=== PATIENT | female | born 1960 | race Caucasian/White ===

== ENCOUNTER 2016-10-11 15:59 | Emergency (ER) | payer MEDICARE ==
[~2016-10-11] VITALS: Ht 154.9 cm; Wt 56.7 kg
[~2016-10-11 15:59] MED LIST: ALPR0.25 PO; ALPR0.5T PO; ALPR1TAB2 PO; AMLO2.5T PO; AMOX1TAB11 PO; AMOX1TAB61 PO; AZIT1PAC7 PO; BUDE10.2 IH; CEFP200T PO; CLON0.5T3 PO; DOXY100C2 PO; DOXY100T PO; ESOM20CA PO; GUAI600T38 PO; HYDR-2666 PO; HYDR-2680 PO; IBUP200T77 PO; IPRA3AMP IH; IPRA3AMP NEB; LEVO500T38 PO; LISI-334 PO; LISI-338 PO; METH4TAB2 PO; MONT10TA9 PO; ONDA8TAB9 PO; PARO20TA2 PO; PRED-220 PO; PRED20TA PO; PREG25CA PO; PROAIR HFA8.5 GM INH; PROM5SYR2 PO; ROFL500T PO; SUCR1TAB29 PO; TIOT18CA IH; UMEC1DIS IH; VENTOLIN HFA18 GM INH
[2016-10-11] MEDS ORDERED: DIPHENHYDRAMINE 50 MG/ML VIAL IVP ONE (18:30)
[2016-10-11] MEDS ORDERED: METOCLOPRAMIDE HCL 10 MG/2 ML VIAL. IV ONE (18:30)
[2016-10-11] MEDS ORDERED: IV NORMAL SALINE 1000ML BAG 1,000 ML IV ONE (18:30)
[2016-10-11] MEDS ORDERED: KETOROLAC TROMETHAMINE 30 MG/ML SYRINGE. IV ONE (18:30)
[2016-10-11] MEDS ORDERED: IPRATRPIUM/ALBUTEROL 0.5/2.5MG 3 ML NEBU. NEB ONE (18:30)
[2016-10-11] MEDS ORDERED: PREDNISONE 20 MG TABLET PO ONE (18:30)
--- NOTE | 2016-10-11 18:47 | PHYS DOC ---
Past Medical History Past Medical History: Anxiety, COPD, Hypertension Additional Past Medical Histor: CATARACTS Past Surgical History: Hysterectomy, Tonsillectomy Additional Past Surgical Histo: SPINAL FUSION, LYPOMA REMOVED, R KNEE, L ELBOW NERVES Alcohol Use: None Drug Use: None Adult General Chief Complaint Chief Complaint: SHORTNESS OF BREATH HPI HPI Patient is a 56 year old female history of COPD and chronic respiratory failure presents complaining of 2 day history of increasing cough, wheezing, shortness of breath. She is on home oxygen as needed at home. She is currently not wearing it. She denies fever, chest pain, vomiting, diarrhea, abdominal pain, or urinary complaints. She is currently on Keflex again over cellulitis of her left foot. This is much improved, she says. Her cough is productive of a minimal amount of mucus. She does not smoke anymore. She has no other acute complaints. Also complains of a headache for 2 days. Review of Systems Review of Systems Constitutional: Denies fever or chills Eyes: Denies change in visual acuity, redness, or eye pain HENT: Denies nasal congestion or sore throat Respiratory: Coarse minimally productive cough, shortness of breath, and wheezing. Cardiovascular: Denies chest pain or palpitations. GI: Denies abdominal pain, nausea, vomiting, bloody stools or diarrhea : Denies dysuria or hematuria Musculoskeletal: Denies back pain or joint pain Integument: Denies rash or skin lesions Neurologic: Reports headache. Denies focal weakness or sensory changes Current Medications Current Medications Current Medications Medications (Trade) Dose Ordered Sig/Marian Start Time Stop Time Status Last Admin Dose Admin Albuterol/ Ipratropium (Duoneb) 3 ml 1X ONCE 10/11/16 18:30 10/11/16 18:31 DC 10/11/16 18:38 3 ML Diphenhydramine HCl (Benadryl) 25 mg 1X ONCE 10/11/16 18:30 10/11/16 18:31 DC 10/11/16 18:34 25 MG Ketorolac Tromethamine (Toradol) 30 mg 1X ONCE 10/11/16 18:30 10/11/16 18:31 DC 10/11/16 18:34 30 MG Metoclopramide HCl 10 mg 10 mg 1X ONCE 10/11/16 18:30 10/11/16 18:31 DC 10/11/16 18:34 10 MG Prednisone (Prednisone) 60 mg 1X ONCE 10/11/16 18:30 10/11/16 18:31 DC 10/11/16 18:34 60 MG Sodium Chloride (Iv Sodium Chloride 0.9% 1000ml Bag) 1,000 ml @ 1,000 mls/hr 1X ONCE 10/11/16 18:30 10/11/16 19:29 10/11/16 18:35 1,000 MLS/HR Allergies Allergies Allergies Coded Allergies Type Severity Reaction Last Updated Verified pregabalin Allergy Intermediate both legs from knee down to feet swelled up 09/09 Yes Physical Exam Physical Exam Constitutional: Well developed, well nourished, no acute distress, non-toxic appearance. HENT: Normocephalic, atraumatic, bilateral external ears normal, oropharynx moist, no oral exudates, nose normal. Eyes: PERRLA, EOMI, conjunctiva normal, no discharge. Neck: Normal range of motion, no tenderness, supple, no stridor. No JVD. Cardiovascular:Heart rate regular rhythm, no murmur Lungs & Thorax: Moderately diminished air movement throughout all lung white. Biphasic wheezing with prolonged expiratory phase. Breathing is nonlabored, no distress. Abdomen: Bowel sounds normal, soft, no tenderness, no masses, no pulsatile masses. Skin: Warm, dry, no erythema. Back: No tenderness, no CVA tenderness. Extremities: No tenderness, no cyanosis, no clubbing, ROM intact. Neurologic: Alert and oriented X 3, normal motor function, normal sensory function, no focal deficits noted. Psychologic: Affect normal, judgement normal, mood normal. Current Patient Data Vital Signs Vital Signs Date Time Temp Pulse Resp B/P Pulse Ox O2 Delivery O2 Flow Rate FiO2 10/11/16 18:39 100 Room Air 10/11/16 17:50 98.0 89 22 170/95 98.0 EKG EKG EKG: Sinus rhythm. Rate 82 bpm. Normal axis and intervals. No acute ST segment changes. EKG interpreted by me. Radiology/Procedures Radiology/Procedures [] Course & Med Decision Making Course & Med Decision Making Pertinent Labs and Imaging studies reviewed. (See chart for details) Patient appears to be having an acute COPD exacerbation. Her oxygen saturations are within normal range on room air. No respiratory distress. No fever. She feels much better after a DuoNeb treatment. She was given 60 mg of prednisone emergency department. I have advised every 4 hour nebs at home, continuing all of her maintenance inhalers, and I'm going to put her on a burst of prednisone for 4 more days. Return precautions were discussed and all questions were answered prior to discharge. I have recommended she follow up with her primary doctor within the week. Dragon Disclaimer Dragon Disclaimer This electronic medical record was generated, in whole or in part, using a voice recognition dictation system. Departure Departure Impression: Primary Impression: COPD exacerbation Disposition: HOME, SELF-CARE Condition: STABLE Referrals: FRANCES METZGER MD (PCP) Patient Instructions: Chronic Obstructive Pulmonary Disease Exacerbation, Easy- to-Read Additional Instructions: Continue with all of your home meds and inhalers as directed. Usual albuterol nebulizer every 4 hours as needed for shortness of breath and wheezing. Take the full course of the steroid, prednisone, as directed. If your breathing gets worse or is not improving, return to the emergency department. Otherwise, follow-up with your primary doctor in clinic within the week. Scripts Prednisone 20 Mg Tablet3 Tab PO DAILY #12 TAB Ref 0 Next dose 10/12/15 Prov:LINNETTE BOATENG MD 10/11/16 LINNETTE BOATENG MD Oct 11, 2016 18:43
[2016-10-11] MEDS ORDERED: PRED20TA PO (19:18)
[2016-10-11 19:29] VITALS: BP 172/77
--- NOTE | 2016-10-12 06:53 | EKG ---
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
== END 2016-10-11 19:30 | disposition home or self-care (01) ==
LOC: ER 15:59
DX: J44.1 Chronic obstructive pulmonary disease with (acute) exacerbation (principal); R51 Headache; I10 Essential (primary) hypertension; F41.9 Anxiety disorder, unspecified; Z90.710 Acquired absence of both cervix and uterus; Z98.49 Cataract extraction status, unspecified eye; Z99.81 Dependence on supplemental oxygen; Z88.8 Allergy status to other drugs, medicaments and biological substances
CPT/HCPCS: 94250; 94640; 96361; 96374; 96375; 99284; J1200; J1885; J2765; J7030; J7512; J7620; 93005

== ENCOUNTER 2016-11-05 18:09 | Inpatient (IN) | payer MEDICARE ==
[~2016-11-05] VITALS: Ht 157.5 cm; Wt 59.0 kg
[2016-11-05] MEDS ORDERED: IPRATRPIUM/ALBUTEROL 0.5/2.5MG 3 ML NEBU. ONE (18:20)
[2016-11-05] MEDS ORDERED: IV NORMAL SALINE 1000ML BAG 1,000 ML IV SCH (18:36)
--- NOTE | 2016-11-05 18:36 | PHYS DOC ---
Past Medical History Past Medical History: Anxiety, COPD, Hypertension Additional Past Medical Histor: CATARACTS Past Surgical History: Hysterectomy, Tonsillectomy Additional Past Surgical Histo: SPINAL FUSION, LYPOMA REMOVED, R KNEE, L ELBOW NERVES Alcohol Use: Rarely Drug Use: None Adult General Chief Complaint Chief Complaint: SHORTNESS OF BREATH HPI HPI Patient is a 56 year old female who presents with cough and SOB. Patient reports for the past week she has had a dry cough that then became productive today. She also reports fever/chills, wheezing, SOB, body aches. Has been on steroid taper (took 10mg prednisone today) and has been using breathing treatments with insufficient relief. No focal chest pain. Review of Systems Review of Systems Constitutional: Fever/chills Eyes: Denies change in visual acuity or eye pain HENT: Denies nasal congestion or sore throat Respiratory: Cough, wheezing, shortness of breath Cardiovascular: Denies chest pain GI: Denies abdominal pain, nausea, vomiting, bloody stools or diarrhea : Denies dysuria or hematuria Musculoskeletal: Body aches Integument: Denies rash or skin lesions Neurologic: Denies headache, focal weakness or sensory changes Current Medications Current Medications Current Medications Medications (Trade) Dose Ordered Sig/Marian Start Time Stop Time Status Last Admin Dose Admin Acetaminophen (Tylenol) 650 mg PRN Q4HRS PRN 11/05/16 22:00 11/06/16 21:59 Albuterol/ Ipratropium (Duoneb) 6 ml 1X ONCE 11/05/16 18:45 11/05/16 18:47 DC 11/05/16 18:44 6 ML Albuterol/ Ipratropium 3 ml 3 ml STK-MED ONCE 11/05/16 18:20 11/05/16 18:21 DC Morphine Sulfate 2 mg PRN Q2HR PRN 11/05/16 22:00 11/06/16 21:59 Ondansetron HCl (Zofran) 4 mg PRN Q8HRS PRN 11/05/16 22:00 11/06/16 21:59 Potassium Chloride (Klor-Con) 40 meq 1X ONCE 11/05/16 21:45 11/05/16 21:46 DC 11/05/16 22:01 40 MEQ Prednisone (Prednisone) 50 mg 1X ONCE 11/05/16 18:45 11/05/16 18:47 DC 11/05/16 18:50 50 MG Sodium Chloride (Iv Sodium Chloride 0.9% 1000ml Bag) 1,000 ml @ 1,000 mls/hr Q1H 11/05/16 18:36 11/05/16 19:35 DC 11/05/16 18:48 1,000 MLS/HR Allergies Allergies Allergies Coded Allergies Type Severity Reaction Last Updated Verified amlodipine Allergy Intermediate Swelling 11/05/16 Yes pregabalin Allergy Intermediate both legs from knee down to feet swelled up 09/09 Yes Physical Exam Physical Exam Constitutional: Well developed, well nourished, no acute distress, non-toxic appearance HENT: Normocephalic, atraumatic, bilateral external ears normal Eyes: EOMI, conjunctiva normal, no discharge Neck: Normal range of motion, no stridor Cardiovascular: Tachycardic, regular rhythm, no murmur Lungs & Thorax: Marked expiratory wheezing, dry cough Abdomen: Bowel sounds normal, soft, non-distended, no TTP Skin: Warm, dry, no erythema, no rash Extremities: No obvious deformity, no edema Neurologic: Alert and oriented X 3, no gross deficits noted Psychologic: Affect normal, judgement normal, mood normal Current Patient Data Vital Signs Vital Signs Date Time Temp Pulse Resp B/P Pulse Ox O2 Delivery O2 Flow Rate FiO2 11/05/16 18:45 26 11/05/16 18:36 Nasal Cannula 2.0 11/05/16 18:11 98.3 114 138/88 96 98.3 Lab Values Laboratory Tests Test 11/05/16 19:10 11/05/16 20:00 Influenza Type A Antigen Negative (NEGATIVE) Influenza Type B Antigen Negative (NEGATIVE) White Blood Count 6.5x10^3/uL (4.0-11.0) Red Blood Count 3.91x10^6/uL (3.50-5.40) Hemoglobin 11.4g/dL (12.0-15.5) L Hematocrit 35.1% (36.0-47.0) L Mean Corpuscular Volume 90fL (79-100) Mean Corpuscular Hemoglobin 29pg (25-35) Mean Corpuscular Hemoglobin Concent 33g/dL (31-37) Red Cell Distribution Width 14.2% (11.5-14.5) Platelet Count 305x10^3/uL (140-400) Neutrophils (%) (Auto) 71% (31-73) Lymphocytes (%) (Auto) 18% (24-48) L Monocytes (%) (Auto) 10% (0-9) H Eosinophils (%) (Auto) 1% (0-3) Basophils (%) (Auto) 1% (0-3) Neutrophils # (Auto) 4.6x10^3uL (1.8-7.7) Lymphocytes # (Auto) 1.2x10^3/uL (1.0-4.8) Monocytes # (Auto) 0.6x10^3/uL (0.0-1.1) Eosinophils # (Auto) 0.0x10^3/uL (0.0-0.7) Basophils # (Auto) 0.0x10^3/uL (0.0-0.2) Segmented Neutrophils % 53% (35-66) Band Neutrophils % 11% (0-9) H Lymphocytes % 23% (24-48) L Monocytes % 10% (0-10) Metamyelocytes % 2% (0-0) H Myelocytes % 1% (0-0) H Platelet Estimate Adequate (ADEQUATE) Sodium Level 141mmol/L (136-145) Potassium Level 3.2mmol/L (3.5-5.1) L Chloride Level 105mmol/L (98-107) Carbon Dioxide Level 30mmol/L (21-32) Anion Gap 6 (6-14) Blood Urea Nitrogen 12mg/dL (7-20) Creatinine 0.8mg/dL (0.6-1.0) Estimated GFR (Cockcroft-Gault) 73.7 Glucose Level 102mg/dL (70-99) H Calcium Level 8.5mg/dL (8.5-10.1) Troponin I Quantitative < 0.017ng/mL (0.000-0.055) Laboratory Tests 11/05/16 20:00 Laboratory Tests 11/05/16 20:00 EKG EKG EKG (my read): sinus rhythm, rate 117, normal axis, no acute ischemic changes Radiology/Procedures Radiology/Procedures CXR (my read): No significant change from prior Course & Med Decision Making Course & Med Decision Making Pertinent Labs and Imaging studies reviewed. (See chart for details) Patient is 56-year-old female who presents with cough, shortness of breath. Apparent COPD exacerbation, possibly exacerbated by viral URI. Will obtain EKG, chest x-ray, labs to evaluate. Breathing treatments, steroids, acetaminophen, pain medication ordered for relief of symptoms. Labs largely unremarkable. Slight hypokalemia, oral replacement ordered. Chest x-ray and EKG okay per my read. Patient still significantly wheezy and symptomatic even after treatments. Discussed results with patient. Discussed with Dr. Metzger, will admit under her care for further evaluation and treatment. Dragon Disclaimer Dragon Disclaimer This electronic medical record was generated, in whole or in part, using a voice recognition dictation system. Departure Departure Impression: Primary Impression: COPD exacerbation Disposition: ADMITTED INPATIENT Admitting Physician: Frances Metzger Condition: STABLE Referrals: FRANCES METZGER MD (PCP) KRISH GREENWOOD MD Nov 05, 2016 18:36
[2016-11-05] MEDS ORDERED: PREDNISONE 10 MG TABLET PO ONE (18:45)
[2016-11-05] MEDS ORDERED: MORPHINE SULFATE 4 MG/ML DISP.SYRIN. IV ONE (18:45)
[2016-11-05] MEDS ORDERED: IPRATRPIUM/ALBUTEROL 0.5/2.5MG 3 ML NEBU. NEB ONE (18:45)
[2016-11-05] MEDS ORDERED: ACETAMINOPHEN 500 MG TABLET PO ONE (18:45)
--- NOTE | 2016-11-05 18:57 | EKG ---
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
[2016-11-05 19:39] LABS: OBC FLU VALID
[2016-11-05 20:30] LABS: BASO % 1 % (0-3); EOS % 1 % (0-3); HEMATOCRIT 35.1 % (36.0-47.0); HEMOGLOBIN 11.4 g/dL (12.0-15.5); LYMPH # 1.2 x10^3/uL (1.0-4.8); LYMPH % 18 % (24-48); MEAN CORPUSCULAR HEMOGLOBIN 29 pg (25-35); MEAN CORPUSCULAR HGB CONC 33 g/dL (31-37); MEAN CORPUSCULAR VOLUME 90 fL (79-100); MONO % 10 % (0-9); NEUT % 71 % (31-73); PLATELET COUNT 305 x10^3/uL (140-400); RED BLOOD COUNT 3.91 x10^6/uL (3.50-5.40); RED CELL DISTRIBUTION WIDTH 14.2 % (11.5-14.5); WHITE BLOOD COUNT 6.5 x10^3/uL (4.0-11.0)
[2016-11-05 20:47] LABS: CALCIUM 8.5 mg/dL (8.5-10.1); CREATININE 0.8 mg/dL (0.6-1.0); GFR 73.7; POTASSIUM 3.2 mmol/L (3.5-5.1)
[2016-11-05 20:51] LABS: PLT ESTIMATE ADEQUATE (ADEQUATE)
[2016-11-05] MEDS ORDERED: POTASSIUM CHLORIDE 20 MEQ TABLET.ER. PO ONE (21:45)
[2016-11-05] MEDS ORDERED: ACETAMINOPHEN 325 MG TABLET. PO PRN (22:00)
[2016-11-05] MEDS ORDERED: ONDANSETRON PF 4 MG/2 ML VIAL. IV PRN (22:00)
--- NOTE | 2016-11-05 22:55 | ACF ---
Admission Forms Criteria COPD Clinical Indications for Admission to Inpatient Care (Place 'X' for any and all applicable criteria): Admission is indicated for ANY ONE of the following (1)(2)(3): [X]I. Acute exacerbation by high-risk comorbidity (e.g., pneumonia, dysrhythmia, heart failure, pleural effusion, pneumothorax) or severe underlying COPD (e.g., steroid dependent) [ ]II. Inpatient admission required rather than observation care (see Chronic Obstructive Pulmonary Disease: Observation Care) because of ANY ONE of the following: [ ]a) New or pre-existing signs or symptoms of COPD (eg, dyspnea or Tachypnea at rest or with minimal activity) that persist despite outpatient and observation care treatment [ ]b) New-onset hypoxemia (room air SaO2 less than 90%, PO2 less than 60 mm Hg (8.0 kPa)) that persists despite outpatient and observation care treatment [ ]c) Worsening of pre-existing hypoxemia (eg, new or increased requirement for supplemental oxygen to maintain oxygenation at baseline level) that persists despite outpatient and observation care treatment, with oxygen treatment needs performable only in acute inpatient setting [ ]d) Hypercarbia (PCO2 greater than 40 mm Hg (5.3 kPa))-induced respiratory acidosis (pH less than 7.35) that persists despite outpatient and observation care treatment [ ]e) Supplemental oxygen or respiratory treatments for over 24 hours that are performable only in acute inpatient setting [ ]f) Chest tube placement with active evacuation (e.g., suction, drainage) (5) [ ]g) Other condition, treatment or monitoring requiring inpatient admission [ ]III. Planned invasive surgical or diagnostic procedures requiring acute- care hospitalization [ ]IV. Acute respiratory failure (e.g., uncompensated hypercarbia, severe hypoxemia) [ ]V. Severe comorbid condition (e.g., severe steroid myopathy, acute vertebral fracture) that has acutely worsened pulmonary function [ ]. Confusion state, lethargy, obtundation, stupor or coma Extended stay beyond goal length of stay may be needed for (31)(32): [ ]a ) Respiratory Failure. [ ]b) Severe or persisting hypoxemia or hypercarbia [ ]c) Severe or persistent dyspnea [ ]d) Comorbidities (e.g. chronic heart failure, atrial fibrillation with rapid response, pneumonia) [ ]e) Malnutrition The original [facility] content created by [facility] has been revised. The portions of the content which have been revised are identified through the use of italic text or in bold, and [facility] has neither reviewed nor approved the modified material. All other unmodified content is copyright [facility]. Please see references footnoted in the original [facility] edition 2016 Admission Criteria Met?: Yes ARNEL COBB Nov 05, 2016 22:55
[2016-11-05 23:16] VITALS: BP 123/75
[2016-11-06 03:10] VITALS: BP 119/55
[2016-11-06] MEDS: MORPHINE SULFATE 2 MG/ML DISP.SYRIN. IV PRN ×3 (04:16→17:50)
[2016-11-06] MEDS: methylPREDNISolone SOD SUCC PF 40 MG/ML VIAL. IV SCH ×3 (05:02→21:15)
[2016-11-06] MEDS: GUAIFENESIN/CODEINE 100mg/10mg 5 ML LIQUID. PO PRN ×3 (05:02→21:22)
[2016-11-06] MEDS: HYDROCODONE/APAP 10/325 TABLET. PO PRN ×4 (05:02→21:22)
[2016-11-06] MEDS: ALBUTEROL SULFATE 2.5 MG/3 ML NEBU. NEB PRN (05:23)
[2016-11-06 06:24] LABS: BASO % 0 % (0-3); EOS % 0 % (0-3); HEMATOCRIT 35.5 % (36.0-47.0); HEMOGLOBIN 11.6 g/dL (12.0-15.5); LYMPH # 0.4 x10^3/uL (1.0-4.8); LYMPH % 9 % (24-48); MEAN CORPUSCULAR HEMOGLOBIN 29 pg (25-35); MEAN CORPUSCULAR HGB CONC 33 g/dL (31-37); MEAN CORPUSCULAR VOLUME 89 fL (79-100); MONO % 3 % (0-9); NEUT % 88 % (31-73); PLATELET COUNT 388 x10^3/uL (140-400); RED BLOOD COUNT 3.98 x10^6/uL (3.50-5.40); RED CELL DISTRIBUTION WIDTH 14.2 % (11.5-14.5); WHITE BLOOD COUNT 4.4 x10^3/uL (4.0-11.0)
[2016-11-06 06:51] LABS: CALCIUM 8.8 mg/dL (8.5-10.1); CREATININE 0.7 mg/dL (0.6-1.0); GFR 85.9
[2016-11-06 06:55] LABS: POTASSIUM 5.2 mmol/L (3.5-5.1)
[2016-11-06 07:00] VITALS: BP 132/79
[2016-11-06] MEDS: IPRATRPIUM/ALBUTEROL 0.5/2.5MG 3 ML NEBU. NEB SCH ×4 (07:22→19:08)
--- NOTE | 2016-11-06 07:51 | RAD ---
Two view chest History:Cough, shortness of breath . PA and lateral views of the chest are submitted. Comparison: 11/02/2016 Findings: There is no significant infiltrate, pleural effusion, or pneumothorax. The pericardial cardiac silhouette is within normal limits in size. The trachea is in the midline. There is again emphysema. There is atherosclerotic calcification of the aortic arch. Impression: There is no evidence of acute cardiopulmonary disease. There is again emphysema.
[2016-11-06 11:00] VITALS: BP 130/56
--- NOTE | 2016-11-06 12:47 | PDOC ---
OBJECTIVE Vital Signs Vital Signs Date Time Temp Pulse Resp B/P Pulse Ox O2 Delivery O2 Flow Rate FiO2 11/06/16 11:12 Nasal Cannula 2.0 11/06/16 11:07 96 Nasal Cannula 2.0 11/06/16 11:00 97.5 93 20 130/56 98 Nasal Cannula 2.0 97.5 11/06/16 09:09 96 Nasal Cannula 2.0 11/06/16 08:39 96 Nasal Cannula 2.0 11/06/16 08:00 Nasal Cannula 2.0 11/06/16 07:22 96 Nasal Cannula 2.0 11/06/16 07:00 97.7 89 20 132/79 97 Nasal Cannula 2.0 97.7 11/06/16 06:14 97 Nasal Cannula 2.0 11/06/16 05:24 97 Nasal Cannula 2.0 11/06/16 05:02 18 96 Nasal Cannula 2.0 11/06/16 04:52 18 11/06/16 04:16 18 96 Nasal Cannula 2.0 11/06/16 03:10 97.6 76 20 119/55 96 Nasal Cannula 97.6 11/05/16 23:55 Nasal Cannula 2.0 11/05/16 23:42 Nasal Cannula 2.0 11/05/16 23:16 97.7 84 20 123/75 97 Nasal Cannula 97.7 11/05/16 22:48 82 137/78 95 Nasal Cannula 11/05/16 22:18 88 151/100 95 Nasal Cannula 11/05/16 21:48 84 127/73 96 Room Air 11/05/16 21:18 84 135/86 96 Nasal Cannula 11/05/16 20:48 86 138/81 97 Nasal Cannula 11/05/16 20:18 86 126/75 97 Nasal Cannula 11/05/16 19:48 92 121/77 98 Nasal Cannula 11/05/16 18:45 26 11/05/16 18:36 Nasal Cannula 2.0 11/05/16 18:33 Nasal Cannula 2.0 11/05/16 18:11 98.3 114 28 138/88 96 Nasal Cannula 2 98.3 I & O Intake and Output 11/06/16 07:00 Intake Total 960 ml Output Total 1 ml Balance 959 ml Intake Oral 960 ml Output Stool Total 1 ml # Voids 1 ASSESSMENT/PLAN Assessment/Plan [id number] H&P dictated Problems: COMMENT Lab Laboratory Tests Test 11/05/16 19:10 11/05/16 20:00 11/06/16 05:30 11/06/16 05:40 Influenza Type A Antigen Negative (NEGATIVE) Influenza Type B Antigen Negative (NEGATIVE) White Blood Count 6.5x10^3/uL (4.0-11.0) 4.4x10^3/uL (4.0-11.0) Red Blood Count 3.91x10^6/uL (3.50-5.40) 3.98x10^6/uL (3.50-5.40) Hemoglobin 11.4g/dL (12.0-15.5) 11.6g/dL (12.0-15.5) Hematocrit 35.1% (36.0-47.0) 35.5% (36.0-47.0) Mean Corpuscular Volume 90fL (79-100) 89fL (79-100) Mean Corpuscular Hemoglobin 29pg (25-35) 29pg (25-35) Mean Corpuscular Hemoglobin Concent 33g/dL (31-37) 33g/dL (31-37) Red Cell Distribution Width 14.2% (11.5-14.5) 14.2% (11.5-14.5) Platelet Count 305x10^3/uL (140-400) 388x10^3/uL (140-400) Neutrophils (%) (Auto) 71% (31-73) 88% (31-73) Lymphocytes (%) (Auto) 18% (24-48) 9% (24-48) Monocytes (%) (Auto) 10% (0-9) 3% (0-9) Eosinophils (%) (Auto) 1% (0-3) 0% (0-3) Basophils (%) (Auto) 1% (0-3) 0% (0-3) Neutrophils # (Auto) 4.6x10^3uL (1.8-7.7) 3.9x10^3uL (1.8-7.7) Lymphocytes # (Auto) 1.2x10^3/uL (1.0-4.8) 0.4x10^3/uL (1.0-4.8) Monocytes # (Auto) 0.6x10^3/uL (0.0-1.1) 0.1x10^3/uL (0.0-1.1) Eosinophils # (Auto) 0.0x10^3/uL (0.0-0.7) 0.0x10^3/uL (0.0-0.7) Basophils # (Auto) 0.0x10^3/uL (0.0-0.2) 0.0x10^3/uL (0.0-0.2) Segmented Neutrophils % 53% (35-66) Band Neutrophils % 11% (0-9) Lymphocytes % 23% (24-48) Monocytes % 10% (0-10) Metamyelocytes % 2% (0-0) Myelocytes % 1% (0-0) Platelet Estimate Adequate (ADEQUATE) Sodium Level 141mmol/L (136-145) 140mmol/L (136-145) Potassium Level 3.2mmol/L (3.5-5.1) 5.2mmol/L (3.5-5.1) Chloride Level 105mmol/L (98-107) 106mmol/L (98-107) Carbon Dioxide Level 30mmol/L (21-32) 30mmol/L (21-32) Anion Gap 6 (6-14) 4 (6-14) Blood Urea Nitrogen 12mg/dL (7-20) 13mg/dL (7-20) Creatinine 0.8mg/dL (0.6-1.0) 0.7mg/dL (0.6-1.0) Estimated GFR (Cockcroft-Gault) 73.7 85.9 Glucose Level 102mg/dL (70-99) 128mg/dL (70-99) Calcium Level 8.5mg/dL (8.5-10.1) 8.8mg/dL (8.5-10.1) Troponin I Quantitative < 0.017ng/mL (0.000-0.055) FRANCES METZGER MD Nov 06, 2016 12:47
[2016-11-06] MEDS ORDERED: PROMETHAZINE HCL PO SCH (13:00)
[2016-11-06] MEDS ORDERED: ONDANSETRON ODT 4 MG TAB.RAPDIS PO PRN (13:00)
[2016-11-06] MEDS ORDERED: CODEINE PO SCH (13:00)
[2016-11-06] MEDS: CEFTRIAXONE SODIUM 1 GM in IV NORMAL SALINE 50ML 50 ML IV SCH (13:47)
[2016-11-06] MEDS: GUAIFENESIN ER 600 MG TABLET.ER PO SCH ×2 (13:48→21:15)
[2016-11-06] MEDS: PAROXETINE 20 MG TABLET. PO SCH (13:48)
[2016-11-06] MEDS: LISINOPRIL 20 MG TABLET PO SCH (13:48)
[2016-11-06] MEDS: AZITHROMYCIN 250 MG TABLET PO SCH (13:48)
[2016-11-06 15:00] VITALS: BP 147/79
[2016-11-06] MEDS: LACTOBACILLUS ACIDOPH & BULGAR 1 TABLET. PO SCH (15:22)
[2016-11-06] MEDS: ALPRAZOLAM 1 MG TABLET PO PRN ×2 (15:22→21:21)
[2016-11-06] MEDS: LOSARTAN POTASSIUM 50 MG TABLET. PO SCH (15:29)
[2016-11-06] MEDS: PANTOPRAZOLE 40 MG TABLET. PO SCH (17:48)
[2016-11-06 19:00] VITALS: BP 111/64
--- NOTE | 2016-11-06 20:57 | HP ---
ADMIT DATE: HISTORY OF PRESENT ILLNESS: The patient is a 56-year-old. She is admitted to room 514. She is known to have a history of COPD. She presented to the Emergency Room complaining of increasing cough and shortness of breath. She has been treated as an outpatient with antibiotics and steroids. However, she continued to have increasing shortness of breath and despite her breathing treatment at home, she still felt she cannot breathe and decided to come to the Emergency Room. She was given treatment in the Emergency Room and was still tight and wheezing. She was admitted for continuous monitoring and IV steroids with bronchodilators. PAST MEDICAL HISTORY: Significant for COPD and emphysema. She requires oxygen. She does have history of ____ peripheral neuropathy, peripheral vascular disease, hypertension, diverticulosis and diverticulitis, history of colon polyps, history of gastroesophageal reflux disease, history of cervical cancer, endometriosis, status post hysterectomy, history of osteoarthritis, history of back surgery with spine fusion, also knee surgery and elbow surgery, history of depression and anxiety, previous history of tonsillectomy, tinnitus and cataract. FAMILY HISTORY: Positive for hypertension. SOCIAL HISTORY: She stopped smoking, but has a 40-year history of smoking. She drinks alcohol occasionally. She denies use of any other drugs. She has received her pneumonia vaccine and flu shot and she is up to date on her tetanus shot. REVIEW OF SYSTEMS: CONSTITUTIONAL: Denies fever or chills. EYES: Denies visual changes. HEENT: Denies nasal congestion. RESPIRATORY: She does have cough, became productive to yellowish sputum last couple of days. Started as a dry cough about a week ago. She does have wheezing and shortness of breath. CARDIOVASCULAR: Denies chest pain. GASTROINTESTINAL: Denies abdominal pain, nausea, vomiting, diarrhea. GENITOURINARY: Denies dysuria. She does have stress incontinence. MUSCULOSKELETAL: She does have arthritis and body aches. DERMATOLOGY: Denies rash. NEUROLOGY: Denies focal weakness or headache. PHYSICAL EXAMINATION: GENERAL: She is alert and oriented, in mild distress due to the shortness of breath. HEENT: Normocephalic, atraumatic. Eyes: Pupils equal, round and reactive to light and accommodation. Conjunctivae normal. NECK: Supple. HEART: Mildly tachycardic, but regular rhythm. LUNGS: With diffuse wheezing bilaterally. Her wheezing was audible even without a stethoscope. ABDOMEN: Soft, nontender, no organomegaly, masses or bruits. EXTREMITIES: No edema, clubbing or cyanosis. NEUROLOGIC: Intact. IMPRESSION: 1. Chronic obstructive pulmonary disease exacerbation. 2. Acute on chronic bronchitis. 3. Hypokalemia, replaced. 4. Hypertension, hypertensive cardiovascular disease. OTHER DIAGNOSES: As per past medical history. FRANCES METZGER MD DR: DENZEL/[place] JOB#: [id number] / [id number]
[2016-11-06] MEDS: MONTELUKAST SODIUM 10 MG TABLET. PO SCH (21:15)
[2016-11-06 23:00] VITALS: BP 121/83
[2016-11-07] MEDS: HYDROCODONE/APAP 10/325 TABLET. PO PRN ×3 (02:36→21:33)
[2016-11-07 03:07] VITALS: BP 144/65
[2016-11-07] MEDS: GUAIFENESIN/CODEINE 100mg/10mg 5 ML LIQUID. PO PRN ×3 (03:30→21:32)
[2016-11-07] MEDS: ALBUTEROL SULFATE 2.5 MG/3 ML NEBU. NEB PRN (03:35)
[2016-11-07] MEDS: methylPREDNISolone SOD SUCC PF 40 MG/ML VIAL. IV SCH ×3 (06:10→21:27)
[2016-11-07 07:00] VITALS: BP 137/78
[2016-11-07] MEDS: IPRATRPIUM/ALBUTEROL 0.5/2.5MG 3 ML NEBU. NEB SCH ×4 (07:43→18:17)
[2016-11-07] MEDS ORDERED: AMLODIPINE BESYLATE 2.5 MG TABLET PO SCH (09:00)
[2016-11-07] MEDS ORDERED: NON FORMULARY ITEM (Umeclidinium Brm/Vilanterol Tr (Anoro Ellipta 62.5-25 Mcg Inh) 1 EACH) IH SCH (09:00)
[2016-11-07] MEDS: GUAIFENESIN ER 600 MG TABLET.ER PO SCH ×2 (09:15→21:27)
[2016-11-07] MEDS: AZITHROMYCIN 250 MG TABLET PO SCH (09:15)
[2016-11-07] MEDS: PANTOPRAZOLE 40 MG TABLET. PO SCH ×2 (09:15→17:46)
[2016-11-07] MEDS: PAROXETINE 20 MG TABLET. PO SCH (09:15)
[2016-11-07] MEDS: LACTOBACILLUS ACIDOPH & BULGAR 1 TABLET. PO SCH (09:15)
[2016-11-07] MEDS: LOSARTAN POTASSIUM 50 MG TABLET. PO SCH (09:16)
[2016-11-07] MEDS: LISINOPRIL 20 MG TABLET PO SCH (09:18)
--- NOTE | 2016-11-07 10:04 | PDOC ---
SUBJECTIVE Subjective still wheezing, but stable OBJECTIVE Vital Signs Vital Signs Date Time Temp Pulse Resp B/P Pulse Ox O2 Delivery O2 Flow Rate FiO2 11/07/16 09:27 22 96 Nasal Cannula 2.0 11/07/16 09:18 80 137/78 11/07/16 09:16 80 137/78 11/07/16 08:00 Nasal Cannula 2.0 11/07/16 07:43 96 Nasal Cannula 2.0 11/07/16 07:00 96.6 80 21 137/78 97 Nasal Cannula 2.0 96.6 11/07/16 03:35 20 Nasal Cannula 11/07/16 03:34 Nasal Cannula 2.0 11/07/16 03:07 97.7 92 20 144/65 95 Nasal Cannula 97.7 11/07/16 02:36 20 Nasal Cannula 2.0 11/06/16 23:00 95.9 92 20 121/83 97 Nasal Cannula 95.9 11/06/16 21:22 20 Nasal Cannula 2.0 11/06/16 19:10 Nasal Cannula 2.0 11/06/16 19:00 97.9 94 20 111/64 97 Nasal Cannula 97.9 11/06/16 18:20 96 Nasal Cannula 2.0 11/06/16 17:50 96 Nasal Cannula 2.0 11/06/16 16:29 96 2.0 11/06/16 15:59 Nasal Cannula 2.0 11/06/16 15:29 93 130/56 11/06/16 15:29 96 Nasal Cannula 2.0 11/06/16 15:00 97.9 93 20 147/79 98 Nasal Cannula 2.0 97.9 11/06/16 13:48 93 130/56 11/06/16 11:12 Nasal Cannula 2.0 11/06/16 11:07 96 Nasal Cannula 2.0 11/06/16 11:00 97.5 93 20 130/56 98 Nasal Cannula 2.0 97.5 I & O Intake and Output 11/07/16 07:00 Intake Total 440 ml Balance 440 ml Intake Oral 440 ml PHYSICAL EXAM Physical Exam lungs still with wheezes heart RRR abd soft ext no edema ASSESSMENT/PLAN Assessment/Plan continue plans Problems: FRANCES METZGER MD Nov 07, 2016 10:04
[2016-11-07 11:02] VITALS: BP 121/64
[2016-11-07] MEDS: ALPRAZOLAM 1 MG TABLET PO PRN ×2 (13:48→21:33)
[2016-11-07] MEDS: CEFTRIAXONE SODIUM 1 GM in IV NORMAL SALINE 50ML 50 ML IV SCH (13:58)
[2016-11-07 15:00] VITALS: BP 152/72
[2016-11-07 19:00] VITALS: BP 112/62
[2016-11-07] MEDS: MONTELUKAST SODIUM 10 MG TABLET. PO SCH (21:27)
[2016-11-07 23:00] VITALS: BP 126/66
[2016-11-08] MEDS: ALBUTEROL SULFATE 2.5 MG/3 ML NEBU. NEB PRN ×2 (02:59→12:38)
[2016-11-08 03:00] VITALS: BP 136/81
[2016-11-08] MEDS: GUAIFENESIN/CODEINE 100mg/10mg 5 ML LIQUID. PO PRN ×3 (04:15→18:27)
[2016-11-08] MEDS: methylPREDNISolone SOD SUCC PF 40 MG/ML VIAL. IV SCH ×3 (04:15→20:37)
[2016-11-08] MEDS: HYDROCODONE/APAP 10/325 TABLET. PO PRN ×3 (04:15→17:18)
[2016-11-08 07:00] VITALS: BP 155/77
[2016-11-08] MEDS: IPRATRPIUM/ALBUTEROL 0.5/2.5MG 3 ML NEBU. NEB SCH ×4 (08:02→20:09)
[2016-11-08] MEDS: PANTOPRAZOLE 40 MG TABLET. PO SCH ×2 (08:07→17:14)
[2016-11-08] MEDS: AZITHROMYCIN 250 MG TABLET PO SCH (08:08)
[2016-11-08] MEDS: GUAIFENESIN ER 600 MG TABLET.ER PO SCH ×2 (08:08→20:36)
[2016-11-08] MEDS: LACTOBACILLUS ACIDOPH & BULGAR 1 TABLET. PO SCH (08:08)
[2016-11-08] MEDS: PAROXETINE 20 MG TABLET. PO SCH (08:08)
[2016-11-08] MEDS: LOSARTAN POTASSIUM 50 MG TABLET. PO SCH (08:09)
[2016-11-08] MEDS: LISINOPRIL 20 MG TABLET PO SCH (08:10)
[2016-11-08] MEDS: ALPRAZOLAM 1 MG TABLET PO PRN ×2 (08:16→20:36)
--- NOTE | 2016-11-08 09:15 | PDOC ---
SUBJECTIVE Subjective feels tired and worn out, still wheezing , just had breathing treatment OBJECTIVE Vital Signs Vital Signs Date Time Temp Pulse Resp B/P Pulse Ox O2 Delivery O2 Flow Rate FiO2 11/08/16 08:17 Nasal Cannula 2.0 11/08/16 08:10 91 136/81 11/08/16 08:09 91 136/81 11/08/16 08:03 97 Nasal Cannula 2.0 11/08/16 08:00 Nasal Cannula 2.0 11/08/16 07:00 97.9 96 18 155/77 94 Nasal Cannula 2.0 97.9 11/08/16 05:15 18 96 Nasal Cannula 2.0 11/08/16 04:15 20 96 Nasal Cannula 2.0 11/08/16 03:00 97.5 91 22 136/81 95 Nasal Cannula 2.0 97.5 11/08/16 03:00 96 Nasal Cannula 2.0 11/07/16 23:00 97.9 76 22 126/66 93 Nasal Cannula 2.0 97.9 11/07/16 21:33 18 97 Nasal Cannula 2.0 11/07/16 19:20 Nasal Cannula 2.0 11/07/16 19:00 97.9 73 22 112/62 97 Nasal Cannula 2.0 97.9 11/07/16 18:17 94 Nasal Cannula 2.0 11/07/16 15:59 Nasal Cannula 2.0 11/07/16 15:00 97.7 91 21 152/72 96 Nasal Cannula 2.0 97.7 11/07/16 12:14 96 Nasal Cannula 2.0 11/07/16 11:02 98.8 86 20 121/64 97 Nasal Cannula 2.0 98.8 11/07/16 09:27 22 96 Nasal Cannula 2.0 11/07/16 09:18 80 137/78 11/07/16 09:16 80 137/78 I & O Intake and Output 11/08/16 07:00 Intake Total 2430 ml Output Total 3 ml Balance 2427 ml Intake Oral 2430 ml Output Urine Total 3 ml # Voids 6 PHYSICAL EXAM Physical Exam lungs still with wheezes heart RRR abd soft ext no edema ASSESSMENT/PLAN Assessment/Plan 1. Chronic obstructive pulmonary disease exacerbation. 2. Acute on chronic bronchitis. 3. Hypokalemia, replaced. 4. Hypertension, hypertensive cardiovascular disease. continue treatment plans , still not better but stable , nothing more to add except give her more time on current therapy Problems: FRANCES METZGER MD Nov 08, 2016 09:15
[2016-11-08 11:30] VITALS: BP 150/93
[2016-11-08] MEDS: CEFTRIAXONE SODIUM 1 GM in IV NORMAL SALINE 50ML 50 ML IV SCH (12:10)
--- NOTE | 2016-11-08 12:41 | EKG ---
[facility] [address] [place] [address] Test Date: 2016-11-08 Test Time: 12:39:54 Pat Name: CHUCKIE LOCO Department: Room: [facility] Gender: F Molder Vacuum: EVELYN : 1960 Requested By: FRANCES METZGER Order Number: [id number] Reading MD: Kris Doyle Measurements Intervals [place] Rate: 88 P: 63 AK: 128 QRS: 54 QRSD: 74 T: 34 QT: 338 QTc: 412 Interpretive Statements SINUS RHYTHM Electronically Signed On 11-10-2016 14:34:00 [employer] by Kris Doyle
[2016-11-08] MEDS: MORPHINE SULFATE 2 MG/ML DISP.SYRIN. IV PRN ×2 (13:19→20:36)
[2016-11-08 13:38] LABS: HCO3 ABG 31 mmol/L (21-28); PCO2 ABG 52 mmHg (35-46); PH ABG 7.39 (7.35-7.45); PO2 ABG 89 mmHg (75-108); SAT O2 ABG 97 % (92-99)
[2016-11-08 13:39] LABS: FIO2 ABG 32
[2016-11-08 15:00] VITALS: BP 143/72
--- NOTE | 2016-11-08 17:37 | PDOC ---
PULMONARY PROGRESS NOTES Vitals Vital Signs Date Time Temp Pulse Resp B/P Pulse Ox O2 Delivery O2 Flow Rate FiO2 11/08/16 17:18 Nasal Cannula 2.0 11/08/16 15:00 96.4 97 16 143/72 97 96.4 General: Alert, Oriented X4, No acute distress HEENT: Other Lungs: Wheezing, Other Cardiovascular: S1, S2 Abdomen: Soft, Non-tender Extremities: No Edema Labs Laboratory Tests Test 11/08/16 13:28 11/08/16 13:30 Troponin I Quantitative < 0.017ng/mL (0.000-0.055) O2 Saturation 97% (92-99) Arterial Blood pH 7.39 (7.35-7.45) Arterial Blood pCO2 at Patient Temp 52mmHg (35-46) Arterial Blood pO2 at Patient Temp 89mmHg (75-108) Arterial Blood HCO3 31mmol/L (21-28) Arterial Blood Base Excess 5mmol/L (-3-3) FiO2 32 Laboratory Tests Test 11/08/16 13:28 11/08/16 13:30 Troponin I Quantitative < 0.017ng/mL (0.000-0.055) O2 Saturation 97% (92-99) Arterial Blood pH 7.39 (7.35-7.45) Arterial Blood pCO2 at Patient Temp 52mmHg (35-46) Arterial Blood pO2 at Patient Temp 89mmHg (75-108) Arterial Blood HCO3 31mmol/L (21-28) Arterial Blood Base Excess 5mmol/L (-3-3) FiO2 32 Medications Active Scripts Medications Dose Route/Sig Days Date Category Dose Instructions Prednisone 20 Mg Tablet 3 Tab PO DAILY 10/11/16 Rx Next dose 10/12/15 Zofran (Ondansetron Hcl) 8 Mg Tablet 1 Tab PO Q8HRS PRN 07/14/16 Rx Prednisone 20 Mg Tablet 20 Mg PO 3X3DAY THEN 2X3DAY T 06/27/16 Rx Prometh-Codein 6.25-10 mg/5 ml (Promethazine HCl/Codeine) 5 Ml Syrup 5 Ml PO QID 10 06/27/16 Rx Paroxetine Hcl 20 Mg Tablet 20 Mg PO DAILY 30 06/27/16 Rx Montelukast Sodium Tablet (Montelukast Sodium) 10 Mg Tablet 10 Mg PO QHS 30 06/27/16 Rx Mucinex (Guaifenesin) 600 Mg Tablet.er 600 Mg PO BID 30 06/27/16 Rx Cefpodoxime Proxetil 200 Mg Tablet 200 Mg PO BID 5 06/27/16 Rx Amlodipine Besylate 2.5 Mg Tablet 2.5 Mg PO DAILY 30 06/27/16 Rx Lortab 10-325 mg Tablet (Hydrocodone/Acetaminophen) 1 Each Tablet 1 Tab PO PRN Q4HRS PRN 06/20/16 Reported Xanax (Alprazolam) 1 Mg Tablet 1 Tab PO QIDPRN PRN 06/20/16 Reported Anoro Ellipta 62.5-25 Mcg Inh (Umeclidinium Brm/Vilanterol Tr) 1 Each Disk.w.dev 1 Each IH DAILY 06/06/16 Reported Duoneb 0.5-3(2.5) Mg/3 Ml (Albuterol/Ipratropium) 3 Ml Ampul.neb 3 Ml NEB RTQID 30 03/19/16 Rx Ventolin Hfa Inhaler (Albuterol Sulfate) 18 Gm Hfa.aer.ad 2 Puff INH PRN Q4HRS PRN 03/14/16 Reported Nexium Capsule (Esomeprazole Magnesium) 20 Mg Capsule.dr 2 Cap PO DAILY 03/14/16 Reported Lisinopril 20 Mg Tablet 1 Tab PO DAILY 03/14/16 Reported Daliresp (Roflumilast) 500 Mcg Tablet 1 Tab PO DAILY 03/14/16 Reported Impression . full note dictated thanks acute resp distress sec to aecopd and GERD no need for bipap at this time thanks GOPI GONZALEZ MD Nov 08, 2016 17:37
[2016-11-08 19:00] VITALS: BP 163/85
[2016-11-08] MEDS: MONTELUKAST SODIUM 10 MG TABLET. PO SCH (20:36)
[2016-11-09] VITALS (7 sets, daily range): BP systolic 124–169; BP diastolic 77–87
[2016-11-09] MEDS: IPRATRPIUM/ALBUTEROL 0.5/2.5MG 3 ML NEBU. NEB SCH ×4 (05:06→20:50)
[2016-11-09 05:36] LABS: HEMATOCRIT 34.9 % (36.0-47.0); HEMOGLOBIN 11.5 g/dL (12.0-15.5); RED BLOOD COUNT 3.89 x10^6/uL (3.50-5.40); RED CELL DISTRIBUTION WIDTH 14.2 % (11.5-14.5); WHITE BLOOD COUNT 8.2 x10^3/uL (4.0-11.0)
[2016-11-09] MEDS: ALPRAZOLAM 1 MG TABLET PO PRN ×3 (05:43→20:35)
[2016-11-09] MEDS: MORPHINE SULFATE 2 MG/ML DISP.SYRIN. IV PRN (05:44)
[2016-11-09] MEDS: methylPREDNISolone SOD SUCC PF 40 MG/ML VIAL. IV SCH ×3 (05:44→20:35)
[2016-11-09 05:47] LABS: CALCIUM 8.9 mg/dL (8.5-10.1); CREATININE 0.8 mg/dL (0.6-1.0); GFR 73.7; POTASSIUM 4.5 mmol/L (3.5-5.1)
[2016-11-09] MEDS: ALBUTEROL SULFATE 2.5 MG/3 ML NEBU. NEB PRN ×2 (08:01→13:17)
[2016-11-09] MEDS: PANTOPRAZOLE 40 MG TABLET. PO SCH ×2 (08:51→18:30)
[2016-11-09] MEDS: LACTOBACILLUS ACIDOPH & BULGAR 1 TABLET. PO SCH (08:51)
[2016-11-09] MEDS: AZITHROMYCIN 250 MG TABLET PO SCH (08:51)
[2016-11-09] MEDS: LOSARTAN POTASSIUM 50 MG TABLET. PO SCH (08:51)
[2016-11-09] MEDS: GUAIFENESIN ER 600 MG TABLET.ER PO SCH ×2 (08:51→20:35)
[2016-11-09] MEDS: GUAIFENESIN/CODEINE 100mg/10mg 5 ML LIQUID. PO PRN ×2 (08:52→18:31)
[2016-11-09] MEDS: LISINOPRIL 20 MG TABLET PO SCH (08:52)
[2016-11-09] MEDS: PAROXETINE 20 MG TABLET. PO SCH (08:52)
--- NOTE | 2016-11-09 09:40 | PDOC ---
SUBJECTIVE Subjective still wheezing, but somewhat better OBJECTIVE Vital Signs Vital Signs Date Time Temp Pulse Resp B/P Pulse Ox O2 Delivery O2 Flow Rate FiO2 11/09/16 08:52 92 136/84 11/09/16 08:51 92 136/84 11/09/16 08:01 97 Nasal Cannula 3.0 11/09/16 07:15 98.4 92 22 136/84 96 Nasal Cannula 3.0 98.4 11/09/16 06:11 97 Nasal Cannula 3.0 11/09/16 05:44 97 Nasal Cannula 3.0 11/09/16 05:06 97 Nasal Cannula 3.0 11/09/16 03:08 97.5 64 20 169/86 96 Nasal Cannula 3.0 97.5 11/09/16 03:06 97.5 91 20 135/79 96 Nasal Cannula 97.5 11/08/16 20:36 96 Nasal Cannula 3.0 11/08/16 20:10 96 Nasal Cannula 3.0 11/08/16 20:00 Nasal Cannula 3.0 11/08/16 19:00 97.7 92 20 163/85 95 Nasal Cannula 97.7 11/08/16 18:45 Nasal Cannula 2.0 11/08/16 17:18 Nasal Cannula 2.0 11/08/16 15:50 Nasal Cannula 3.0 11/08/16 15:00 96.4 97 16 143/72 97 Nasal Cannula 2.0 96.4 11/08/16 13:19 Nasal Cannula 3.0 11/08/16 12:38 96 Nasal Cannula 3.0 11/08/16 11:50 98 Nasal Cannula 2.0 11/08/16 11:30 97.4 94 22 150/93 98 Nasal Cannula 2.0 97.4 I & O Intake and Output 11/09/16 07:00 Intake Total 570 ml Output Total 3 ml Balance 567 ml Intake Oral 520 ml IV Total 50 ml Urine/Stool Mix 3 ml PHYSICAL EXAM Physical Exam bilateral scattered wheezes ASSESSMENT/PLAN Assessment/Plan continue present plans Problems: COMMENT Lab Laboratory Tests Test 11/08/16 13:28 11/08/16 13:30 11/09/16 04:16 Troponin I Quantitative < 0.017ng/mL (0.000-0.055) O2 Saturation 97% (92-99) Arterial Blood pH 7.39 (7.35-7.45) Arterial Blood pCO2 at Patient Temp 52mmHg (35-46) Arterial Blood pO2 at Patient Temp 89mmHg (75-108) Arterial Blood HCO3 31mmol/L (21-28) Arterial Blood Base Excess 5mmol/L (-3-3) FiO2 32 White Blood Count 8.2x10^3/uL (4.0-11.0) Red Blood Count 3.89x10^6/uL (3.50-5.40) Hemoglobin 11.5g/dL (12.0-15.5) Hematocrit 34.9% (36.0-47.0) Mean Corpuscular Volume 90fL (79-100) Mean Corpuscular Hemoglobin 29pg (25-35) Mean Corpuscular Hemoglobin Concent 33g/dL (31-37) Red Cell Distribution Width 14.2% (11.5-14.5) Platelet Count 368x10^3/uL (140-400) Sodium Level 145mmol/L (136-145) Potassium Level 4.5mmol/L (3.5-5.1) Chloride Level 105mmol/L (98-107) Carbon Dioxide Level 36mmol/L (21-32) Anion Gap 4 (6-14) Blood Urea Nitrogen 26mg/dL (7-20) Creatinine 0.8mg/dL (0.6-1.0) Estimated GFR (Cockcroft-Gault) 73.7 Glucose Level 109mg/dL (70-99) Calcium Level 8.9mg/dL (8.5-10.1) FRANCES METZGER MD Nov 09, 2016 09:40
--- NOTE | 2016-11-09 11:51 | PDOC ---
PULMONARY PROGRESS NOTES Subjective PT LESS SOA AT TIMES Vitals Vital Signs Date Time Temp Pulse Resp B/P Pulse Ox O2 Delivery O2 Flow Rate FiO2 11/09/16 11:13 98.2 76 20 124/85 97 Nasal Cannula 3.0 98.2 General: Alert, No acute distress HEENT: Other Lungs: Wheezing Cardiovascular: S1, S2 Abdomen: Soft, Non-tender Neuro Exam: Alert Extremities: No Edema Skin: Warm Labs Laboratory Tests Test 11/08/16 13:28 11/08/16 13:30 11/09/16 04:16 Troponin I Quantitative < 0.017ng/mL (0.000-0.055) O2 Saturation 97% (92-99) Arterial Blood pH 7.39 (7.35-7.45) Arterial Blood pCO2 at Patient Temp 52mmHg (35-46) Arterial Blood pO2 at Patient Temp 89mmHg (75-108) Arterial Blood HCO3 31mmol/L (21-28) Arterial Blood Base Excess 5mmol/L (-3-3) FiO2 32 White Blood Count 8.2x10^3/uL (4.0-11.0) Red Blood Count 3.89x10^6/uL (3.50-5.40) Hemoglobin 11.5g/dL (12.0-15.5) Hematocrit 34.9% (36.0-47.0) Mean Corpuscular Volume 90fL (79-100) Mean Corpuscular Hemoglobin 29pg (25-35) Mean Corpuscular Hemoglobin Concent 33g/dL (31-37) Red Cell Distribution Width 14.2% (11.5-14.5) Platelet Count 368x10^3/uL (140-400) Sodium Level 145mmol/L (136-145) Potassium Level 4.5mmol/L (3.5-5.1) Chloride Level 105mmol/L (98-107) Carbon Dioxide Level 36mmol/L (21-32) Anion Gap 4 (6-14) Blood Urea Nitrogen 26mg/dL (7-20) Creatinine 0.8mg/dL (0.6-1.0) Estimated GFR (Cockcroft-Gault) 73.7 Glucose Level 109mg/dL (70-99) Calcium Level 8.9mg/dL (8.5-10.1) Laboratory Tests Test 11/08/16 13:28 11/08/16 13:30 11/09/16 04:16 Troponin I Quantitative < 0.017ng/mL (0.000-0.055) O2 Saturation 97% (92-99) Arterial Blood pH 7.39 (7.35-7.45) Arterial Blood pCO2 at Patient Temp 52mmHg (35-46) Arterial Blood pO2 at Patient Temp 89mmHg (75-108) Arterial Blood HCO3 31mmol/L (21-28) Arterial Blood Base Excess 5mmol/L (-3-3) FiO2 32 White Blood Count 8.2x10^3/uL (4.0-11.0) Red Blood Count 3.89x10^6/uL (3.50-5.40) Hemoglobin 11.5g/dL (12.0-15.5) Hematocrit 34.9% (36.0-47.0) Mean Corpuscular Volume 90fL (79-100) Mean Corpuscular Hemoglobin 29pg (25-35) Mean Corpuscular Hemoglobin Concent 33g/dL (31-37) Red Cell Distribution Width 14.2% (11.5-14.5) Platelet Count 368x10^3/uL (140-400) Sodium Level 145mmol/L (136-145) Potassium Level 4.5mmol/L (3.5-5.1) Chloride Level 105mmol/L (98-107) Carbon Dioxide Level 36mmol/L (21-32) Anion Gap 4 (6-14) Blood Urea Nitrogen 26mg/dL (7-20) Creatinine 0.8mg/dL (0.6-1.0) Estimated GFR (Cockcroft-Gault) 73.7 Glucose Level 109mg/dL (70-99) Calcium Level 8.9mg/dL (8.5-10.1) Medications Active Scripts Medications Dose Route/Sig Days Date Category Dose Instructions Prednisone 20 Mg Tablet 3 Tab PO DAILY 10/11/16 Rx Next dose 10/12/15 Zofran (Ondansetron Hcl) 8 Mg Tablet 1 Tab PO Q8HRS PRN 07/14/16 Rx Prednisone 20 Mg Tablet 20 Mg PO 3X3DAY THEN 2X3DAY T 06/27/16 Rx Prometh-Codein 6.25-10 mg/5 ml (Promethazine HCl/Codeine) 5 Ml Syrup 5 Ml PO QID 10 06/27/16 Rx Paroxetine Hcl 20 Mg Tablet 20 Mg PO DAILY 30 06/27/16 Rx Montelukast Sodium Tablet (Montelukast Sodium) 10 Mg Tablet 10 Mg PO QHS 30 06/27/16 Rx Mucinex (Guaifenesin) 600 Mg Tablet.er 600 Mg PO BID 30 06/27/16 Rx Cefpodoxime Proxetil 200 Mg Tablet 200 Mg PO BID 5 06/27/16 Rx Amlodipine Besylate 2.5 Mg Tablet 2.5 Mg PO DAILY 30 06/27/16 Rx Lortab 10-325 mg Tablet (Hydrocodone/Acetaminophen) 1 Each Tablet 1 Tab PO PRN Q4HRS PRN 06/20/16 Reported Xanax (Alprazolam) 1 Mg Tablet 1 Tab PO QIDPRN PRN 06/20/16 Reported Anoro Ellipta 62.5-25 Mcg Inh (Umeclidinium Brm/Vilanterol Tr) 1 Each Disk.w.dev 1 Each IH DAILY 06/06/16 Reported Duoneb 0.5-3(2.5) Mg/3 Ml (Albuterol/Ipratropium) 3 Ml Ampul.neb 3 Ml NEB RTQID 30 03/19/16 Rx Ventolin Hfa Inhaler (Albuterol Sulfate) 18 Gm Hfa.aer.ad 2 Puff INH PRN Q4HRS PRN 03/14/16 Reported Nexium Capsule (Esomeprazole Magnesium) 20 Mg Capsule.dr 2 Cap PO DAILY 03/14/16 Reported Lisinopril 20 Mg Tablet 1 Tab PO DAILY 03/14/16 Reported Daliresp (Roflumilast) 500 Mcg Tablet 1 Tab PO DAILY 03/14/16 Reported Impression . 1. Acute respiratory failure secondary to acute exacerbation of chronic obstructive pulmonary disease precipitated with secondary to nonspecific acute bacterial bronchitis and reflux. 2. Acute reflux causing possible mild aspiration, leading to bronchospasm and wheezing. 3. Hypertension. Plan . AVOID CAFFEINE CONTINUE THE SAME I INFORMED THE PT THAT SHE WILL COUGH FOR 4-6 WEEKS, S/P INFECTIOUS COUGH SHE WILL WHEEZE FOR A WHILE D/C HOME ON STEROIDS AND TESSALON PERLES IN AM OK BY GOPI JARQUIN MD Nov 09, 2016 11:51
--- NOTE | 2016-11-09 12:33 | CONS ---
DATE OF CONSULTATION: 11/08/2016 ATTENDING PHYSICIAN: Dr. Marco Arriola. REASON FOR CONSULTATION: The patient seen in pulmonary consultation at the request of Dr. Arriola for acute onset of shortness of air. HISTORY OF PRESENT ILLNESS: The patient is a 56-year-old admitted several days ago with acute exacerbation of COPD. She was improving earlier today, a ____ was called. The patient became increasingly more short of breath, epigastric discomfort, some lower chest discomfort wrapping around her chest. Rapid response was called. I was called with her presentation stat arterial blood gas was obtained revealing a pH of 7.39, PaCO2 of 52, pO2 of 89. The patient was given nebulized treatments and steroids. At the time of my evaluation, her episode has completely resolved. According to her caffeine intake, she is drinking lots of caffeine and complains of previous heartburn type of symptoms. She has a cough, mostly nonproductive. Her main complaint is the wheezing. She denies nausea, vomiting, diarrhea. PAST MEDICAL HISTORY: Remarkable for COPD of the emphysematous type. She requires oxygen on a p.r.n. basis. She has a history of peripheral vascular disease, peripheral neuropathy, diverticulosis, diverticulitis, previous history of colon polyps, gastroesophageal reflux, cervical cancer and endometriosis status post hysterectomy, previous history of osteoarthritis, back surgery, spinal fusion, knee surgery, elbow surgery, cataract, and depression. PAST SURGICAL HISTORY: As above. FAMILY HISTORY: Hypertension. SOCIAL HISTORY: She quit tobacco, smoked for 40 years 1 pack of cigarettes a day, denied any illicit drug use. REVIEW OF SYSTEMS: As indicated above, otherwise, a 10-point system was reviewed and negative. CURRENT MEDICATIONS: List was reviewed. PHYSICAL EXAMINATION: GENERAL: The patient during my evaluation with no significant respiratory distress on 2 liters of oxygen supplementation. HEENT: Eyes, the sclerae were nonicteric. NECK: Jugular venous distention was not elevated. No lymphadenopathy. CHEST: Full expansion. LUNGS: Very poor airway flow with no wheezes. CARDIOVASCULAR: Regular rate and rhythm with S1, S2, no S3. ABDOMEN: Soft, nontender, nondistended. EXTREMITIES: No clubbing, cyanosis or edema. NEUROLOGIC: The patient was awake, alert, following commands. A detailed neuro exam was not performed. LABORATORY DATA: Reviewed. Chest x-ray revealed no acute cardiopulmonary process. Arterial blood gas as indicated above. White count was normal. Hemoglobin and hematocrit were noted. Electrolytes were noted. IMPRESSION: 1. Acute respiratory failure secondary to acute exacerbation of chronic obstructive pulmonary disease precipitated with secondary to nonspecific acute bacterial bronchitis and reflux. 2. Acute reflux causing possible mild aspiration, leading to bronchospasm and wheezing. 3. Hypertension. PLAN: 1. Arterial blood gas obtained, I have reviewed this as indicated above, the patient does not require BiPAP at this time. 2. Continue current medical management. 3. The patient instructed to avoid all caffeinated beverages and drink water. 4. Continue Protonix. 5. Head of bed at 30 degrees. I do appreciate the privilege in sharing in the patient's care. GOPI GONZALEZ MD DR: DALLIN/[place] JOB#: [id number] / [id number]
[2016-11-09] MEDS: HYDROCODONE/APAP 10/325 TABLET. PO PRN ×3 (12:59→22:46)
[2016-11-09] MEDS: CEFTRIAXONE SODIUM 1 GM in IV NORMAL SALINE 50ML 50 ML IV SCH (12:59)
[2016-11-09] MEDS: MONTELUKAST SODIUM 10 MG TABLET. PO SCH (20:35)
[2016-11-10] MEDS: ALBUTEROL SULFATE 2.5 MG/3 ML NEBU. NEB PRN ×3 (00:54→09:11)
[2016-11-10] MEDS: GUAIFENESIN/CODEINE 100mg/10mg 5 ML LIQUID. PO PRN ×3 (01:06→16:51)
[2016-11-10 03:00] VITALS: BP 153/86
[2016-11-10] MEDS: ALPRAZOLAM 1 MG TABLET PO PRN ×3 (05:49→21:39)
[2016-11-10] MEDS: HYDROCODONE/APAP 10/325 TABLET. PO PRN ×3 (05:50→14:18)
[2016-11-10] MEDS: methylPREDNISolone SOD SUCC PF 40 MG/ML VIAL. IV SCH ×2 (05:50→14:18)
[2016-11-10] MEDS: IPRATRPIUM/ALBUTEROL 0.5/2.5MG 3 ML NEBU. NEB SCH ×4 (06:06→19:26)
[2016-11-10 07:00] VITALS: BP 164/79
[2016-11-10] MEDS: PAROXETINE 20 MG TABLET. PO SCH (09:25)
[2016-11-10] MEDS: GUAIFENESIN ER 600 MG TABLET.ER PO SCH ×2 (09:25→21:39)
[2016-11-10] MEDS: LOSARTAN POTASSIUM 50 MG TABLET. PO SCH (09:25)
[2016-11-10] MEDS: LACTOBACILLUS ACIDOPH & BULGAR 1 TABLET. PO SCH (09:26)
[2016-11-10] MEDS: AZITHROMYCIN 250 MG TABLET PO SCH (09:26)
[2016-11-10] MEDS: PANTOPRAZOLE 40 MG TABLET. PO SCH ×2 (09:26→16:46)
[2016-11-10] MEDS: LISINOPRIL 20 MG TABLET PO SCH (09:26)
--- NOTE | 2016-11-10 09:42 | PDOC ---
PULMONARY PROGRESS NOTES Subjective PT LESS SOA AT TIMES Vitals Vital Signs Date Time Temp Pulse Resp B/P Pulse Ox O2 Delivery O2 Flow Rate FiO2 11/10/16 09:26 102 164/79 11/10/16 09:12 Nasal Cannula 2.0 11/10/16 07:00 97.5 21 95 97.5 General: Alert, No acute distress HEENT: Other Lungs: Wheezing Cardiovascular: S1, S2 Abdomen: Soft, Non-tender Neuro Exam: Alert Extremities: No Edema Skin: Warm Labs Laboratory Tests Test 11/08/16 13:28 11/08/16 13:30 11/09/16 04:16 Troponin I Quantitative < 0.017ng/mL (0.000-0.055) O2 Saturation 97% (92-99) Arterial Blood pH 7.39 (7.35-7.45) Arterial Blood pCO2 at Patient Temp 52mmHg (35-46) Arterial Blood pO2 at Patient Temp 89mmHg (75-108) Arterial Blood HCO3 31mmol/L (21-28) Arterial Blood Base Excess 5mmol/L (-3-3) FiO2 32 White Blood Count 8.2x10^3/uL (4.0-11.0) Red Blood Count 3.89x10^6/uL (3.50-5.40) Hemoglobin 11.5g/dL (12.0-15.5) Hematocrit 34.9% (36.0-47.0) Mean Corpuscular Volume 90fL (79-100) Mean Corpuscular Hemoglobin 29pg (25-35) Mean Corpuscular Hemoglobin Concent 33g/dL (31-37) Red Cell Distribution Width 14.2% (11.5-14.5) Platelet Count 368x10^3/uL (140-400) Sodium Level 145mmol/L (136-145) Potassium Level 4.5mmol/L (3.5-5.1) Chloride Level 105mmol/L (98-107) Carbon Dioxide Level 36mmol/L (21-32) Anion Gap 4 (6-14) Blood Urea Nitrogen 26mg/dL (7-20) Creatinine 0.8mg/dL (0.6-1.0) Estimated GFR (Cockcroft-Gault) 73.7 Glucose Level 109mg/dL (70-99) Calcium Level 8.9mg/dL (8.5-10.1) Medications Active Scripts Medications Dose Route/Sig Days Date Category Dose Instructions Prednisone 20 Mg Tablet 3 Tab PO DAILY 10/11/16 Rx Next dose 10/12/15 Zofran (Ondansetron Hcl) 8 Mg Tablet 1 Tab PO Q8HRS PRN 07/14/16 Rx Prednisone 20 Mg Tablet 20 Mg PO 3X3DAY THEN 2X3DAY T 06/27/16 Rx Prometh-Codein 6.25-10 mg/5 ml (Promethazine HCl/Codeine) 5 Ml Syrup 5 Ml PO QID 10 06/27/16 Rx Paroxetine Hcl 20 Mg Tablet 20 Mg PO DAILY 30 06/27/16 Rx Montelukast Sodium Tablet (Montelukast Sodium) 10 Mg Tablet 10 Mg PO QHS 30 06/27/16 Rx Mucinex (Guaifenesin) 600 Mg Tablet.er 600 Mg PO BID 30 06/27/16 Rx Cefpodoxime Proxetil 200 Mg Tablet 200 Mg PO BID 5 06/27/16 Rx Amlodipine Besylate 2.5 Mg Tablet 2.5 Mg PO DAILY 30 06/27/16 Rx Lortab 10-325 mg Tablet (Hydrocodone/Acetaminophen) 1 Each Tablet 1 Tab PO PRN Q4HRS PRN 06/20/16 Reported Xanax (Alprazolam) 1 Mg Tablet 1 Tab PO QIDPRN PRN 06/20/16 Reported Anoro Ellipta 62.5-25 Mcg Inh (Umeclidinium Brm/Vilanterol Tr) 1 Each Disk.w.dev 1 Each IH DAILY 06/06/16 Reported Duoneb 0.5-3(2.5) Mg/3 Ml (Albuterol/Ipratropium) 3 Ml Ampul.neb 3 Ml NEB RTQID 30 03/19/16 Rx Ventolin Hfa Inhaler (Albuterol Sulfate) 18 Gm Hfa.aer.ad 2 Puff INH PRN Q4HRS PRN 03/14/16 Reported Nexium Capsule (Esomeprazole Magnesium) 20 Mg Capsule.dr 2 Cap PO DAILY 03/14/16 Reported Lisinopril 20 Mg Tablet 1 Tab PO DAILY 03/14/16 Reported Daliresp (Roflumilast) 500 Mcg Tablet 1 Tab PO DAILY 03/14/16 Reported Impression . 1. Acute respiratory failure secondary to acute exacerbation of chronic obstructive pulmonary disease precipitated with secondary to nonspecific acute bacterial bronchitis and reflux. 2. Acute reflux causing possible mild aspiration, leading to bronchospasm and wheezing. 3. Hypertension. Plan . AVOID CAFFEINE CONTINUE THE SAME I INFORMED THE PT THAT SHE WILL COUGH FOR 4-6 WEEKS, S/P INFECTIOUS COUGH SHE WILL WHEEZE FOR A WHILE D/C HOME ON STEROIDS AND TESSALON PERLES IN AM OK BY GOPI JARQUIN MD Nov 10, 2016 09:42
--- NOTE | 2016-11-10 09:43 | PDOC ---
SUBJECTIVE Subjective still very tight this AM called for extra breathing treatment OBJECTIVE Vital Signs Vital Signs Date Time Temp Pulse Resp B/P Pulse Ox O2 Delivery O2 Flow Rate FiO2 11/10/16 09:26 102 164/79 11/10/16 09:25 102 164/79 11/10/16 09:12 Nasal Cannula 2.0 11/10/16 07:00 97.5 102 21 164/79 95 Nasal Cannula 2.0 97.5 11/10/16 06:50 97 Nasal Cannula 4.0 11/10/16 06:07 97 Nasal Cannula 4.0 11/10/16 05:50 91 Nasal Cannula 3.0 11/10/16 03:00 97.9 106 22 153/86 91 Nasal Cannula 3.0 97.9 11/10/16 00:55 99 Nasal Cannula 4.0 11/09/16 22:54 98.4 96 20 150/87 98 Nasal Cannula 3.0 98.4 11/09/16 22:46 99 Nasal Cannula 3.0 11/09/16 20:52 99 Nasal Cannula 3.0 11/09/16 20:00 Nasal Cannula 3.0 11/09/16 19:00 97.9 93 20 148/77 97 Nasal Cannula 3.0 97.9 11/09/16 18:31 Nasal Cannula 2.0 11/09/16 16:06 99 Nasal Cannula 3.0 11/09/16 15:11 98.2 89 18 136/78 97 Nasal Cannula 3.0 98.2 11/09/16 13:18 99 Nasal Cannula 3.0 11/09/16 12:59 Nasal Cannula 2.0 11/09/16 12:07 99 Nasal Cannula 3.0 11/09/16 11:13 98.2 76 20 124/85 97 Nasal Cannula 3.0 98.2 I & O Intake and Output 11/10/16 07:00 Intake Total 1410 ml Balance 1410 ml Intake Oral 1360 ml IV Total 50 ml PHYSICAL EXAM Physical Exam lungs with few scattered wheezes heart RRR abd soft ext no edema ASSESSMENT/PLAN Assessment/Plan improving very slowly , she is very nervous about going home father diagnosed with flu, assured can do prophylactic Tamiflu, will keep another day to ensure improvement before D/C hope to discharge in AM Problems: FRANCES METZGER MD Nov 10, 2016 09:43
[2016-11-10 11:10] VITALS: BP 153/77
[2016-11-10] MEDS: CEFTRIAXONE SODIUM 1 GM in IV NORMAL SALINE 50ML 50 ML IV SCH ×2 (13:00→14:18)
[2016-11-10 14:58] VITALS: BP 147/91
[2016-11-10 19:59] VITALS: BP 124/70
[2016-11-10] MEDS: CEFPODOXIME PROXETIL 200 MG TABLET PO SCH (21:39)
[2016-11-10] MEDS: MONTELUKAST SODIUM 10 MG TABLET. PO SCH (21:39)
[2016-11-10 23:39] VITALS: BP 142/70
[2016-11-11] MEDS: HYDROCODONE/APAP 10/325 TABLET. PO PRN ×2 (02:18→08:16)
[2016-11-11] MEDS: GUAIFENESIN/CODEINE 100mg/10mg 5 ML LIQUID. PO PRN ×2 (02:18→08:17)
[2016-11-11] MEDS: ALBUTEROL SULFATE 2.5 MG/3 ML NEBU. NEB PRN (02:34)
[2016-11-11 03:59] VITALS: BP 170/87
[2016-11-11] MEDS: PANTOPRAZOLE 40 MG TABLET. PO SCH (06:40)
[2016-11-11] MEDS: IPRATRPIUM/ALBUTEROL 0.5/2.5MG 3 ML NEBU. NEB SCH (06:54)
[2016-11-11 07:15] VITALS: BP 163/97
[2016-11-11] MEDS: AZITHROMYCIN 250 MG TABLET PO SCH (08:15)
[2016-11-11] MEDS: LACTOBACILLUS ACIDOPH & BULGAR 1 TABLET. PO SCH (08:15)
[2016-11-11] MEDS: LISINOPRIL 20 MG TABLET PO SCH (08:16)
[2016-11-11] MEDS: LOSARTAN POTASSIUM 50 MG TABLET. PO SCH (08:16)
[2016-11-11] MEDS: GUAIFENESIN ER 600 MG TABLET.ER PO SCH (08:16)
[2016-11-11] MEDS: ALPRAZOLAM 1 MG TABLET PO PRN (08:17)
[2016-11-11] MEDS: CEFPODOXIME PROXETIL 200 MG TABLET PO SCH (08:17)
[2016-11-11] MEDS: PAROXETINE 20 MG TABLET. PO SCH (08:17)
[2016-11-11] MEDS ORDERED: PREDNISONE 20 MG TABLET PO SCH ×2 (09:00)
[2016-11-11] MEDS ORDERED: OSEL75CA PO (09:47)
[2016-11-11] MEDS ORDERED: CEFP200T PO (09:47)
[2016-11-11] MEDS ORDERED: HYDR-2680 PO (09:47)
[2016-11-11] MEDS ORDERED: PRED20TA PO (09:47)
--- NOTE | 2016-11-11 09:49 | PDOC3 ---
Discharge Summary* Date of Admission: Nov 05, 2016 Date of Discharge: Nov 11, 2016 Admitting Diagnosis Problems Medical Problems: (1) COPD exacerbation Status: Acute (2) Shortness of breath Status: Acute Final Diagnosis 1. Chronic obstructive pulmonary disease exacerbation. 2. Acute on chronic bronchitis. 3. Hypokalemia, replaced. 4. Hypertension, hypertensive cardiovascular disease. Problems Medical Problems: (1) COPD exacerbation Status: Acute (2) Shortness of breath Status: Acute CONSULTS pulmonary Procedures CXR Brief Hospital Course Ms. Vazquez is a 56 old [sex] who presented with [ ] Disposition/Orders: D/C to Home CONDITION AT DISCHARGE: Improved Diet: Cardiac Scheduled Amlodipine Besylate (Amlodipine Besylate) 2.5 MG PO DAILY Cefpodoxime Proxetil (Cefpodoxime Proxetil) 200 MG PO BID Esomeprazole Magnesium (Nexium Capsule) 2 CAP PO DAILY (Reported) Guaifenesin (Mucinex) 600 MG PO BID Ipratropium/Albuterol Sulfate (Duoneb 0.5-3(2.5) Mg/3 Ml) 3 ML NEB RTQID Lisinopril (Lisinopril) 1 TAB PO DAILY (Reported) Montelukast Sodium (Montelukast Sodium Tablet) 10 MG PO QHS Oseltamivir Phosphate (Tamiflu) 75 MG PO DAILY Paroxetine Hcl (Paroxetine Hcl) 20 MG PO DAILY Prednisone (Prednisone) 3 TAB PO DAILY Prednisone (Prednisone) 20 MG PO 3X3day then 2x3day t Promethazine HCl/Codeine (Prometh-Codein 6.25-10 mg/5 ml) 5 ML PO QID Roflumilast (Daliresp) 1 TAB PO DAILY (Reported) Umeclidinium Brm/Vilanterol Tr (Anoro Ellipta 62.5-25 Mcg Inh) 1 EACH IH DAILY ( Reported) Scheduled PRN Albuterol Sulfate (Ventolin Hfa Inhaler) 2 PUFF INH PRN Q4HRS PRN PRN SHORTNESS OF BREATH (Reported) Alprazolam (Xanax) 1 TAB PO QIDPRN PRN PRN ANXIETY (Reported) Hydrocodone/Acetaminophen (Lortab 10-325 mg Tablet) 1 TAB PO PRN Q4HRS PRN PRN PAIN Ondansetron Hcl (Zofran) 1 TAB PO Q8HRS PRN PRN NAUSEA FOLLOW UP APPOINTMENT: [place] 2 weeks Time Spent Total time spent with patient [] minutes for coordination of care, counseling, and education. FRANCES METZGER MD Nov 11, 2016 09:49
--- NOTE | 2016-11-11 09:49 | PDOC ---
SUBJECTIVE Subjective feels better OBJECTIVE Vital Signs Vital Signs Date Time Temp Pulse Resp B/P Pulse Ox O2 Delivery O2 Flow Rate FiO2 11/11/16 08:16 91 163/97 11/11/16 08:16 91 163/97 11/11/16 08:16 Nasal Cannula 2.0 11/11/16 08:00 Nasal Cannula 2.0 11/11/16 07:15 98.2 91 20 163/97 98 Nasal Cannula 2.0 98.2 11/11/16 06:54 Nasal Cannula 2.0 11/11/16 03:59 97.7 86 22 170/87 96 Nasal Cannula 2.0 97.7 11/11/16 03:20 18 Nasal Cannula 11/11/16 02:33 Nasal Cannula 2.0 11/11/16 02:18 20 Room Air 11/10/16 23:39 97.9 85 20 142/70 96 Nasal Cannula 2.0 97.9 11/10/16 20:00 Nasal Cannula 2.0 11/10/16 19:59 97.9 96 20 124/70 96 Nasal Cannula 2.0 97.9 11/10/16 19:28 95 Nasal Cannula 2.0 11/10/16 15:38 95 Nasal Cannula 2.0 11/10/16 14:58 98.2 92 20 147/91 97 Nasal Cannula 2.0 98.2 11/10/16 14:18 Nasal Cannula 2.0 11/10/16 11:32 95 Nasal Cannula 2.0 11/10/16 11:10 98.1 101 20 153/77 95 Nasal Cannula 2.0 98.1 11/10/16 10:04 Nasal Cannula 2.0 PHYSICAL EXAM Physical Exam better air movements ASSESSMENT/PLAN Assessment/Plan home today Problems: FRANCES METZGER MD Nov 11, 2016 09:49
[2016-11-11 11:00] VITALS: BP 145/88
== END 2016-11-11 11:41 | disposition home or self-care (01) | DRG 189 ==
LOC: ER 18:09 → 5 NORTH 22:12
PROVIDERS: ADMIT Internal Medicine; ATTEND Internal Medicine
DX: J96.00 Acute respiratory failure, unspecified whether with hypoxia or hypercapnia (principal); J44.1 Chronic obstructive pulmonary disease with (acute) exacerbation; J44.0 Chronic obstructive pulmonary disease with (acute) lower respiratory infection; J20.9 Acute bronchitis, unspecified; E87.6 Hypokalemia; I11.9 Hypertensive heart disease without heart failure; F32.9 Major depressive disorder, single episode, unspecified; F41.9 Anxiety disorder, unspecified; G62.9 Polyneuropathy, unspecified; I73.9 Peripheral vascular disease, unspecified; K21.9 Gastro-esophageal reflux disease without esophagitis; Z82.49 Family history of ischemic heart disease and other diseases of the circulatory system; Z85.41 Personal history of malignant neoplasm of cervix uteri; Z86.010 Personal history of colon polyps; Z88.8 Allergy status to other drugs, medicaments and biological substances; Z87.891 Personal history of nicotine dependence; Z90.710 Acquired absence of both cervix and uterus; Z98.1 Arthrodesis status
CPT/HCPCS: 36415; 71020; 80048; 82805; 84484; 85007; 85027; 87040; 87804; 93005; 94620; 94640; 94760; 96374; J0696; J2270; J2920; J7030; J7512; J7620; Q0144; 99285-25

== ENCOUNTER 2017-01-06 15:40 | Inpatient (IN) | payer MEDICAID, MEDICARE ==
[~2017-01-06] VITALS: Ht 154.9 cm; Wt 58.5 kg
[~2017-01-06 15:40] MED LIST changes: +OSEL75CA PO; -PARO20TA2 PO; +PARO20TA3 PO
[2017-01-06] MEDS ORDERED: ZOLPIDEM 5 MG TABLET. PO PRN (16:15)
[2017-01-06] MEDS ORDERED: ONDANSETRON PF 4 MG/2 ML VIAL. IV PRN (16:15)
[2017-01-06] MEDS ORDERED: 0.9 % SODIUM CHLORIDE 10 ML DISP.SYRIN. IV PRN (16:15)
[2017-01-06] MEDS ORDERED: MAG HYDROX/ALUMINUM HYD/SIMETH 30 ML ORAL.SUSP PO PRN (16:15)
[2017-01-06] MEDS ORDERED: PROCHLORPERAZINE 10 MG/2 ML VIAL. IV PRN (16:15)
[2017-01-06 16:30] VITALS: BP 158/80
--- NOTE | 2017-01-06 16:33 | PDOC ---
ASSESSMENT/PLAN Assessment/Plan [id number] H&P dictated Problems: FRANCES METZGER MD Jan 06, 2017 16:33
[2017-01-06] MEDS: ENOXAPARIN 40 MG/0.4 ML SYRINGE. SQ SCH (17:00)
[2017-01-06] MEDS: DOXYCYCLINE HYCLATE 100 MG TABLET PO SCH (17:00)
[2017-01-06] MEDS: PANTOPRAZOLE 40 MG TABLET.DR. PO SCH (17:00)
--- NOTE | 2017-01-06 17:17 | HP ---
ADMIT DATE: 01/06/2017 The patient is in room 648. HISTORY OF PRESENT ILLNESS: She is a 56-year-old lady, who was seen in the office yesterday due to exacerbation of COPD, increasing shortness of breath, and wheezing as well as cough. The week before, she had been seen in the office for diarrhea and abdominal discomfort. She is known to have frequent exacerbation of COPD and chronic bronchitis and was on antibiotic about 3 weeks prior to that. She was treated empirically with Flagyl, and her diarrhea apparently has improved at the time she was seen yesterday; however, in the meantime, she started coughing and started having increasing wheezing and shortness of breath. She does have a nebulizer at home and does have DuoNeb and she uses Symbicort usually for maintenance. She was given in the office a shot of Depo-Medrol 80 mg with dexamethasone 4 mg and was started on prednisone 40 mg daily, was given a cough medication. I tried to avoid giving her antibiotic given the fact that she has recently had a possible Clostridium difficile. Stool sample was not done. Apparently, the patient did not have a chance to take that to the lab. She comes back today, stating that her shortness of breath is not any better. She was feeling very tight and not able to take deep breath. Her blood pressure today was low. She was clammy and did not feel good. She was directed to be admitted to the hospital for further treatment of COPD exacerbation. PAST MEDICAL HISTORY: Significant for severe COPD. She is on chronic oxygen at home. She does have a history of hypertension, coronary artery disease - mild, peripheral vascular disease, headache, peripheral neuropathy, diverticulosis, history of colon polyps, gastroesophageal reflux disease, history of cervical cancer, status post hysterectomy, also a history of endometriosis. She does have osteoarthritis, a previous history of knee surgery, elbow surgery, and a spinal fusion. She denies depression or anxiety. She quit smoking about 6 years ago, but has a 40-plus- smoking history. SOCIAL HISTORY: As above, a smoker, quit smoking 5 or 6 years ago, but has a longstanding history of smoking, uses alcohol occasionally. Does not use other drugs. FAMILY HISTORY: Positive for hypertension. PHYSICAL EXAMINATION: GENERAL: She is alert and oriented, seems to be ____ breathe. VITAL SIGNS: Respiratory rate today is higher at 24 and her heart rate was about 98. HEENT: Tympanic membranes were dry. Pharynx is clear. She does not have sinus tenderness or active drainage from her nose. NECK: Supple. LUNGS: With decreased breath sounds bilaterally, very poor air movement. HEART: Mildly tachycardic. ABDOMEN: Soft, nontender. No organomegaly, no masses, no bruits, and no ascites. EXTREMITIES: No edema, clubbing, or cyanosis. IMPRESSION: 1. Chronic obstructive pulmonary disease exacerbation. The patient is admitted, started on bronchodilators, steroids, and antibiotics. We will check Clostridium difficile due to a history of recent diarrhea. 2. Diarrhea. Clostridium difficile was ordered and empirically started Flagyl along with antibiotic for her above chronic bronchitis. 3. Chronic bronchitis with exacerbation. 4. Hypotension, probably due to dehydration,. Started on IV fluid, and we will monitor. 6. Osteoarthritis. 7. Peripheral vascular disease. FRANCES METZGER MD DR: DENZEL/[place] JOB#: [id number] / [id number]
[2017-01-06 18:12] VITALS: BP 158/80
[2017-01-06 19:00] VITALS: BP 128/78
[2017-01-06] MEDS ORDERED: IPRATRPIUM/ALBUTEROL 0.5/2.5MG 3 ML NEBU. NEB SCH (20:00)
[2017-01-06] MEDS: METRONIDAZOLE 500 MG TABLET. PO SCH (22:02)
[2017-01-06] MEDS: MONTELUKAST SODIUM 10 MG TABLET. PO SCH (22:03)
[2017-01-06] MEDS: GUAIFENESIN ER 600 MG TABLET.ER PO SCH (22:03)
[2017-01-06] MEDS: SENNOSIDES/DOCUSATE 8.6/50MG TABLET. PO SCH (22:03)
[2017-01-06] MEDS: IPRATRPIUM/ALBUTEROL 0.5/2.5MG 3 ML NEBU. NEB SCH (22:09)
[2017-01-06] MEDS: methylPREDNISolone SOD SUCC PF 40 MG/ML VIAL. IV SCH (22:10)
[2017-01-06 22:44] VITALS: BP 124/76
[2017-01-06 23:26] VITALS: BP 133/87
[2017-01-07 02:46] VITALS: BP 121/73
--- NOTE | 2017-01-07 05:13 | ACF ---
Admit Criteria Forms Admit Criteria Forms Admit Criteria Forms COPD Clinical Indications for Admission to Inpatient Care (Place 'X' for any and all applicable criteria): Admission is indicated for ANY ONE of the following (1)(2)(3): [X]I. Acute exacerbation by high-risk comorbidity (e.g., pneumonia, dysrhythmia, heart failure, pleural effusion, pneumothorax) or severe underlying COPD (e.g., steroid dependent) [ ]II. Inpatient admission required rather than observation care (see Chronic Obstructive Pulmonary Disease: Observation Care) because of ANY ONE of the following: [ ]a) New or pre-existing signs or symptoms of COPD (eg, dyspnea or Tachypnea at rest or with minimal activity) that persist despite outpatient and observation care treatment [ ]b) New-onset hypoxemia (room air SaO2 less than 90%, PO2 less than 60 mm Hg (8.0 kPa)) that persists despite outpatient and observation care treatment [ ]c) Worsening of pre-existing hypoxemia (eg, new or increased requirement for supplemental oxygen to maintain oxygenation at baseline level) that persists despite outpatient and observation care treatment, with oxygen treatment needs performable only in acute inpatient setting [ ]d) Hypercarbia (PCO2 greater than 40 mm Hg (5.3 kPa))-induced respiratory acidosis (pH less than 7.35) that persists despite outpatient and observation care treatment [ ]e) Supplemental oxygen or respiratory treatments for over 24 hours that are performable only in acute inpatient setting [ ]f) Chest tube placement with active evacuation (e.g., suction, drainage) (5) [ ]g) Other condition, treatment or monitoring requiring inpatient admission [ ]III. Planned invasive surgical or diagnostic procedures requiring acute- care hospitalization [ ]IV. Acute respiratory failure (e.g., uncompensated hypercarbia, severe hypoxemia) [ ]V. Severe comorbid condition (e.g., severe steroid myopathy, acute vertebral fracture) that has acutely worsened pulmonary function [ ]. Confusion state, lethargy, obtundation, stupor or coma Extended stay beyond goal length of stay may be needed for (31)(32): [ ]a ) Respiratory Failure. [ ]b) Severe or persisting hypoxemia or hypercarbia [ ]c) Severe or persistent dyspnea [ ]d) Comorbidities (e.g. chronic heart failure, atrial fibrillation with rapid response, pneumonia) [ ]e) Malnutrition The original [employer] content created by [facility] has been revised. The portions of the content which have been revised are identified through the use of italic text or in bold, and [facility] has neither reviewed nor approved the modified material. All other unmodified content is copyright [facility]. Please see references footnoted in the original [facility] edition 2016 ANDREI OG Jan 07, 2017 05:13
[2017-01-07 05:31] LABS: BASO % 0 % (0-3); EOS % 0 % (0-3); HEMATOCRIT 33.5 % (36.0-47.0); HEMOGLOBIN 11.3 g/dL (12.0-15.5); LYMPH # 0.2 x10^3/uL (1.0-4.8); LYMPH % 7 % (24-48); MEAN CORPUSCULAR HEMOGLOBIN 30 pg (25-35); MEAN CORPUSCULAR HGB CONC 34 g/dL (31-37); MEAN CORPUSCULAR VOLUME 89 fL (79-100); MONO % 2 % (0-9); NEUT % 90 % (31-73); PLATELET COUNT 366 x10^3/uL (140-400); RED BLOOD COUNT 3.77 x10^6/uL (3.50-5.40); RED CELL DISTRIBUTION WIDTH 14.4 % (11.5-14.5); WHITE BLOOD COUNT 3.2 x10^3/uL (4.0-11.0)
[2017-01-07 05:47] LABS: CALCIUM 8.3 mg/dL (8.5-10.1); CREATININE 0.6 mg/dL (0.6-1.0); GFR 102.7; POTASSIUM 3.4 mmol/L (3.5-5.1)
[2017-01-07] MEDS: METRONIDAZOLE 500 MG TABLET. PO SCH ×3 (06:30→21:24)
[2017-01-07] MEDS: methylPREDNISolone SOD SUCC PF 40 MG/ML VIAL. IV SCH ×2 (06:30→17:36)
[2017-01-07 07:05] VITALS: BP 164/94
[2017-01-07] MEDS: DOXYCYCLINE HYCLATE 100 MG TABLET PO SCH ×2 (07:51→21:28)
[2017-01-07] MEDS: PAROXETINE 20 MG TABLET. PO SCH (07:52)
[2017-01-07] MEDS: SENNOSIDES/DOCUSATE 8.6/50MG TABLET. PO SCH ×2 (07:52→08:02)
[2017-01-07] MEDS: GUAIFENESIN ER 600 MG TABLET.ER PO SCH ×2 (07:52→21:24)
[2017-01-07] MEDS: PANTOPRAZOLE 40 MG TABLET.DR. PO SCH (07:52)
[2017-01-07] MEDS: HYDROCODONE/APAP 10/325 TABLET. PO PRN (07:54)
[2017-01-07] MEDS: ALPRAZOLAM 0.25 MG TABLET. PO PRN ×2 (08:00→14:55)
[2017-01-07] MEDS: IPRATRPIUM/ALBUTEROL 0.5/2.5MG 3 ML NEBU. NEB SCH ×4 (08:10→20:07)
--- NOTE | 2017-01-07 09:04 | RAD ---
CHEST PA LATERAL Clinical Indication: SOB Comparison: January 05, 2017. Technique: Frontal and lateral views of the chest are obtained. Findings: The lungs are hyperinflated consistent with emphysematous changes. No focal consolidation, pleural effusion or pneumothorax is seen. Cardiomediastinal silhouette remains within normal limits of size. Visualized osseous structures and overlying soft tissues demonstrate no acute interval change. IMPRESSION: No focal consolidation or acute interval change.
--- NOTE | 2017-01-07 10:12 | PDOC ---
Provider Note Provider Note feels ok, no dyspnea, cough/sputum- afeb, c diff pending on flagyl- can dc iv fluid, lower steroids as she is not wheezing CHEYANNE ESTRADA MD Jan 07, 2017 10:12
[2017-01-07 10:44] VITALS: BP 130/77
[2017-01-07] MEDS: LISINOPRIL 20 MG TABLET PO SCH (11:15)
[2017-01-07 12:28] LABS: PLT ESTIMATE ADEQUATE (ADEQUATE)
[2017-01-07 14:50] VITALS: BP 134/77
[2017-01-07] MEDS: HYDROCODONE/APAP 5/325MG TABLET. PO PRN ×2 (14:55→19:26)
[2017-01-07] MEDS: ENOXAPARIN 40 MG/0.4 ML SYRINGE. SQ SCH (17:37)
[2017-01-07 19:55] VITALS: BP 122/70
[2017-01-07] MEDS: MONTELUKAST SODIUM 10 MG TABLET. PO SCH (21:24)
[2017-01-07 23:55] VITALS: BP 120/72
[2017-01-08] MEDS: HYDROCODONE/APAP 10/325 TABLET. PO PRN ×4 (00:12→21:13)
[2017-01-08] MEDS: ALPRAZOLAM 0.25 MG TABLET. PO PRN ×3 (00:12→17:22)
[2017-01-08] MEDS: METRONIDAZOLE 500 MG TABLET. PO SCH (06:16)
[2017-01-08 07:36] VITALS: BP 139/89
--- NOTE | 2017-01-08 07:39 | PDOC ---
Provider Note Provider Note feels better, no more diarrhea-, no sputum- c diff neg, mild wheezes, no dyspnea - will dc flagyl, rest same, likely home soon CHEYANNE ESTRADA MD Jan 08, 2017 07:39
[2017-01-08] MEDS: IPRATRPIUM/ALBUTEROL 0.5/2.5MG 3 ML NEBU. NEB SCH ×4 (08:52→21:19)
[2017-01-08] MEDS: PAROXETINE 20 MG TABLET. PO SCH (09:35)
[2017-01-08] MEDS: DOXYCYCLINE HYCLATE 100 MG TABLET PO SCH ×2 (09:36→21:13)
[2017-01-08] MEDS: PANTOPRAZOLE 40 MG TABLET.DR. PO SCH (09:37)
[2017-01-08] MEDS: GUAIFENESIN ER 600 MG TABLET.ER PO SCH ×2 (09:37→21:13)
[2017-01-08] MEDS: LISINOPRIL 20 MG TABLET PO SCH (09:38)
[2017-01-08] MEDS: methylPREDNISolone SOD SUCC PF 40 MG/ML VIAL. IV SCH ×2 (09:40→16:46)
[2017-01-08 11:04] VITALS: BP 140/84
[2017-01-08 15:59] VITALS: BP 148/87
[2017-01-08] MEDS: PROMETH/CODEINE 6.25/10MG 5 ML SYRUP. PO PRN (16:44)
[2017-01-08] MEDS: ENOXAPARIN 40 MG/0.4 ML SYRINGE. SQ SCH (16:45)
[2017-01-08 19:36] VITALS: BP 158/93
[2017-01-08] MEDS: MONTELUKAST SODIUM 10 MG TABLET. PO SCH (21:13)
[2017-01-08 23:06] VITALS: BP 149/90
[2017-01-09] MEDS: IPRATRPIUM/ALBUTEROL 0.5/2.5MG 3 ML NEBU. NEB SCH ×3 (07:31→15:29)
[2017-01-09 07:36] VITALS: BP 158/93
[2017-01-09] MEDS: DOXYCYCLINE HYCLATE 100 MG TABLET PO SCH (09:14)
[2017-01-09] MEDS: PAROXETINE 20 MG TABLET. PO SCH (09:14)
[2017-01-09] MEDS: GUAIFENESIN ER 600 MG TABLET.ER PO SCH (09:14)
[2017-01-09] MEDS: PANTOPRAZOLE 40 MG TABLET.DR. PO SCH (09:14)
[2017-01-09] MEDS: methylPREDNISolone SOD SUCC PF 40 MG/ML VIAL. IV SCH (09:14)
[2017-01-09] MEDS: LISINOPRIL 20 MG TABLET PO SCH (09:15)
[2017-01-09] MEDS: ALPRAZOLAM 0.25 MG TABLET. PO PRN ×2 (09:15)
[2017-01-09] MEDS: HYDROCODONE/APAP 10/325 TABLET. PO PRN ×2 (09:15→14:39)
[2017-01-09] MEDS: PROMETH/CODEINE 6.25/10MG 5 ML SYRUP. PO PRN ×2 (09:16)
[2017-01-09 10:36] VITALS: BP 152/98
--- NOTE | 2017-01-09 10:39 | PDOC ---
SUBJECTIVE Subjective Feeling much better today and breathing much better OBJECTIVE Vital Signs Vital Signs Date Time Temp Pulse Resp B/P Pulse Ox O2 Delivery O2 Flow Rate FiO2 01/09/17 09:15 76 158/93 01/09/17 09:15 20 Room Air 01/09/17 07:36 97.3 76 20 158/93 98 Room Air 97.3 01/09/17 07:32 99 Nasal Cannula 2.0 01/09/17 03:00 Nasal Cannula 2.0 01/08/17 23:06 98.4 84 20 149/90 97 Room Air 98.4 01/08/17 22:10 19 Nasal Cannula 2.0 01/08/17 21:20 99 Nasal Cannula 3.0 01/08/17 21:13 16 Nasal Cannula 2.0 01/08/17 20:00 Nasal Cannula 2.0 01/08/17 19:36 97.8 91 20 158/93 98 Room Air 97.8 01/08/17 18:39 100 01/08/17 17:22 100 Nasal Cannula 3.0 01/08/17 17:04 100 Nasal Cannula 3.0 01/08/17 15:59 98.1 82 20 148/87 98 Room Air 98.1 01/08/17 11:27 100 Nasal Cannula 3.0 01/08/17 11:04 97.9 81 20 140/84 97 Room Air 97.9 I & O Intake and Output 01/09/17 07:00 Intake Total 1690 ml Output Total 1400 ml Balance 290 ml Intake Oral 1690 ml Output Urine Total 1400 ml PHYSICAL EXAM Physical Exam Lungs fairly clear Heart regular rate and rhythm Abdomen soft and nontender Extremities no edema ASSESSMENT/PLAN Assessment/Plan Her COPD is much better we will switch to by mouth steroids and taper as outpatient, home today Problems: FRANCES METZGER MD Jan 09, 2017 10:39
[2017-01-09 15:27] VITALS: BP 149/96
--- NOTE | 2017-01-09 19:14 | PDOC3 ---
Discharge Summary* Date of Admission: Jan 06, 2017 Date of Discharge: Jan 09, 2017 Admitting Diagnosis Problems Medical Problems: (1) COPD exacerbation Status: Acute Final Diagnosis IMPRESSION: 1. Chronic obstructive pulmonary disease exacerbation. 2. Diarrhea. resolved and C.diff neg 3. Chronic bronchitis with exacerbation. 4. Hypotension, probably due to dehydration,. resolved 6. Osteoarthritis. 7. Peripheral vascular disease. Problems Medical Problems: (1) COPD exacerbation Status: Acute Procedures CXR Brief Hospital Course Ms. Vazquez is a 56 old [sex] who presented with [ ] Disposition/Orders: D/C to Home CONDITION AT DISCHARGE: Improved Diet: Cardiac, Consistent Carbohydrate Scheduled Amlodipine Besylate (Amlodipine Besylate) 2.5 MG PO DAILY Esomeprazole Magnesium (Nexium Capsule) 2 CAP PO DAILY (Reported) Guaifenesin (Mucinex) 600 MG PO BID Ipratropium/Albuterol Sulfate (Duoneb 0.5-3(2.5) Mg/3 Ml) 3 ML NEB RTQID Lisinopril (Lisinopril) 1 TAB PO DAILY (Reported) Montelukast Sodium (Montelukast Sodium Tablet) 10 MG PO QHS Paroxetine Hcl (Paroxetine Hcl) 20 MG PO DAILY Prednisone (Prednisone) 20 MG PO 3X3day then 2x3day t Promethazine HCl/Codeine (Prometh-Codein 6.25-10 mg/5 ml) 5 ML PO QID Roflumilast (Daliresp) 1 TAB PO DAILY (Reported) Umeclidinium Brm/Vilanterol Tr (Anoro Ellipta 62.5-25 Mcg Inh) 1 EACH IH DAILY ( Reported) Scheduled PRN Albuterol Sulfate (Ventolin Hfa Inhaler) 2 PUFF INH PRN Q4HRS PRN PRN SHORTNESS OF BREATH (Reported) Alprazolam (Xanax) 1 TAB PO QIDPRN PRN PRN ANXIETY (Reported) Hydrocodone/Acetaminophen (Lortab 10-325 mg Tablet) 1 TAB PO PRN Q4HRS PRN PRN PAIN Ondansetron Hcl (Zofran) 1 TAB PO Q8HRS PRN PRN NAUSEA Discontinued Medications Cefpodoxime Proxetil (Cefpodoxime Proxetil) 200 MG PO BID Oseltamivir Phosphate (Tamiflu) 75 MG PO DAILY Prednisone (Prednisone) 3 TAB PO DAILY FOLLOW UP APPOINTMENT: Dr Metzger 1 week Time Spent Total time spent with patient [] minutes for coordination of care, counseling, and education. FRANCES METZGER MD Jan 09, 2017 19:14
== END 2017-01-09 15:30 | disposition home or self-care (01) | DRG 189 ==
LOC: 6 SOUTH 15:40
PROVIDERS: ADMIT Internal Medicine; ATTEND Internal Medicine
DX: J96.20 Acute and chronic respiratory failure, unspecified whether with hypoxia or hypercapnia (principal); J44.1 Chronic obstructive pulmonary disease with (acute) exacerbation; J44.0 Chronic obstructive pulmonary disease with (acute) lower respiratory infection; E86.0 Dehydration; I10 Essential (primary) hypertension; I25.10 Atherosclerotic heart disease of native coronary artery without angina pectoris; K21.9 Gastro-esophageal reflux disease without esophagitis; I73.9 Peripheral vascular disease, unspecified; G62.9 Polyneuropathy, unspecified; I95.9 Hypotension, unspecified; R19.7 Diarrhea, unspecified; M19.90 Unspecified osteoarthritis, unspecified site; J20.9 Acute bronchitis, unspecified; Z82.49 Family history of ischemic heart disease and other diseases of the circulatory system; Z85.41 Personal history of malignant neoplasm of cervix uteri; Z86.010 Personal history of colon polyps; Z87.891 Personal history of nicotine dependence; Z90.710 Acquired absence of both cervix and uterus; Z98.1 Arthrodesis status; Z99.81 Dependence on supplemental oxygen; Z72.89 Other problems related to lifestyle
CPT/HCPCS: 36415; 71020; 80048; 85007; 85027; 87324; 94250; 94640; 94760; J1650; J2920; J7620

== ENCOUNTER 2017-04-15 12:21 | Inpatient (IN) | payer MEDICARE ==
[~2017-04-15] VITALS: Ht 180.3 cm; Wt 59.0 kg
[~2017-04-15 12:21] MED LIST changes: -AZIT1PAC7 PO; +AZIT1PAC9 PO; -GUAI600T38 PO; +GUAI600T47 PO; -HYDR-2666 PO; +HYDR-2758 PO; -LEVO500T38 PO; +LEVO500T59 PO; -ROFL500T PO; +ROFL500T7 PO; -SUCR1TAB29 PO; +SUCR1TAB35 PO
[2017-04-15] MEDS ORDERED: IPRATRPIUM/ALBUTEROL 0.5/2.5MG 3 ML NEBU. NEB ONE (12:45)
[2017-04-15] MEDS ORDERED: methylPREDNISolone SOD SUCC PF 125 MG/2 ML VIAL. IV ONE (13:00)
[2017-04-15 13:03] LABS: BASO # 0.1 x10^3/uL (0.0-0.2); BASO % 1 % (0-3); EOS % 1 % (0-3); HEMATOCRIT 41.2 % (36.0-47.0); HEMOGLOBIN 13.7 g/dL (12.0-15.5); LYMPH # 2.1 x10^3/uL (1.0-4.8); LYMPH % 29 % (24-48); MEAN CORPUSCULAR HEMOGLOBIN 30 pg (25-35); MEAN CORPUSCULAR HGB CONC 33 g/dL (31-37); MEAN CORPUSCULAR VOLUME 90 fL (79-100); MONO % 6 % (0-9); NEUT % 63 % (31-73); PLATELET COUNT 507 x10^3/uL (140-400); RED BLOOD COUNT 4.57 x10^6/uL (3.50-5.40); RED CELL DISTRIBUTION WIDTH 12.8 % (11.5-14.5); WHITE BLOOD COUNT 7.1 x10^3/uL (4.0-11.0)
--- NOTE | 2017-04-15 13:10 | EKG ---
[facility] [address] [place] [address] Test Date: 2017-04-15 Test Time: 12:32:17 Pat Name: CHUCKIE LOCO Department: Room: Gender: F [employer] Supervisor: : 1960 Requested By: JAYLA HERNADEZ Order Number: [id number] Reading MD: Kris Doyle Measurements Intervals [place] Rate: 102 P: 90 DE: 146 QRS: 69 QRSD: 74 T: 66 QT: 326 QTc: 429 Interpretive Statements SINUS TACHYCARDIA Electronically Signed On 04-20-2017 14:37:48 CDT by Kris Doyle
--- NOTE | 2017-04-15 13:11 | RAD ---
Indication shortness of air. A single view of the chest was obtained and is compared to an exam 02/14/2017. Chronic changes are noted. Large blebs and/or bulla occupy the upper lobes similar to the previous exam. There is no congestive heart failure. Heart size is normal. There is no focal infiltrate. Significant pleural fluid is not seen. There is no pneumothorax. IMPRESSION: Chronic changes. Large blebs or bulla occupy the upper lobes. An acute finding in the chest is not seen
--- NOTE | 2017-04-15 13:14 | ED.ADGEN ---
Past Medical History Past Medical History: Anxiety, COPD, Hypertension Additional Past Medical Histor: CATARACTS Past Surgical History: Hysterectomy, Tonsillectomy Additional Past Surgical Histo: SPINAL FUSION, LYPOMA REMOVED, R KNEE, L ELBOW NERVES Alcohol Use: None Drug Use: None Adult General Chief Complaint Chief Complaint: SHORTNESS OF BREATH HPI HPI Patient is a 56 year old woman, history of COPD, hypertension, uses 2 L nasal cannula at baseline who presents to the emergency department with a complaint of worsening shortness of breath and right-sided chest pain and heaviness that began last night. Patient states that she is experiencing Worsening shortness of breath since last night, denies any triggers, denies any nausea or vomiting, denies any weakness, numbness, tingling, recent travel or surgery, swelling extremities. Patient states symptoms feel similar to previous episodes of COPD exacerbation. She states she did use her albuterol inhalers at home without relief. Denies any current antibiotic use or recent steroid use. Patient is in moderate to severe respiratory distress, able to speak more than one to 2 words at a time, complaining of fatigue. Oxygen saturation on 3 L is in the upper 90s. Respiratory rate is in the mid 20s to low 30s, heart rate in the 1 teens, sinus tachycardia on the monitor. Review of Systems Review of Systems Constitutional: Denies fever or chills. [] Eyes: Denies change in visual acuity. [] HENT: Denies nasal congestion or sore throat. [] Respiratory: Denies cough, complaining of shortness of breath worsening today. Cardiovascular: Right-sided chest pain and chest heaviness. GI: Denies abdominal pain, nausea, vomiting, bloody stools or diarrhea. [] : Denies dysuria. [] Musculoskeletal: Denies back pain or joint pain. [] Integument: Denies rash. [] Neurologic: Denies headache, focal weakness or sensory changes. [] Endocrine: Denies polyuria or polydipsia. [] Lymphatic: Denies swollen glands. [] Psychiatric: Denies depression or anxiety. [] Current Medications Current Medications Current Medications Medications (Trade) Dose Ordered Sig/Marian Start Time Stop Time Status Last Admin Dose Admin Acetaminophen (Tylenol) 650 mg PRN Q4HRS PRN 04/15/17 14:30 04/16/17 14:29 Albuterol/ Ipratropium (Duoneb) 3 ml RTQID 04/15/17 16:00 04/16/17 15:59 Fentanyl Citrate (Fentanyl 2ml Vial) 50 mcg PRN Q2HR PRN 04/15/17 14:30 04/16/17 14:29 Lorazepam (Ativan) 0.5 mg 1X ONCE 04/15/17 14:30 04/15/17 14:32 DC 04/15/17 14:03 0.5 MG Methylprednisolone Sodium Succinate (SOLU-Medrol 40MG VIAL) 40 mg Q8HRS 04/15/17 22:00 Methylprednisolone Sodium Succinate (SOLU-Medrol 125MG VIAL) 125 mg 1X ONCE 04/15/17 13:00 04/15/17 13:01 DC 04/15/17 13:18 125 MG Nitroglycerin (Nitrostat) 0.4 mg PRN Q5MIN PRN 04/15/17 14:30 04/16/17 14:29 Ondansetron HCl (Zofran) 4 mg PRN Q8HRS PRN 04/15/17 14:30 04/16/17 14:29 Allergies Allergies Allergies Coded Allergies Type Severity Reaction Last Updated Verified amlodipine Allergy Intermediate Swelling 11/05/16 Yes pregabalin Allergy Intermediate both legs from knee down to feet swelled up 09/09 Yes Physical Exam Physical Exam Constitutional: Well developed, well nourished, moderate respiratory distress, ill in appearance. [] HENT: Normocephalic, atraumatic, bilateral external ears normal, oropharynx moist, no oral exudates, nose normal. [] Eyes: PERRLA, EOMI, conjunctiva normal, no discharge. [] Neck: Normal range of motion, no tenderness, supple, no stridor. [] Cardiovascular:Heart tachycardic, S1, S2, no rubs or gallops. Soft heart sounds. Lungs & Thorax: Severely limited breath sounds bilaterally, no rhonchi or rales , very poor aeration and air movement. Patient unable to speak more than one to 2 words at a time due to dyspnea. [] Abdomen: Bowel sounds normal, soft, no tenderness, no rebound, no rigidity, no guarding, no masses, no pulsatile masses. [] Skin: Warm, dry, no erythema, no rash. [] Back: No tenderness, no CVA tenderness. [] Extremities: No tenderness, no cyanosis, no clubbing, ROM intact, no edema. Negative Homans sign. [] Neurologic: Alert and oriented X 3, normal motor function, normal sensory function, no focal deficits noted. [] Psychologic: Affect normal, judgement normal, mood normal. [] Current Patient Data Vital Signs Vital Signs Date Time Temp Pulse Resp B/P (MAP) Pulse Ox O2 Delivery O2 Flow Rate FiO2 04/15/17 13:26 98 BiPAP/CPAP 04/15/17 12:49 3.0 04/15/17 12:25 98.3 110 22 129/76 (93) 98.3 Lab Values Laboratory Tests Test 04/15/17 12:37 04/15/17 12:50 04/15/17 13:15 White Blood Count 7.1 x10^3/uL (4.0-11.0) Red Blood Count 4.57 x10^6/uL (3.50-5.40) Hemoglobin 13.7 g/dL (12.0-15.5) Hematocrit 41.2 % (36.0-47.0) Mean Corpuscular Volume 90 fL (79-100) Mean Corpuscular Hemoglobin 30 pg (25-35) Mean Corpuscular Hemoglobin Concent 33 g/dL (31-37) Red Cell Distribution Width 12.8 % (11.5-14.5) Platelet Count 507 x10^3/uL (140-400) H Neutrophils (%) (Auto) 63 % (31-73) Lymphocytes (%) (Auto) 29 % (24-48) Monocytes (%) (Auto) 6 % (0-9) Eosinophils (%) (Auto) 1 % (0-3) Basophils (%) (Auto) 1 % (0-3) Neutrophils # (Auto) 4.5 x10^3uL (1.8-7.7) Lymphocytes # (Auto) 2.1 x10^3/uL (1.0-4.8) Monocytes # (Auto) 0.4 x10^3/uL (0.0-1.1) Eosinophils # (Auto) 0.1 x10^3/uL (0.0-0.7) Basophils # (Auto) 0.1 x10^3/uL (0.0-0.2) Sodium Level 141 mmol/L (136-145) Potassium Level 3.9 mmol/L (3.5-5.1) Chloride Level 101 mmol/L (98-107) Carbon Dioxide Level 31 mmol/L (21-32) Anion Gap 9 (6-14) Blood Urea Nitrogen 25 mg/dL (7-20) H Creatinine 0.7 mg/dL (0.6-1.0) Estimated GFR (Cockcroft-Gault) 85.9 BUN/Creatinine Ratio 36 (6-20) H Glucose Level 127 mg/dL (70-99) H Calcium Level 9.7 mg/dL (8.5-10.1) Total Bilirubin 0.2 mg/dL (0.2-1.0) Aspartate Amino Transferase (AST) 14 U/L (15-37) L Alanine Aminotransferase (ALT) 24 U/L (14-59) Alkaline Phosphatase 92 U/L (46-116) Troponin I Quantitative < 0.017 ng/mL (0.000-0.055) EN-Jfz-[id number]-Type Natriuretic Peptide 59 pg/mL (0-124) Total Protein 7.3 g/dL (6.4-8.2) Albumin 3.6 g/dL (3.4-5.0) Albumin/Globulin Ratio 1.0 (1.0-1.7) Lactic Acid Level 1.1 mmol/L (0.4-2.0) O2 Saturation 97 % (92-99) Arterial Blood pH 7.45 (7.35-7.45) Arterial Blood pCO2 at Patient Temp 42 mmHg (35-46) Arterial Blood pO2 at Patient Temp 102 mmHg (75-108) Arterial Blood HCO3 29 mmol/L (21-28) H Arterial Blood Base Excess 5 mmol/L (-3-3) H Oxyhemoglobin 96.3 % Methemoglobin 0.5 % (0.0-1.9) Carbon Monoxide, Quantitative 0.3 % (0.0-1.9) FiO2 3 lpm nc Laboratory Tests 04/15/17 12:37 Laboratory Tests 04/15/17 12:37 EKG EKG EC: Sinus tachycardia, heart rate 102 beats/minute, upright axis, QTC of 429, KS 146, QR 74, contour normality is noted in the anterior septal leads, with mild baseline artifact noted, no ST elevations or depressions identified. Abnormal ECG, does not meet STEMI criteria. As interpreted by me. [] Radiology/Procedures Radiology/Procedures [] Impressions: [facility] [address] [place] [address] IMAGING REPORT Signed PATIENT: CHUCKIE LOCO ACCOUNT: [id number] : 1960 LOCATION: ER AGE: 56 SEX: F EXAM STATUS: PRE ER ORD. PHYSICIAN: JAYLA HERNADEZ DO REASON: SOB PROCEDURE: PORTABLE CHEST 1V Indication shortness of air. A single view of the chest was obtained and is compared to an exam 02/14/2017. Chronic changes are noted. Large blebs and/or bulla occupy the upper lobes similar to the previous exam. There is no congestive heart failure. Heart size is normal. There is no focal infiltrate. Significant pleural fluid is not seen. There is no pneumothorax. IMPRESSION: Chronic changes. Large blebs or bulla occupy the upper lobes. An acute finding in the chest is not seen DICTATED and SIGNED BY: FELA COLEMAN MD DATE: 04/15/17 1307 CC: JAYLA HERNADEZ DO; FRANCES METZGER MD ~ Course & Med Decision Making Course & Med Decision Making Pertinent Labs and Imaging studies reviewed. (See chart for details) Patient with significant respiratory distress upon arrival to the emergency department, was issue on BiPAP in the emergency department, initially experienced some anxiety with BiPAP, although her work of breathing and respiratory function significantly improved, oxygen saturation remained in the upper 90s. Patient received fentanyl for pain, and also a low-dose of angiolytic with Ativan, with significant improvement of her compliance. She is now resting comfortably, tolerating BiPAP. Initial ABG reveals a pH of 7.45, CO2 of 42, O2 of 101, and a bicarbonate 29. X-ray reveals blood but no evidence of acute abnormalities, initial troponin is negative and the ED. Patient received steroids and nebulization treatment in the ED. No indications for other interventions, or antibiotics at this time. I did discuss findings as above with Dr. Metzger, the patient's primary care provider, patient was accepted to her service as a full admission to the medical telemetry floor, as a COPD exacerbation, with consultation placed for her principal data architect, Dr. Victor. Bridge orders entered per discussion. Akash Disclaimer Dragon Disclaimer This electronic medical record was generated, in whole or in part, using a voice recognition dictation system. Departure Impression: Primary Impression: Acute on chronic respiratory failure Additional Impression: COPD (chronic obstructive pulmonary disease) Disposition: 09 ADMITTED INPATIENT Admitting Physician: Frances Metzger Condition: IMPROVED Problem Qualifiers JAYLA HERNADEZ DO Apr 15, 2017 13:14
[2017-04-15 13:19] LABS: CALCIUM 9.7 mg/dL (8.5-10.1); CREATININE 0.7 mg/dL (0.6-1.0); GFR 85.9; POTASSIUM 3.9 mmol/L (3.5-5.1)
[2017-04-15 13:23] LABS: BASE EXCESS COOX 5 mmol/L (-3-3); CARBON MONOXIDE 0.3 % (0.0-1.9); HCO3 COOX 29 mmol/L (21-28); METHEMOGLOBIN 0.5 % (0.0-1.9); OXYHEMOGLOBIN 96.3 %; PCO2 COOX 42 mmHg (35-46); PH COOX 7.45 (7.35-7.45); PO2 COOX 102 mmHg (75-108); SAT O2 COOX 97 % (92-99); TOTAL HEMOGLOBIN 14.4 g/dL
[2017-04-15 13:26] LABS: ALBUMIN 3.6 g/dL (3.4-5.0); TOTAL BILIRUBIN 0.2 mg/dL (0.2-1.0); TOTAL PROTEIN 7.3 g/dL (6.4-8.2)
[2017-04-15] MEDS ORDERED: fentaNYL PF VIAL 100 MCG/2 ML VIAL IV PRN (13:45)
[2017-04-15] MEDS ORDERED: NITROGLYCERIN SUBLINGUAL 0.4 MG BOTTLE OF 25. SL PRN (14:30)
[2017-04-15] MEDS ORDERED: ONDANSETRON PF 4 MG/2 ML VIAL. IV PRN (14:30)
[2017-04-15] MEDS ORDERED: ACETAMINOPHEN 325 MG TABLET. PO PRN (14:30)
[2017-04-15] MEDS: IPRATRPIUM/ALBUTEROL 0.5/2.5MG 3 ML NEBU. NEB SCH ×2 (15:23→19:31)
[2017-04-15 15:57] VITALS: BP 120/85
[2017-04-15] MEDS: fentaNYL PF VIAL 100 MCG/2 ML VIAL IV PRN (16:48)
[2017-04-15] MEDS ORDERED: LACT1CAP6 PO (16:57)
[2017-04-15] MEDS ORDERED: CETI10CA PO (16:57)
[2017-04-15] MEDS ORDERED: LOSA1TAB18 PO (16:58)
[2017-04-15 19:00] VITALS: BP 115/73
[2017-04-15] MEDS ORDERED: ONDANSETRON ODT 4 MG TAB.RAPDIS. PO PRN (19:15)
[2017-04-15] MEDS: PROMETH/CODEINE 6.25/10MG 5 ML SYRUP. PO PRN (19:51)
[2017-04-15] MEDS: ALPRAZolam 1 MG TABLET PO PRN (19:51)
[2017-04-15] MEDS: MONTELUKAST SODIUM 10 MG TABLET. PO SCH (19:51)
[2017-04-15] MEDS: HYDROcodone/APAP 10/325 1 TAB TABLET PO PRN (19:51)
[2017-04-15] MEDS: methylPREDNISolone SOD SUCC PF 40 MG/ML VIAL. IV SCH (22:00)
[2017-04-15 22:50] VITALS: BP 116/77
[2017-04-16] MEDS: PROMETH/CODEINE 6.25/10MG 5 ML SYRUP. PO PRN ×4 (01:48→20:23)
[2017-04-16] MEDS: ALPRAZolam 1 MG TABLET PO PRN ×4 (01:49→20:23)
[2017-04-16] MEDS: HYDROcodone/APAP 10/325 1 TAB TABLET PO PRN ×4 (01:49→22:24)
--- NOTE | 2017-04-16 03:35 | ACF ---
Admit Criteria Forms Admit Criteria Forms Admit Criteria Forms RESPIRATORY FAILURE GRG Clinical Indications for Admission to Inpatient Care (Place 'X' for any and all applicable criteria): Hospital admission is needed for appropriate care of the patient because of acute respiratory failure or insufficiency as indicated by ANY ONE of the following(1)(2)(3)(4)(5)(6)(7)(8): [X ]I. Mechanical ventilation needed (acute invasive or noninvasive) [ ]II. Severe ventilation deficit as indicated by ANY ONE of the following (9) [ ]a) Respiratory acidosis (pH less than 7.32 and partial pressure of carbon dioxide greater than 40 mm Hg (5.3 kPa)) [ ]b) Partial pressure of carbon dioxide greater than 44 mm Hg (5.9 kPa ) (new) [ ]c) Airflow measurements less than 25% of predicted (eg, peak expiratory flow rate less than 100 L/minute) [ ]d) Forced vital capacity less than 15 mL/kg of ideal body weight, or 50% decrease in vital capacity from baseline [ ]III. Noncardiac pulmonary edema not resolving with rapid emergency treatment (8) [ ]IV. Severe respiratory distress as indicated by ANY ONE of the following: [ ]a) Severe tachypnea (respiratory rate greater than 30, greater than 45 for 6-month-old, greater than 60 for ) [ ]b) Severe hypoxemia (partial pressure of oxygen less than 50 mm Hg ( 6.7 kPa) on greater than 50% oxygen or partial pressure of oxygen to FIO2 ratio less than 200) [ ]c) Mental status deterioration from respiratory disease [ ]V. Airway obstruction or inadequate protection [A](10)(11) The original [employer] content created by [employer] has been revised. The portions of the content which have been revised are identified through the use of italic text or in bold, and [employer] has neither reviewed nor approved the modified material. All other unmodified content is copyright [employer]. Please see references footnoted in the original [employer] edition 2016 CHRISTIAN ARMENTA Apr 16, 2017 03:35
[2017-04-16] MEDS: methylPREDNISolone SOD SUCC PF 40 MG/ML VIAL. IV SCH ×3 (05:57→21:30)
[2017-04-16 07:00] VITALS: BP 118/75
[2017-04-16 07:11] LABS: BASO % 0 % (0-3); EOS % 0 % (0-3); HEMATOCRIT 36.2 % (36.0-47.0); HEMOGLOBIN 12.4 g/dL (12.0-15.5); LYMPH # 0.8 x10^3/uL (1.0-4.8); LYMPH % 12 % (24-48); MEAN CORPUSCULAR HEMOGLOBIN 31 pg (25-35); MEAN CORPUSCULAR HGB CONC 34 g/dL (31-37); MEAN CORPUSCULAR VOLUME 90 fL (79-100); MONO % 4 % (0-9); NEUT % 85 % (31-73); PLATELET COUNT 444 x10^3/uL (140-400); RED BLOOD COUNT 4.01 x10^6/uL (3.50-5.40); RED CELL DISTRIBUTION WIDTH 12.6 % (11.5-14.5)
[2017-04-16 07:15] LABS: CALCIUM 9.1 mg/dL (8.5-10.1); GFR 56.9; POTASSIUM 4.2 mmol/L (3.5-5.1)
[2017-04-16] MEDS: IPRATRPIUM/ALBUTEROL 0.5/2.5MG 3 ML NEBU. NEB SCH ×3 (07:43→15:23)
[2017-04-16] MEDS: PANTOPRAZOLE 40 MG TABLET.DR. PO SCH (07:46)
[2017-04-16] MEDS: PARoxetine 20 MG TABLET PO SCH (08:03)
[2017-04-16] MEDS: hydroCHLOROthiazide 12.5 MG CAPSULE PO SCH (08:04)
[2017-04-16] MEDS ORDERED: CETIRIZINE HCL 10 MG TABLET. PO SCH (09:00)
[2017-04-16] MEDS ORDERED: LACTOBACILLUS ACIDOPH & BULGAR 1 TABLET. PO SCH (09:00)
[2017-04-16] MEDS ORDERED: LOSARTAN POTASSIUM 50 MG TABLET. PO SCH (09:00)
[2017-04-16 10:37] VITALS: BP 115/72
[2017-04-16] MEDS: fentaNYL PF VIAL 100 MCG/2 ML VIAL IV PRN (13:14)
--- NOTE | 2017-04-16 13:24 | PDOC ---
Provider Note Provider Note [id number] acute on chronic resp fail a e of copd acute bronchitis see orders. SUN MANCERA MD Apr 16, 2017 13:24
[2017-04-16] MEDS: ENOXAPARIN 30 MG/0.3 ML SYRINGE. SQ SCH (14:14)
[2017-04-16] MEDS ORDERED: HYDROcodone/APAP 10/325 1 TAB TABLET PO PRN (14:30)
[2017-04-16] MEDS ORDERED: ALPRAZolam 1 MG TABLET PO PRN (14:30)
--- NOTE | 2017-04-16 14:33 | CONS ---
DATE OF CONSULTATION: 04/16/2017 I was asked to see this 56-year-old lady for kekwq-jf-mtpbmjz respiratory failure, acute exacerbation of chronic obstructive pulmonary disease. HISTORY OF PRESENT ILLNESS: She does have history of 69-nldp-ifyz smoking, stopped smoking 6 years ago. She is on oxygen. She states that she uses as on a p.r.n. basis. She started to have increased shortness of breath, cough with yellow sputum production for the past 2 days. She has had chest tightness. She has some wheezing. She has chills, no fever. She denies gastroesophageal reflux symptoms. She presented to the Emergency Room, was started on BiPAP. Currently, she is on and off BiPAP. PAST MEDICAL HISTORY: COPD, anxiety, hypertension. PAST SURGICAL HISTORY: Spinal effusion, tonsillectomy, hysterectomy. ALLERGIES: AMLODIPINE, PREGABALIN. MEDICATIONS: Currently, she is on Paxil, Cozaar, Protonix, Solu-Medrol 40 mg IV q. 8 hours, Singulair, Mucinex, DuoNeb. SOCIAL HISTORY: History of 70-uyfg-ojdh smoking, stopped smoking 6 years ago. FAMILY HISTORY: Positive for hypertension. REVIEW OF SYSTEMS: As mentioned as above, other systems are otherwise negative. PHYSICAL EXAMINATION: GENERAL: She is anxious. VITAL SIGNS: Her O2 saturation on 3 liters of oxygen is 96%, respiratory rate 22, heart rate 99, blood pressure 115/72, temperature 98. HEENT: Normocephalic, atraumatic. Pupils equal, round, reactive to light. Throat is clear. Nose: There is inflamed mucosa. NECK: There is no JVD, lymphadenopathy or thyromegaly. CARDIOVASCULAR: Regular rate and rhythm. PMI is nondisplaced. CHEST: Inspection is normal. LUNGS: There is end-expiratory wheezing. Percussion is within normal limit. ABDOMEN: Soft. Bowel sounds are good. There is no mass. EXTREMITIES: There is no edema. LYMPHATICS: There is no lymphadenopathy. NEUROLOGIC: Alert and oriented. SKIN: Warm. LABORATORY DATA: I reviewed the following lab data: Chest x-ray does not show infiltrate. WBC 7, hemoglobin 12.4, platelets 444. Sodium 137, potassium 4.2, chloride 99, CO2 of 28, glucose 165. BUN 33, creatinine 1. Troponin less than 0.1, blood ABG 7.5, pCO2 of 42, pO2 of 102 on 3 liters of oxygen; this was done after bronchodilators and steroid in the Emergency Room. IMPRESSION: 1. Gxgsj-gl-oslikel respiratory failure. 2. Acute exacerbation of chronic obstructive pulmonary disease. 3. Acute bronchitis. 4. Ex-smoker. 5. Anxiety. 6. Hypertension. PLAN AND RECOMMENDATIONS: 1. Titrate FiO2 to keep O2 saturation 92%. 2. BiPAP p.r.n., change BiPAP setting to 10/4, rate of 8, to use as needed. 3. Continue Solu-Medrol. 4. Lovenox for DVT prophylaxis. 5. Protonix for stress ulcer prophylaxis. 6. Add Levaquin. 7. Monitor respiratory status very closely. 8. notify id and nephrology The findings and recommendations were discussed with the patient and her son and RN. I have answered all of the patient's questions. She understood and agreed to proceed with the plan. Thank you very much for allowing me to participate in care of this very nice lady. SUN MANCERA M.D. : Erika JOB#: [id number] / [id number] RASHAWN
--- NOTE | 2017-04-16 14:41 | PDOC ---
Provider Note Provider Note [id number] CHEYANNE ESTRADA MD Apr 16, 2017 14:41
[2017-04-16] MEDS ORDERED: ONDANSETRON ODT 4 MG TAB.RAPDIS. PO PRN (14:45)
[2017-04-16 15:00] VITALS: BP 113/68
[2017-04-16 15:59] LABS: BILIRUBIN,URINE NEGATIVE (NEG); GLUCOSE,URINE NEGATIVE (NEG); NITRITE,URINE NEGATIVE (NEG); PROTEIN,URINE NEGATIVE (NEG-TRACE); UROBILINOGEN,URINE 0.2 mg/dL (0.2 mg/dL)
[2017-04-16] MEDS ORDERED: IPRATRPIUM/ALBUTEROL 0.5/2.5MG 3 ML NEBU. NEB SCH (16:00)
[2017-04-16 16:08] LABS: BACTERIA,URINE 0 /HPF (0-FEW); RBC,URINE 0 /HPF (0-2); SQUAMOUS EPITHELIAL CELL,UR FEW /LPF; WBC,URINE OCC /HPF (0-4)
--- NOTE | 2017-04-16 18:06 | HP ---
ADMIT DATE: CHIEF COMPLAINT: Respiratory distress. HISTORY OF PRESENT ILLNESS: Longstanding smoker with known COPD, came in with increasing shortness of breath, nonproductive cough and general malaise. Chest x-ray was clear. Laboratory studies were unremarkable and she is admitted on IV Levaquin, steroids and respiratory treatments and has no complaints at this time. She was on BiPAP for a time, but her blood gases pretty good and she is off that now. PAST MEDICAL HISTORY: Well documented, last admission about 3 months ago. MEDICATIONS: Multiple meds listed per the chart. ALLERGIES: No allergies. SOCIAL HISTORY: Still about half pack a day smoker, single, nondrinker, not employed to my knowledge. FAMILY HISTORY: Unremarkable. REVIEW OF SYSTEMS: No other complaints. OBJECTIVE: ENT: All within normal limits. NECK: No masses, nodes or bruits. LUNGS: Decreased breath sounds, a few scattered wheezes. No tachypnea. CARDIOVASCULAR: Regular rate, heart rate is 100. No murmur. ABDOMEN: Soft, benign and nontender. EXTREMITIES: 2+ clubbing, decent pedal pulses. No edema. NEUROLOGIC: Physiologic and nonfocal. ASSESSMENT: Acute exacerbation of chronic obstructive pulmonary disease. PLAN: As ordered. CHEYANNE ESTRADA MD DR: IRINEO/[place] JOB#: [id number] / [id number]
[2017-04-16 19:00] VITALS: BP 117/73
[2017-04-16] MEDS: MONTELUKAST SODIUM 10 MG TABLET. PO SCH (20:19)
[2017-04-16] MEDS ORDERED: MONTELUKAST SODIUM 10 MG TABLET. PO SCH (21:00)
[2017-04-16] MEDS: BUDESONIDE 0.5 MG/2 ML NEBU. NEB SCH (21:21)
[2017-04-16] MEDS: ALBUTEROL SULFATE 2.5 MG/3 ML NEBU. NEB PRN (21:22)
[2017-04-16 23:00] VITALS: BP 99/58
[2017-04-17] VITALS (7 sets, daily range): BP systolic 91–131; BP diastolic 51–81
[2017-04-17] MEDS: ALBUTEROL SULFATE 2.5 MG/3 ML NEBU. NEB PRN (01:13)
[2017-04-17] MEDS: ALPRAZolam 1 MG TABLET PO PRN ×3 (02:42→20:38)
[2017-04-17] MEDS: PROMETH/CODEINE 6.25/10MG 5 ML SYRUP. PO PRN ×3 (02:42→20:37)
[2017-04-17] MEDS: HYDROcodone/APAP 10/325 1 TAB TABLET PO PRN ×4 (02:42→20:39)
[2017-04-17] MEDS: methylPREDNISolone SOD SUCC PF 40 MG/ML VIAL. IV SCH ×3 (06:03→20:38)
[2017-04-17] MEDS ORDERED: PANTOPRAZOLE 40 MG TABLET.DR. PO SCH (07:30)
[2017-04-17] MEDS: BUDESONIDE 0.5 MG/2 ML NEBU. NEB SCH ×2 (07:55→20:16)
[2017-04-17] MEDS: IPRATRPIUM/ALBUTEROL 0.5/2.5MG 3 ML NEBU. NEB SCH ×4 (07:55→20:17)
[2017-04-17] MEDS ORDERED: PARoxetine 20 MG TABLET PO SCH (09:00)
[2017-04-17] MEDS: LISINOPRIL 20 MG TABLET PO SCH (09:00)
[2017-04-17] MEDS: amLODIPine BESYLATE 2.5 MG TABLET PO SCH (09:00)
[2017-04-17] MEDS ORDERED: hydroCHLOROthiazide 12.5 MG CAPSULE PO SCH (09:00)
[2017-04-17] MEDS: PARoxetine 20 MG TABLET PO SCH (09:30)
[2017-04-17] MEDS: LOSARTAN POTASSIUM 50 MG TABLET. PO SCH (09:31)
[2017-04-17] MEDS: ROFLUMILAST 500 MCG TABLET. PO SCH (09:31)
[2017-04-17] MEDS: hydroCHLOROthiazide 12.5 MG CAPSULE PO SCH (09:31)
[2017-04-17] MEDS: PANTOPRAZOLE 40 MG TABLET.DR. PO SCH (09:31)
--- NOTE | 2017-04-17 11:46 | PDOC ---
SUBJECTIVE Subjective still feel SOB and tired , Had CT chest today OBJECTIVE Vital Signs Vital Signs Date Time Temp Pulse Resp B/P (MAP) Pulse Ox O2 Delivery O2 Flow Rate FiO2 04/17/17 10:42 97.9 82 17 117/70 (86) 96 Nasal Cannula 2.0 97.9 04/17/17 09:41 21 93 Room Air 04/17/17 09:31 90 120/66 04/17/17 09:00 90 120/66 04/17/17 09:00 90 120/66 04/17/17 07:56 96 Nasal Cannula 2.0 04/17/17 07:46 98.1 90 17 120/66 (84) 97 Nasal Cannula 2.0 98.1 04/17/17 03:45 20 Nasal Cannula 2.0 04/17/17 03:00 98.2 97 17 91/51 (64) 97 98.2 04/17/17 02:42 20 Nasal Cannula 2.0 04/17/17 01:13 98 Nasal Cannula 2.0 04/16/17 23:00 98.3 90 18 99/58 (72) 96 98.3 04/16/17 22:24 24 Nasal Cannula 2.0 04/16/17 21:25 98 Nasal Cannula 2.0 04/16/17 21:24 98 Nasal Cannula 2.0 04/16/17 20:20 Nasal Cannula 2.0 04/16/17 19:00 97.7 98 20 117/73 (88) 97 97.7 04/16/17 15:25 99 Nasal Cannula 2.0 04/16/17 15:00 98.2 91 17 113/68 (83) 98 Nasal Cannula 2.0 98.2 04/16/17 13:45 Nasal Cannula 3.0 04/16/17 13:14 Nasal Cannula 3.0 04/16/17 12:00 Nasal Cannula 2.0 I & O Intake and Output 04/17/17 07:00 Intake Total 600 ml Output Total 1500 ml Balance -900 ml Intake Oral 600 ml Output Urine Total 1500 ml # Voids 2 PHYSICAL EXAM Physical Exam few scattered wheezes heart RRR abd soft ext no edema ASSESSMENT/PLAN Assessment/Plan 1- COPD exacerbation continue bronchodilators and steroids 2-H lung nodule CT donereport pending 3-chest pain none cardiac likely MSK continue plans Problems: COMMENT Lab Laboratory Tests Test 04/16/17 14:00 Urine Collection Type Unknown Urine Color Yellow Urine Clarity Clear Urine pH 6.0 Urine Specific [place] 1.010 Urine Protein Negative mg/dL (NEG-TRACE) Urine Glucose (UA) Negative mg/dL (NEG) Urine Ketones (Stick) Negative mg/dL (NEG) Urine Blood Negative (NEG) Urine Nitrite Negative (NEG) Urine Bilirubin Negative (NEG) Urine Urobilinogen Dipstick 0.2 mg/dL (0.2 mg/dL) Urine Leukocyte Esterase Negative (NEG) Urine RBC 0 /HPF (0-2) Urine WBC Occ /HPF (0-4) Urine Squamous Epithelial Cells Few /LPF Urine Bacteria 0 /HPF (0-FEW) FRANCES METZGER MD Apr 17, 2017 11:46
[2017-04-17] MEDS: ENOXAPARIN 30 MG/0.3 ML SYRINGE. SQ SCH (16:17)
--- NOTE | 2017-04-17 17:17 | RAD ---
CT CHEST WITHOUT CONTRAST History: screening for lung CA Comparison: CT chest dated 04/08/2016 Technique: Helical CT of the chest was performed without contrast. Axial and coronal reconstructions were obtained. Findings: The thyroid is symmetric. There is no significant axillary, mediastinal, or hilar adenopathy. There is scattered atherosclerotic calcification of the thoracic aorta. There is coronary artery disease. The thoracic aorta diameter is normal. The central airways are patent. The cardiac size is normal. There is no pericardial effusion. Moderate emphysema. Linear opacities in the right middle lobe, right lower lobe, and lingula likely related to atelectasis versus scarring. Unchanged 0.6 cm right middle lobe groundglass nodule (image 149, series 2). Unchanged 0.8 cm right lower lobe nodule (image 213, series 2). There is no focal consolidation, pleural effusion, or pneumothorax. [place] distended stomach. The visualized upper abdomen is otherwise unremarkable. There are degenerative changes of the thoracic spine. IMPRESSION: 1. Unchanged 0.8 cm right lower lobe nodule. Unchanged 0.6 cm right middle lobe groundglass nodule. No new nodules. 2. [place] distended stomach. Recommend clinical correlation for gastroparesis. PQRS Compliance Statement: One or more of the following individualized dose reduction techniques were utilized for this examination: 1. Automated exposure control 2. Adjustment of the mA and/or kV according to patient size 3. Use of iterative reconstruction technique
--- NOTE | 2017-04-17 19:03 | PDOC ---
PULMONARY PROGRESS NOTES Subjective PT LESS SOA AND LESS CHEST DISCOMFORT Vitals Vital Signs Date Time Temp Pulse Resp B/P (MAP) Pulse Ox O2 Delivery O2 Flow Rate FiO2 04/17/17 16:18 20 93 Nasal Cannula 2.0 04/17/17 15:08 97.9 85 122/68 (86) 97.9 ROS: No Nausea, No Chest Pain, No Abdominal Pain, No Increase Cough General: Alert, No acute distress HEENT: Other Lungs: Wheezing Cardiovascular: S1, S2 Abdomen: Soft, Non-tender Neuro Exam: Alert Extremities: No Edema Skin: Warm Labs Laboratory Tests Test 04/15/17 19:30 04/16/17 02:00 04/16/17 06:55 04/16/17 14:00 Troponin I Quantitative < 0.017 ng/mL (0.000-0.055) < 0.017 ng/mL (0.000-0.055) White Blood Count 7.0 x10^3/uL (4.0-11.0) Red Blood Count 4.01 x10^6/uL (3.50-5.40) Hemoglobin 12.4 g/dL (12.0-15.5) Hematocrit 36.2 % (36.0-47.0) Mean Corpuscular Volume 90 fL (79-100) Mean Corpuscular Hemoglobin 31 pg (25-35) Mean Corpuscular Hemoglobin Concent 34 g/dL (31-37) Red Cell Distribution Width 12.6 % (11.5-14.5) Platelet Count 444 x10^3/uL (140-400) Neutrophils (%) (Auto) 85 % (31-73) Lymphocytes (%) (Auto) 12 % (24-48) Monocytes (%) (Auto) 4 % (0-9) Eosinophils (%) (Auto) 0 % (0-3) Basophils (%) (Auto) 0 % (0-3) Neutrophils # (Auto) 5.9 x10^3uL (1.8-7.7) Lymphocytes # (Auto) 0.8 x10^3/uL (1.0-4.8) Monocytes # (Auto) 0.3 x10^3/uL (0.0-1.1) Eosinophils # (Auto) 0.0 x10^3/uL (0.0-0.7) Basophils # (Auto) 0.0 x10^3/uL (0.0-0.2) Sodium Level 137 mmol/L (136-145) Potassium Level 4.2 mmol/L (3.5-5.1) Chloride Level 99 mmol/L (98-107) Carbon Dioxide Level 28 mmol/L (21-32) Anion Gap 10 (6-14) Blood Urea Nitrogen 33 mg/dL (7-20) Creatinine 1.0 mg/dL (0.6-1.0) Estimated GFR (Cockcroft-Gault) 56.9 Glucose Level 165 mg/dL (70-99) Calcium Level 9.1 mg/dL (8.5-10.1) Urine Collection Type Unknown Urine Color Yellow Urine Clarity Clear Urine pH 6.0 Urine Specific [place] 1.010 Urine Protein Negative mg/dL (NEG-TRACE) Urine Glucose (UA) Negative mg/dL (NEG) Urine Ketones (Stick) Negative mg/dL (NEG) Urine Blood Negative (NEG) Urine Nitrite Negative (NEG) Urine Bilirubin Negative (NEG) Urine Urobilinogen Dipstick 0.2 mg/dL (0.2 mg/dL) Urine Leukocyte Esterase Negative (NEG) Urine RBC 0 /HPF (0-2) Urine WBC Occ /HPF (0-4) Urine Squamous Epithelial Cells Few /LPF Urine Bacteria 0 /HPF (0-FEW) Medications Active Scripts Medications Dose Route/Sig Max Daily Dose Days Date Category Losartan-Hctz 100-12.5 Mg Tab (Losartan/Hydrochlorothiazide) 1 Each Tablet 1 Each PO DAILY 04/15/17 Reported Zyrtec (Cetirizine Hcl) 10 Mg Capsule 10 Mg PO 04/15/17 Reported Probiotic (Lactobacillus Acidophilus) 1 Each Capsule 1 Each PO 04/15/17 Reported Prednisone 20 Mg Tablet 20 Mg PO 3X3DAY THEN 2X3DAY T 9 11/11/16 Rx Lortab 10-325 mg Tablet (Hydrocodone/Acetaminophen) 1 Each Tablet 1 Tab PO PRN Q4HRS PRN 30 11/11/16 Rx Zofran (Ondansetron Hcl) 8 Mg Tablet 1 Tab PO Q8HRS PRN 07/14/16 Rx Prometh-Codein 6.25-10 mg/5 ml (Promethazine HCl/Codeine) 5 Ml Syrup 5 Ml PO QID 10 06/27/16 Rx Paroxetine Hcl 20 Mg Tablet 20 Mg PO DAILY 30 06/27/16 Rx Montelukast Sodium Tablet (Montelukast Sodium) 10 Mg Tablet 10 Mg PO QHS 30 06/27/16 Rx Mucinex (Guaifenesin) 600 Mg Tablet.er 600 Mg PO BID 30 06/27/16 Rx Amlodipine Besylate 2.5 Mg Tablet 2.5 Mg PO DAILY 30 06/27/16 Rx Xanax (Alprazolam) 1 Mg Tablet 1 Tab PO QIDPRN PRN 06/20/16 Reported Anoro Ellipta 62.5-25 Mcg Inh (Umeclidinium Brm/Vilanterol Tr) 1 Each Disk.w.dev 1 Each IH DAILY 06/06/16 Reported Duoneb 0.5-3(2.5) Mg/3 Ml (Albuterol/Ipratropium) 3 Ml Ampul.neb 3 Ml NEB RTQID 30 03/19/16 Rx Ventolin Hfa Inhaler (Albuterol Sulfate) 18 Gm Hfa.aer.ad 2 Puff INH PRN Q4HRS PRN 03/14/16 Reported Nexium Capsule (Esomeprazole Magnesium) 20 Mg Capsule.dr 2 Cap PO DAILY 03/14/16 Reported Lisinopril 20 Mg Tablet 1 Tab PO DAILY 03/14/16 Reported Daliresp (Roflumilast) 500 Mcg Tablet 1 Tab PO DAILY 03/14/16 Reported Impression . 1. Nhajs-wk-lyzplex respiratory failure. 2. Acute exacerbation of chronic obstructive pulmonary disease. 3. Acute bronchitis. 4. Ex-smoker. 5. Anxiety. 6. Hypertension. Plan . CONTINUE THE SAME PT WANT TO GO HOME SOON OK BY ME ON D/C SOON TAPER PRED GOPI HOLLINS MD Apr 17, 2017 19:03
[2017-04-17] MEDS: MONTELUKAST SODIUM 10 MG TABLET. PO SCH (20:38)
[2017-04-17] MEDS ORDERED: MORPHINE SULFATE 2 MG/ML DISP.SYRIN. IM ONE (23:00)
[2017-04-17] MEDS ORDERED: MORPHINE SULFATE 2 MG/ML DISP.SYRIN. IV ONE (23:00)
[2017-04-18] MEDS: HYDROcodone/APAP 10/325 1 TAB TABLET PO PRN ×2 (02:42→09:25)
[2017-04-18] MEDS: PROMETH/CODEINE 6.25/10MG 5 ML SYRUP. PO PRN ×2 (02:43→09:25)
[2017-04-18] MEDS: ALPRAZolam 1 MG TABLET PO PRN ×2 (02:43→09:25)
[2017-04-18] MEDS: ALBUTEROL SULFATE 2.5 MG/3 ML NEBU. NEB PRN (05:20)
[2017-04-18] MEDS: methylPREDNISolone SOD SUCC PF 40 MG/ML VIAL. IV SCH (05:36)
[2017-04-18 07:00] VITALS: BP 131/66
[2017-04-18] MEDS: BUDESONIDE 0.5 MG/2 ML NEBU. NEB SCH (07:53)
[2017-04-18] MEDS: IPRATRPIUM/ALBUTEROL 0.5/2.5MG 3 ML NEBU. NEB SCH ×2 (07:54→11:43)
[2017-04-18] MEDS: amLODIPine BESYLATE 2.5 MG TABLET PO SCH (09:00)
[2017-04-18] MEDS: LISINOPRIL 20 MG TABLET PO SCH (09:00)
[2017-04-18] MEDS: ROFLUMILAST 500 MCG TABLET. PO SCH (09:19)
[2017-04-18] MEDS: PARoxetine 20 MG TABLET PO SCH (09:19)
[2017-04-18] MEDS: LOSARTAN POTASSIUM 50 MG TABLET. PO SCH (09:19)
[2017-04-18] MEDS: PANTOPRAZOLE 40 MG TABLET.DR. PO SCH (09:19)
[2017-04-18] MEDS: hydroCHLOROthiazide 12.5 MG CAPSULE PO SCH (09:19)
--- NOTE | 2017-04-18 09:24 | PDOC ---
SUBJECTIVE Subjective She's feeling much better, discussed the findings on her CT and no change in the pulmonary nodules OBJECTIVE Vital Signs Vital Signs Date Time Temp Pulse Resp B/P (MAP) Pulse Ox O2 Delivery O2 Flow Rate FiO2 04/18/17 08:02 98 Nasal Cannula 2.0 04/18/17 07:56 98 Nasal Cannula 2.0 04/18/17 07:00 98.3 84 17 131/66 (87) 100 Nasal Cannula 2.0 98.3 04/18/17 05:20 Nasal Cannula 2.0 04/18/17 03:43 18 Nasal Cannula 3.0 04/18/17 02:42 20 Room Air 04/17/17 23:26 18 Nasal Cannula 3.0 04/17/17 23:00 97.6 98 20 105/81 (89) 99 Nasal Cannula 2.0 97.6 04/17/17 22:53 26 Nasal Cannula 3.0 04/17/17 20:39 26 04/17/17 20:20 97 Nasal Cannula 2.0 04/17/17 20:17 97 Nasal Cannula 2.0 04/17/17 19:56 Nasal Cannula 3.0 04/17/17 19:00 97.7 97 20 131/62 (85) 97 Nasal Cannula 2.0 97.7 04/17/17 16:18 20 93 Nasal Cannula 2.0 04/17/17 15:39 Nasal Cannula 2.0 04/17/17 15:08 97.9 85 17 122/68 (86) 95 Nasal Cannula 2.0 97.9 04/17/17 11:52 Nasal Cannula 2.0 04/17/17 11:00 92 04/17/17 10:42 97.9 82 17 117/70 (86) 96 Nasal Cannula 2.0 97.9 04/17/17 09:41 21 93 Room Air 04/17/17 09:31 90 120/66 I & O Intake and Output 04/18/17 06:59 Intake Total 640 ml Balance 640 ml Intake Oral 640 ml # Voids 6 PHYSICAL EXAM Physical Exam She is moving air much better and feels much better today no wheezes ASSESSMENT/PLAN Assessment/Plan Plan to discharge home today and on taper steroids and follow-up as outpatient Problems: FRANCES METZGER MD Apr 18, 2017 09:24
--- NOTE | 2017-04-18 09:45 | PDOC3 ---
Discharge Summary* Date of Admission: Apr 15, 2017 Date of Discharge: Apr 18, 2017 Admitting Diagnosis Problems Medical Problems: (1) Acute on chronic respiratory failure Status: Acute (2) COPD (chronic obstructive pulmonary disease) Status: Acute Problems: Final Diagnosis Problems Medical Problems: (1) Acute on chronic respiratory failure Status: Acute (2) COPD (chronic obstructive pulmonary disease) Status: Acute CONSULTS pulmonary Procedures Chest x-ray, CT scan of the chest Brief Hospital Course Ms. Vazuqez is a 56 old F who presented with increasing shortness of breath and wheezing and respiratory failure she was treated with steroids bronchodilators oxygen antibiotic and felt gradually better she was having some chest pain and a CT of the chest was obtained. She does have history of pulmonary nodules was no changes in her pulmonary nodule size she was feeling much better and was felt that she can be discharged home on taper steroids Disposition/Orders: D/C to Home CONDITION AT DISCHARGE: Improved Diet: Cardiac Scheduled Esomeprazole Magnesium (Nexium Capsule), 2 CAP PO DAILY, (Reported) Guaifenesin (Mucinex), 600 MG PO BID Ipratropium/Albuterol Sulfate (Duoneb 0.5-3(2.5) Mg/3 Ml), 3 ML NEB RTQID Losartan/Hydrochlorothiazide (Losartan-Hctz 100-12.5 Mg Tab), 1 EACH PO DAILY, ( Reported) Montelukast Sodium (Montelukast Sodium Tablet), 10 MG PO QHS Paroxetine Hcl (Paroxetine Hcl), 20 MG PO DAILY Prednisone (Prednisone), 20 MG PO 3X3day then 2x3day t Promethazine HCl/Codeine (Prometh-Codein 6.25-10 mg/5 ml), 5 ML PO QID Roflumilast (Daliresp), 1 TAB PO DAILY, (Reported) Umeclidinium Brm/Vilanterol Tr (Anoro Ellipta 62.5-25 Mcg Inh), 1 EACH IH DAILY, (Reported) Scheduled PRN Albuterol Sulfate (Ventolin Hfa Inhaler), 2 PUFF INH PRN Q4HRS PRN for SHORTNESS OF BREATH, (Reported) Alprazolam (Xanax), 1 TAB PO QIDPRN PRN for ANXIETY Hydrocodone Bit/Acetaminophen (Hydrocodone-Apap 10-325 ), 1 TAB PO PRN Q8HRS PRN for PAIN Ondansetron Hcl (Zofran), 1 TAB PO Q8HRS PRN for NAUSEA Miscellaneous Medications Cetirizine Hcl (Zyrtec), 10 MG PO, (Reported) Lactobacillus Acidophilus (Probiotic), 1 EACH PO, (Reported) Discontinued Medications Amlodipine Besylate (Amlodipine Besylate), 2.5 MG PO DAILY Hydrocodone/Acetaminophen (Lortab 10-325 mg Tablet), 1 TAB PO PRN Q4HRS PRN for PAIN Lisinopril (Lisinopril), 1 TAB PO DAILY, (Reported) FOLLOW UP APPOINTMENT: Dr. Metzger 1-2 weeks Time Spent Total time spent with patient [] minutes for coordination of care, counseling, and education. FRANCES METZGER MD Apr 18, 2017 09:45
[2017-04-18] MEDS ORDERED: ALPR1TAB2 PO (09:51)
[2017-04-18] MEDS ORDERED: PRED20TA PO (09:51)
[2017-04-18] MEDS ORDERED: HYDR-2766 PO (09:51)
[2017-04-18] MEDS ORDERED: PROM5SYR2 PO (09:51)
[2017-04-18 11:07] VITALS: BP 130/75
== END 2017-04-18 12:10 | disposition home or self-care (01) | DRG 189 ==
LOC: ER 12:21 → 5 SOUTH 13:41
PROVIDERS: ADMIT Internal Medicine; ATTEND Internal Medicine
PROC: 5A09357 Assistance with Respiratory Ventilation, Less than 24 Consecutive Hours, Continuous Positive Airway Pressure (ICD-10-PCS; principal; 2017-04-15)
DX: J96.20 Acute and chronic respiratory failure, unspecified whether with hypoxia or hypercapnia (principal); J44.1 Chronic obstructive pulmonary disease with (acute) exacerbation; J44.0 Chronic obstructive pulmonary disease with (acute) lower respiratory infection; J20.9 Acute bronchitis, unspecified; F17.210 Nicotine dependence, cigarettes, uncomplicated; R07.89 Other chest pain; F41.9 Anxiety disorder, unspecified; I10 Essential (primary) hypertension; Z82.49 Family history of ischemic heart disease and other diseases of the circulatory system; Z90.710 Acquired absence of both cervix and uterus; Z88.8 Allergy status to other drugs, medicaments and biological substances; Z98.1 Arthrodesis status
CPT/HCPCS: 36415; 36600; 71010; 71250; 80048; 80053; 81001; 82805; 83605; 83880; 84484; 85027; 87641; 93005; 94640; 94660; 94760; 96374; 96375; J1650; J1956; J2060; J2270; J2920; J2930; J3010; J7613; J7620; J7626; 99285-25

== ENCOUNTER 2017-04-20 19:01 | Emergency (ER) | payer MEDICARE ==
[~2017-04-20] VITALS: Ht 154.9 cm; Wt 59.0 kg
[~2017-04-20 19:01] MED LIST changes: +CETI10CA PO; +HYDR-2766 PO; +LACT1CAP6 PO; +LOSA1TAB18 PO
[2017-04-20] MEDS ORDERED: MORPHINE SULFATE 2 MG/ML DISP.SYRIN. IV/SQ PRN (19:15)
--- NOTE | 2017-04-20 19:24 | PHYS DOC ---
Past Medical History Past Medical History: Anxiety, COPD, Hypertension Additional Past Medical Histor: CATARACTS Past Surgical History: Hysterectomy, Tonsillectomy Additional Past Surgical Histo: SPINAL FUSION, LYPOMA REMOVED, R KNEE, L ELBOW NERVES, cataract sx Alcohol Use: Rarely Drug Use: None Adult General Chief Complaint Chief Complaint: SHORTNESS OF BREATH HPI HPI Patient is a 56 year old female presents with complaints of shortness of breath similar to produce episodes of COPD. Patient is a former smoker but hasn' t smoked in over 5 years. Patient was recently discharged because of similar diagnosis. Patient denies any fevers or productive sputum. States is just hard to catch her breath, patient at baseline uses 2 L of oxygen's home. The patient states that there was some burning food at home which triggered her dyspnea attack today Review of Systems Review of Systems Constitutional: Denies fever or chills [] HENT: Denies nasal congestion or sore throat [] Respiratory: yes the shortness of breath Cardiovascular: No chest pain, no edema GI: Denies abdominal pain, nausea, vomiting, bloody stools or diarrhea [] : Denies dysuria or hematuria [] Musculoskeletal: Denies back pain or joint pain. No sensitivity Integument: Denies rash or skin lesions [] Neurologic: Denies headache, focal weakness Current Medications Current Medications Current Medications Medications (Trade) Dose Ordered Sig/Marian Start Time Stop Time Status Last Admin Dose Admin Albuterol/ Ipratropium (Duoneb) 3 ml 1X ONCE 04/20/17 20:15 04/20/17 20:16 DC Morphine Sulfate 2 mg PRN Q15MIN PRN 04/20/17 19:15 04/21/17 19:14 04/20/17 19:23 2 MG Prednisone (Prednisone) 60 mg 1X ONCE 04/20/17 19:30 04/20/17 19:31 DC 04/20/17 19:22 60 MG Sodium Chloride 500 ml @ 500 mls/hr 1X ONCE 04/20/17 21:00 04/20/17 21:59 04/20/17 20:52 500 MLS/HR Allergies Allergies Allergies Coded Allergies Type Severity Reaction Last Updated Verified amlodipine Allergy Intermediate Swelling 11/05/16 Yes pregabalin Allergy Intermediate both legs from knee down to feet swelled up 09/09 Yes Physical Exam Physical Exam Constitutional: Well developed, well nourished, mild distress, non-toxic appearance. [] HENT: Normocephalic, atraumatic,, oropharynx dry no oral exudates Eyes: EOMI, conjunctiva normal, no discharge. [] Neck: Normal range of motion, no tenderness, supple, no stridor. [] Cardiovascular tachycardic, equal pulses, normal perfusion Lungs & Thorax: Mild respiratory distress, tachypnea, expiratory wheezing throughout both lung white Abdomen: Bowel sounds normal, soft, no tenderness, no masses, no pulsatile masses. [] Skin: Warm, dry, no erythema, no rash. [] Back: No tenderness, no CVA tenderness. [] Extremities: No tenderness, no cyanosis, no clubbing, ROM intact, no edema. No signs of DVT Neurologic: Alert and oriented X 3, normal motor function, no focal deficits noted. [] Psychologic: Affect normal, judgement normal, mild anxiety [] Current Patient Data Vital Signs Vital Signs Date Time Temp Pulse Resp B/P (MAP) Pulse Ox O2 Delivery O2 Flow Rate FiO2 04/20/17 20:59 96 Nasal Cannula 2.0 04/20/17 19:23 32 04/20/17 19:08 100 144/77 (99) EKG EKG 105, sinus tachycardia, no STEMI, EP interpretation at 1911. [] Radiology/Procedures Radiology/Procedures [] Course & Med Decision Making Course & Med Decision Making 2145 Pertinent Labs and Imaging studies reviewed. (See chart for details) I have discussed the results with the patient and reevaluated the patient at this time. Patient states she feels markedly improved and wishes to be discharged home. Strict return and cautions were discussed with patient progress to follow up as directed. Questions were sought and answered, patient has no reservations going home. [] Dragon Disclaimer Dragon Disclaimer This electronic medical record was generated, in whole or in part, using a voice recognition dictation system. Departure Departure Impression: Primary Impression: COPD exacerbation Additional Impression: Passive smoke exposure Disposition: HOME, SELF-CARE Condition: IMPROVED Referrals: FRANCES METZGER MD (PCP) follow up with your pcp in 2-4 days if your symptoms worsen or fail to improve. If your pcp is not available please return to the ED immediately Patient Instructions: Chronic Obstructive Pulmonary Disease Exacerbation, Easy- to-Read Scripts Doxycycline Hyclate (DOXYCYCLINE HYCLATE) 100 Mg Tablet.dr 1 TAB PO BID, #14 TAB Prov: Nasir LAURA MD 04/20/17 Acetaminophen With Codeine (ACETAMINOPHEN-COD #3 TABLET) 1 Each Tablet 1 TAB PO PRN Q6HRS Y for PAIN for 2 Days, #8 TAB Prov: Nasir LAURA MD 04/20/17 Problem Qualifiers Nasir LAURA MD Apr 20, 2017 19:24
[2017-04-20] MEDS ORDERED: predniSONE 10 MG TABLET PO ONE (19:30)
[2017-04-20] MEDS ORDERED: IPRATRPIUM/ALBUTEROL 0.5/2.5MG 3 ML NEBU. NEB ONE ×2 (19:30→20:15)
[2017-04-20] MEDS ORDERED: IV NORMAL SALINE 500ML BAG 500 ML IV ONE (21:00)
[2017-04-20 21:54] VITALS: BP 131/79
[2017-04-20] MEDS ORDERED: ACET1TAB33 PO (21:56)
[2017-04-20] MEDS ORDERED: DOXY100T9 PO (21:56)
--- NOTE | 2017-04-21 06:18 | EKG ---
[facility] [address] [place] [address] Test Date: 2017-04-20 Test Time: 19:10:38 Pat Name: CHUCKIE LOCO Department: Room: Gender: F Sleep Tech: : 1960 Requested By: Nasir LAURA Order Number: [id number] Reading MD: Howard Gonzalez Measurements Intervals [place] Rate: 105 P: 66 SD: 136 QRS: 62 QRSD: 78 T: 47 QT: 320 QTc: 427 Interpretive Statements SINUS TACHYCARDIA Electronically Signed On 04-23-2017 14:59:52 CDT by Howard Gonzalez
--- NOTE | 2017-04-21 07:12 | RAD ---
AP chest radiograph 04/20/2017 Indication: COPD, concern for pneumonia. Comparison: 04/15/2017 chest radiograph. Findings: Cardiac and mediastinal silhouettes are within normal limits. There is hyperinflation of both lungs. No pleural effusion, pneumothorax or focal consolidation. Impression: Hyperinflation of both lungs consistent with known COPD with no focal consolidation to suggest superimposed pneumonia.
[2017-04-21] MEDS ORDERED: PROAIR HFA8.5 GM INH (18:53)
[2017-04-25] MEDS ORDERED: DOXY100T9 PO (08:57)
[2017-04-25] MEDS ORDERED: NYST100054 SWSW (08:57)
[2017-04-25] MEDS ORDERED: PRED20TA PO (08:57)
[2017-04-25] MEDS ORDERED: PROM5SYR2 PO (08:57)
== END 2017-04-20 22:11 | disposition home or self-care (01) ==
LOC: ER 19:11
DX: J44.1 Chronic obstructive pulmonary disease with (acute) exacerbation (principal); I10 Essential (primary) hypertension; Z77.22 Contact with and (suspected) exposure to environmental tobacco smoke (acute) (chronic); Z88.8 Allergy status to other drugs, medicaments and biological substances; Z87.891 Personal history of nicotine dependence
CPT/HCPCS: 71010; 93005; 94640; 96361; 96374; 99284; J2270; J7040; J7512; J7620

== ENCOUNTER 2017-04-30 13:58 | Inpatient (IN) | payer MEDICARE ==
[~2017-04-30] VITALS: Ht 154.9 cm; Wt 68.1 kg
[~2017-04-30 13:58] MED LIST changes: +ACET1TAB33 PO; +DOXY100T9 PO; +NYST100054 SWSW
[2017-04-30 14:21] LABS: BILIRUBIN,URINE NEGATIVE (NEG); GLUCOSE,URINE NEGATIVE (NEG); NITRITE,URINE NEGATIVE (NEG); PROTEIN,URINE NEGATIVE (NEG-TRACE); UROBILINOGEN,URINE 0.2 mg/dL (0.2 mg/dL)
[2017-04-30] MEDS ORDERED: methylPREDNISolone SOD SUCC PF 125 MG/2 ML VIAL. IV ONE (14:30)
[2017-04-30] MEDS ORDERED: IPRATRPIUM/ALBUTEROL 0.5/2.5MG 3 ML NEBU. NEB ONE (14:30)
[2017-04-30 14:35] LABS: BACTERIA,URINE 0 /HPF (0-FEW); RBC,URINE 0 /HPF (0-2); SQUAMOUS EPITHELIAL CELL,UR FEW /LPF; WBC,URINE 0 /HPF (0-4)
--- NOTE | 2017-04-30 14:36 | ED.ADGEN ---
Past Medical History Past Medical History: Anxiety, COPD, Hypertension Additional Past Medical Histor: CATARACTS Past Surgical History: Hysterectomy, Tonsillectomy Additional Past Surgical Histo: SPINAL FUSION, LYPOMA REMOVED, R KNEE, L ELBOW NERVES, cataract sx Alcohol Use: Rarely Drug Use: None Adult General Chief Complaint Chief Complaint: SHORTNESS OF BREATH HPI HPI Patient is a 56 year old woman, history of COPD, hypertension, anxiety, who presents to the emergency department with a complaint of chest tightness, shortness of breath, sore throat, ear pain for the past several days. Patient states that she has been taking nystatin and doxycycline at home as directed by her primary care provider. States she has been using a respiratory treatments at home without relief. States that she has tightness underneath her chest, worsened with deep inspiration, which feels consistent with her previous episodes of COPD. She states that she currently is on a steroid taper, down to 20 mg prednisone 2 pills once daily. States she has been compliant with all of her medications, denies any nausea or vomiting, states that the pain is located in the right ear, she's been using drops that she got [id number] for pain , denies any hearing loss, any fevers or chills, any recent travel or procedures , any swelling extremities. Noted to be mildly wheezing and tachypnic in the ED. Review of Systems Review of Systems Constitutional: Denies fever or chills. [] Eyes: Denies change in visual acuity. [] HENT: Denies nasal congestion or sore throat. [] Respiratory: Denies cough or shortness of breath. [] Cardiovascular: Denies chest pain or edema. [] GI: Denies abdominal pain, nausea, vomiting, bloody stools or diarrhea. [] : Denies dysuria. [] Musculoskeletal: Denies back pain or joint pain. [] Integument: Denies rash. [] Neurologic: Denies headache, focal weakness or sensory changes. [] Endocrine: Denies polyuria or polydipsia. [] Lymphatic: Denies swollen glands. [] Psychiatric: Denies depression or anxiety. [] Current Medications Current Medications Current Medications Medications (Trade) Dose Ordered Sig/Marian Start Time Stop Time Status Last Admin Dose Admin Albuterol/ Ipratropium (Duoneb) 3 ml 1X ONCE 04/30/17 14:30 04/30/17 14:31 DC 04/30/17 14:41 3 ML Fentanyl Citrate (Fentanyl 2ml Vial) 25 mcg PRN Q15MIN PRN 04/30/17 15:15 05/01/17 15:14 04/30/17 15:10 25 MCG Methylprednisolone Sodium Succinate (SOLU-Medrol 125MG VIAL) 125 mg 1X ONCE 04/30/17 14:30 04/30/17 14:31 DC 04/30/17 15:10 125 MG Allergies Allergies Allergies Coded Allergies Type Severity Reaction Last Updated Verified amlodipine Allergy Intermediate Swelling 04/21/17 Yes pregabalin Allergy Intermediate both legs from knee down to feet swelled up Yes Physical Exam Physical Exam Constitutional: Well developed, well nourished, no acute distress, appears mildly anxious. [] HENT: Normocephalic, atraumatic, bilateral external ears normal, oropharynx moist, no oral exudates, nose normal. [] Eyes: PERRLA, EOMI, conjunctiva normal, no discharge. [] Neck: Normal range of motion, no tenderness, supple, no stridor. [] Cardiovascular:Heart rate regular rhythm, no murmur, S1, S2, rubs or gallops. [] Lungs & Thorax: Diminished breath sounds at bases bilaterally, mild scattered wheezing. No rales. [] Abdomen: Bowel sounds normal, soft, no tenderness, no rebound, rigidity, no guarding, no masses, no pulsatile masses. [] Skin: Warm, dry, no erythema, no rash. [] Back: No tenderness, no CVA tenderness. [] Extremities: No tenderness, no cyanosis, no clubbing, ROM intact, no edema. Negative Homans sign, mild muscle wasting. [] Neurologic: Alert and oriented X 3, normal motor function, normal sensory function, no focal deficits noted. [] Psychologic: Affect normal, judgement normal, mood normal. [] Current Patient Data Vital Signs Vital Signs Date Time Temp Pulse Resp B/P (MAP) Pulse Ox O2 Delivery O2 Flow Rate FiO2 04/30/17 16:00 86 29 153/76 (101) 96 04/30/17 14:44 Room Air 04/30/17 14:00 98.1 98.1 Lab Values Laboratory Tests Test 04/30/17 13:57 04/30/17 14:36 04/30/17 15:21 Urine Collection Type Unknown Urine Color Yellow Urine Clarity Clear Urine pH 8.0 Urine Specific [place] <=1.005 Urine Protein Negative mg/dL (NEG-TRACE) Urine Glucose (UA) Negative mg/dL (NEG) Urine Ketones (Stick) Negative mg/dL (NEG) Urine Blood Negative (NEG) Urine Nitrite Negative (NEG) Urine Bilirubin Negative (NEG) Urine Urobilinogen Dipstick 0.2 mg/dL (0.2 mg/dL) Urine Leukocyte Esterase Negative (NEG) Urine RBC 0 /HPF (0-2) Urine WBC 0 /HPF (0-4) Urine Squamous Epithelial Cells Few /LPF Urine Bacteria 0 /HPF (0-FEW) Urine Mucus Slight /LPF Sodium Level 139 mmol/L (136-145) Potassium Level 5.3 mmol/L (3.5-5.1) H Chloride Level 98 mmol/L (98-107) Carbon Dioxide Level 35 mmol/L (21-32) H Anion Gap 6 (6-14) Blood Urea Nitrogen 28 mg/dL (7-20) H Creatinine 0.8 mg/dL (0.6-1.0) Estimated GFR (Cockcroft-Gault) 73.7 BUN/Creatinine Ratio 35 (6-20) H Glucose Level 108 mg/dL (70-99) H Calcium Level 9.9 mg/dL (8.5-10.1) Total Bilirubin 0.3 mg/dL (0.2-1.0) Aspartate Amino Transferase (AST) 21 U/L (15-37) Alanine Aminotransferase (ALT) 153 U/L (14-59) H Alkaline Phosphatase 61 U/L (46-116) Troponin I Quantitative < 0.017 ng/mL (0.000-0.055) PK-Ofz-T-Type Natriuretic Peptide 460 pg/mL (0-124) H Total Protein 6.2 g/dL (6.4-8.2) L Albumin 3.3 g/dL (3.4-5.0) L Albumin/Globulin Ratio 1.1 (1.0-1.7) White Blood Count 10.5 x10^3/uL (4.0-11.0) Red Blood Count 3.78 x10^6/uL (3.50-5.40) Hemoglobin 11.8 g/dL (12.0-15.5) L Hematocrit 35.0 % (36.0-47.0) L Mean Corpuscular Volume 93 fL (79-100) Mean Corpuscular Hemoglobin 31 pg (25-35) Mean Corpuscular Hemoglobin Concent 34 g/dL (31-37) Red Cell Distribution Width 14.4 % (11.5-14.5) Platelet Count 337 x10^3/uL (140-400) Neutrophils (%) (Auto) 91 % (31-73) H Lymphocytes (%) (Auto) 6 % (24-48) L Monocytes (%) (Auto) 3 % (0-9) Eosinophils (%) (Auto) 0 % (0-3) Basophils (%) (Auto) 0 % (0-3) Neutrophils # (Auto) 9.6 x10^3uL (1.8-7.7) H Lymphocytes # (Auto) 0.6 x10^3/uL (1.0-4.8) L Monocytes # (Auto) 0.3 x10^3/uL (0.0-1.1) Eosinophils # (Auto) 0.0 x10^3/uL (0.0-0.7) Basophils # (Auto) 0.0 x10^3/uL (0.0-0.2) Laboratory Tests 04/30/17 15:21 Laboratory Tests 04/30/17 14:36 EKG EKG EC: Sinus rhythm, heart rate 85 beats/minute, upright axis, QTC of 395, WI of 122, QRS of 72, contour normality is noted in the anterior lateral leads, with mild baseline artifact noted, no ST elevations or depressions, abnormal ECG , does not meet STEMI criteria. As interpreted by me. [] Radiology/Procedures Radiology/Procedures [][facility] [address] [place] [address] IMAGING REPORT Signed PATIENT: CHUCKIE LOCO ACCOUNT: [id number] : 1960 LOCATION: ER AGE: 56 SEX: F EXAM STATUS: REG ER ORD. PHYSICIAN: JAYLA HERNADEZ DO REASON: SOB/cough PROCEDURE: CHEST PA & LATERAL Indication shortness of breath cough hypertension and COPD. Frontal and lateral views of the chest were obtained and are compared to an examination 04/23/2017. Underlying emphysematous changes with secondary compressive atelectasis, particularly in the right mid and lower lung field is noted similar to the previous exam. Heart size is at the upper limits of normal but unchanged. There is no congestive heart failure. There is no acute parenchymal infiltrate significant pleural fluid collection or pneumothorax. IMPRESSION: Chronic changes. No definite acute process or significant change compared to the study 1 week earlier DICTATED and SIGNED BY: FELA COLEMAN MD DATE: 04/30/17 1556 CC: JAYLA HERNADEZ DO; FRANCES METZGER MD ~ Course & Med Decision Making Course & Med Decision Making Pertinent Labs and Imaging studies reviewed. (See chart for details) Patient received nebulizer treatment, and Solu-Medrol in the ED, along with lidocaine for her throat. I did not identify any significant evidence of infection and inflammation or concerning findings in the throat or ear, patient noted to have mild inflammation, no stridor, no concerning findings otherwise identified, with no exudate or evidence of significant inflammation. Chest x- ray was unremarkable, patient states she is feeling slightly better after breathing treatment given, still feels though she can't breathe. Oxygen saturation remained stable, although she still has rapid respirations. I did discuss findings as above with Dr. Metzger, patient's primary care provider, patient accepted to her service as a full admission to the medical telemetry floor, will limit narcotic use to the patient's home oral medications, and will place a consultation for Dr. Victor, patient's plate fitter. Patient was agreeable this plan, bridge orders entered per discussion. Dragon Disclaimer Dragon Disclaimer This electronic medical record was generated, in whole or in part, using a voice recognition dictation system. Departure Impression: Primary Impression: COPD (chronic obstructive pulmonary disease) Disposition: ADMITTED INPATIENT Admitting Physician: Frances Metzger Condition: IMPROVED JAYLA HERNADEZ DO Apr 30, 2017 14:36
[2017-04-30] MEDS ORDERED: fentaNYL PF VIAL 100 MCG/2 ML VIAL IV PRN (15:15)
[2017-04-30 15:24] LABS: CALCIUM 9.9 mg/dL (8.5-10.1); CREATININE 0.8 mg/dL (0.6-1.0); GFR 73.7; POTASSIUM 5.3 mmol/L (3.5-5.1)
[2017-04-30 15:29] LABS: ALBUMIN 3.3 g/dL (3.4-5.0); ALBUMIN/GLOBULIN RATIO 1.1 (1.0-1.7); TOTAL BILIRUBIN 0.3 mg/dL (0.2-1.0); TOTAL PROTEIN 6.2 g/dL (6.4-8.2)
[2017-04-30 15:31] LABS: BASO % 0 % (0-3); EOS % 0 % (0-3); HEMOGLOBIN 11.8 g/dL (12.0-15.5); LYMPH # 0.6 x10^3/uL (1.0-4.8); LYMPH % 6 % (24-48); MEAN CORPUSCULAR HEMOGLOBIN 31 pg (25-35); MEAN CORPUSCULAR HGB CONC 34 g/dL (31-37); MEAN CORPUSCULAR VOLUME 93 fL (79-100); MONO % 3 % (0-9); NEUT % 91 % (31-73); PLATELET COUNT 337 x10^3/uL (140-400); RED BLOOD COUNT 3.78 x10^6/uL (3.50-5.40); RED CELL DISTRIBUTION WIDTH 14.4 % (11.5-14.5); WHITE BLOOD COUNT 10.5 x10^3/uL (4.0-11.0)
--- NOTE | 2017-04-30 16:01 | RAD ---
Indication shortness of breath cough hypertension and COPD. Frontal and lateral views of the chest were obtained and are compared to an examination 04/23/2017. Underlying emphysematous changes with secondary compressive atelectasis, particularly in the right mid and lower lung field is noted similar to the previous exam. Heart size is at the upper limits of normal but unchanged. There is no congestive heart failure. There is no acute parenchymal infiltrate significant pleural fluid collection or pneumothorax. IMPRESSION: Chronic changes. No definite acute process or significant change compared to the study 1 week earlier
[2017-04-30] MEDS ORDERED: LIDOCAINE 2% VISCOUS 15 ML SOLUTION. SWSW ONE (16:45)
[2017-04-30] MEDS ORDERED: NYSTATIN 100,000 UNITS/ML 5 ML ORAL.SUSP. SWSW SCH (17:00)
[2017-04-30] MEDS ORDERED: IV NORMAL SALINE 1000ML BAG 1,000 ML IV ONE (17:00)
[2017-04-30] MEDS ORDERED: ACETAMINOPHEN 325 MG TABLET. PO PRN (17:45)
[2017-04-30] MEDS ORDERED: ONDANSETRON PF 4 MG/2 ML VIAL. IV PRN (17:45)
[2017-04-30] MEDS ORDERED: NITROGLYCERIN SUBLINGUAL 0.4 MG BOTTLE OF 25. SL ONE (18:11)
[2017-04-30] MEDS ORDERED: NON FORMULARY ITEM (Albuterol Sulfate (Proair Hfa Inhaler) 1 PUFF) INH PRN (18:15)
[2017-04-30] MEDS ORDERED: ACETAMINOPHEN/CODEINE 300/30MG TABLET. PO PRN (18:15)
[2017-04-30] MEDS: ALPRAZolam 1 MG TABLET PO PRN (18:23)
[2017-04-30] MEDS: ROFLUMILAST 500 MCG TABLET. PO SCH (18:30)
[2017-04-30] MEDS ORDERED: MORPHINE SULFATE 4 MG/ML DISP.SYRIN. IV ONE (18:30)
[2017-04-30] MEDS ORDERED: MORPHINE SULFATE 2 MG/ML DISP.SYRIN. IV ONE (18:30)
[2017-04-30] MEDS ORDERED: MORPHINE SULFATE 2 MG/ML DISP.SYRIN. IV PRN (18:30)
[2017-04-30] MEDS: PARoxetine 20 MG TABLET PO SCH (18:30)
[2017-04-30] MEDS: MORPHINE SULFATE 4 MG/ML DISP.SYRIN. IV PRN ×2 (18:30→21:51)
[2017-04-30] MEDS: HYDROcodone/APAP 10/325 1 TAB TABLET PO PRN (18:31)
[2017-04-30 19:00] VITALS: BP 121/79
[2017-04-30 19:21] VITALS: BP 154/92
[2017-04-30] MEDS: hydroCHLOROthiazide 12.5 MG CAPSULE PO SCH (20:00)
[2017-04-30] MEDS: BUDESONIDE 0.5 MG/2 ML NEBU. NEB SCH (20:00)
[2017-04-30] MEDS: LOSARTAN POTASSIUM 50 MG TABLET. PO SCH (20:00)
[2017-04-30] MEDS: ALBUTEROL SULFATE 2.5 MG/3 ML NEBU. NEB SCH (20:00)
[2017-04-30] MEDS: IPRATRPIUM/ALBUTEROL 0.5/2.5MG 3 ML NEBU. NEB SCH ×2 (20:00)
[2017-04-30] MEDS: methylPREDNISolone SOD SUCC PF 40 MG/ML VIAL. IV SCH (21:48)
[2017-04-30] MEDS: PROMETH/CODEINE 6.25/10MG 5 ML SYRUP. PO PRN (21:48)
[2017-04-30] MEDS: MONTELUKAST SODIUM 10 MG TABLET. PO SCH (21:49)
[2017-04-30] MEDS: DOXYCYCLINE HYCLATE 100 MG TABLET PO SCH (21:49)
[2017-04-30] MEDS: NYSTATIN 100,000 UNITS/ML 5 ML ORAL.SUSP. SWSW SCH (21:49)
[2017-04-30 23:00] VITALS: BP 114/75
[2017-05-01] VITALS (7 sets, daily range): BP systolic 103–143; BP diastolic 49–82
[2017-05-01] MEDS ORDERED: PHENOL ORAL SPRAY 177ML BOTTLE. PO PRN (00:15)
[2017-05-01] MEDS: ALPRAZolam 1 MG TABLET PO PRN ×3 (00:30→17:40)
[2017-05-01] MEDS: MORPHINE SULFATE 4 MG/ML DISP.SYRIN. IV PRN ×6 (00:31→15:49)
[2017-05-01] MEDS: ALBUTEROL SULFATE 2.5 MG/3 ML NEBU. NEB SCH ×2 (03:19→20:00)
[2017-05-01] MEDS: HYDROcodone/APAP 10/325 1 TAB TABLET PO PRN ×3 (03:27→20:26)
--- NOTE | 2017-05-01 05:49 | ACF ---
Admission Forms Criteria COPD Clinical Indications for Admission to Inpatient Care (Place 'X' for any and all applicable criteria): Admission is indicated for ANY ONE of the following (1)(2)(3): [ X]I. Acute exacerbation by high-risk comorbidity (e.g., pneumonia, dysrhythmia, heart failure, pleural effusion, pneumothorax) or severe underlying COPD (e.g., steroid dependent) [ ]II. Inpatient admission required rather than observation care (see Chronic Obstructive Pulmonary Disease: Observation Care) because of ANY ONE of the following: [ ]a) New or pre-existing signs or symptoms of COPD (eg, dyspnea or Tachypnea at rest or with minimal activity) that persist despite outpatient and observation care treatment [ ]b) New-onset hypoxemia (room air SaO2 less than 90%, PO2 less than 60 mm Hg (8.0 kPa)) that persists despite outpatient and observation care treatment [ ]c) Worsening of pre-existing hypoxemia (eg, new or increased requirement for supplemental oxygen to maintain oxygenation at baseline level) that persists despite outpatient and observation care treatment, with oxygen treatment needs performable only in acute inpatient setting [ ]d) Hypercarbia (PCO2 greater than 40 mm Hg (5.3 kPa))-induced respiratory acidosis (pH less than 7.35) that persists despite outpatient and observation care treatment [ ]e) Supplemental oxygen or respiratory treatments for over 24 hours that are performable only in acute inpatient setting [ ]f) Chest tube placement with active evacuation (e.g., suction, drainage) (5) [ ]g) Other condition, treatment or monitoring requiring inpatient admission [ ]III. Planned invasive surgical or diagnostic procedures requiring acute- care hospitalization [ ]IV. Acute respiratory failure (e.g., uncompensated hypercarbia, severe hypoxemia) [ ]V. Severe comorbid condition (e.g., severe steroid myopathy, acute vertebral fracture) that has acutely worsened pulmonary function [ ]. Confusion state, lethargy, obtundation, stupor or coma Extended stay beyond goal length of stay may be needed for (31)(32): [ ]a ) Respiratory Failure. [ ]b) Severe or persisting hypoxemia or hypercarbia [ ]c) Severe or persistent dyspnea [ ]d) Comorbidities (e.g. chronic heart failure, atrial fibrillation with rapid response, pneumonia) [ ]e) Malnutrition The original [facility] content created by [facility] has been revised. The portions of the content which have been revised are identified through the use of italic text or in bold, and [facility] has neither reviewed nor approved the modified material. All other unmodified content is copyright [facility]. Please see references footnoted in the original [facility] edition 2016 Admission Criteria Met?: Yes SCOOTER DAS May 01, 2017 05:49
--- NOTE | 2017-05-01 06:04 | EKG ---
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
[2017-05-01 06:21] LABS: BASO % 0 % (0-3); EOS % 0 % (0-3); HEMATOCRIT 33.7 % (36.0-47.0); HEMOGLOBIN 11.6 g/dL (12.0-15.5); LYMPH # 0.5 x10^3/uL (1.0-4.8); LYMPH % 5 % (24-48); MEAN CORPUSCULAR HEMOGLOBIN 31 pg (25-35); MEAN CORPUSCULAR HGB CONC 34 g/dL (31-37); MEAN CORPUSCULAR VOLUME 91 fL (79-100); MONO % 6 % (0-9); NEUT % 89 % (31-73); PLATELET COUNT 338 x10^3/uL (140-400); RED CELL DISTRIBUTION WIDTH 14.5 % (11.5-14.5); WHITE BLOOD COUNT 10.9 x10^3/uL (4.0-11.0)
[2017-05-01 06:40] LABS: CALCIUM 8.9 mg/dL (8.5-10.1); CREATININE 0.7 mg/dL (0.6-1.0); GFR 85.9; POTASSIUM 4.6 mmol/L (3.5-5.1)
[2017-05-01] MEDS: IPRATRPIUM/ALBUTEROL 0.5/2.5MG 3 ML NEBU. NEB SCH ×6 (08:00→20:00)
[2017-05-01] MEDS: ROFLUMILAST 500 MCG TABLET. PO SCH (08:52)
[2017-05-01] MEDS: hydroCHLOROthiazide 12.5 MG CAPSULE PO SCH (08:52)
[2017-05-01] MEDS: NYSTATIN 100,000 UNITS/ML 5 ML ORAL.SUSP. SWSW SCH ×4 (08:52→20:13)
[2017-05-01] MEDS: LOSARTAN POTASSIUM 50 MG TABLET. PO SCH (08:52)
[2017-05-01] MEDS: DOXYCYCLINE HYCLATE 100 MG TABLET PO SCH ×2 (08:52→20:13)
[2017-05-01] MEDS: PANTOPRAZOLE 40 MG TABLET.DR. PO SCH (08:53)
[2017-05-01] MEDS: methylPREDNISolone SOD SUCC PF 40 MG/ML VIAL. IV SCH ×2 (08:53→22:24)
[2017-05-01] MEDS: PARoxetine 20 MG TABLET PO SCH (08:55)
[2017-05-01] MEDS: BUDESONIDE 0.5 MG/2 ML NEBU. NEB SCH ×2 (08:58→19:55)
--- NOTE | 2017-05-01 09:51 | PDOC2 ---
ISABEL MARADIAGA BULKER 05/01/17 0951: CARDIAC CONSULT DATE OF CONSULT Date of Consult DATE: 05/01/17 TIME: 09:40 REASON FOR CONSULT Reason for Consult: Chest Pain Tachycardia REFERRING PHYSICIAN Referring Physician: Dr. Arriola SOURCE Source: Chart review, Patient HISTORY OF PRESENT ILLNESS HISTORY OF PRESENT ILLNESS This is a 56 yo male who presented with complaints of shortness of breath, sore throat, and right ear pain. Patient recently hospitalized secondary to COPD. Develop thrush prior to discharge and has been dealing with since. Sore throat has progressively worsened despite nystatin. Reports breathing was improved for a couple of days following discharge but has progressively worsened since. Right ear pain developed within the last day or so. Reports not feeling well overall so she came into the ED for further evaluation and treatment. While in ED, developed chest pain. Located in her right chest and radiates around to her right side. Describes as constant and stabbing in nature. Worsened with deep breathing and with coughing. Associated with diaphoresis and nausea. Denies any palpitations, dizziness, orthopnea, or LE edema. PAST MEDICAL HISTORY Cardiovascular: HTN Pulmonary: COPD, Other (pulmonary nodules ) CENTRAL NERVOUS SYSTEM: Periperal neuropathy GI: Diverticulosis, GERD Heme/Onc: Cancer (cervical ) Psych: Anxiety, Depression Musculoskeletal: Osteoarthritis, Other (DJD) Infectious disease: Other ENT: Other (recent thrush) PAST SURGICAL HISTORY Past Surgical History: Cataract Removal, Tonsillectomy (and adenoidectomy ), Hysterectomy, Other (spinal fusion, knee sx) FAMILY HISTORY Family History: Hypertension SOCIAL HISTORY Smoke: Quit (6 years ago) ALCOHOL: none Drugs: None Lives: with Family CURRENT MEDICATIONS CURRENT MEDICATIONS Current Medications Medications (Trade) Dose Ordered Sig/Marian Route PRN Reason Start Time Stop Time Status Last Admin Dose Admin Albuterol/ Ipratropium (Duoneb) 3 ml 1X ONCE NEB 04/30/17 14:30 04/30/17 14:31 DC 04/30/17 14:41 Methylprednisolone Sodium Succinate (SOLU-Medrol 125MG VIAL) 125 mg 1X ONCE IV 04/30/17 14:30 04/30/17 14:31 DC 04/30/17 15:10 Fentanyl Citrate (Fentanyl 2ml Vial) 25 mcg PRN Q15MIN PRN IV PAIN GREATER THAN 3/10 04/30/17 15:15 05/01/17 15:14 8/6/17 15:10 Lidocaine HCl (Viscous Lidocaine) 15 ml 1X ONCE SWSW 04/30/17 16:45 04/30/17 16:46 DC 04/30/17 16:50 Nystatin 5 ml [id number] 04/30/17 17:00 04/30/17 18:30 DC 04/30/17 16:50 Sodium Chloride 1,000 ml @ 100 mls/hr 1X ONCE IV 04/30/17 17:00 05/01/17 02:59 DC 04/30/17 17:14 Albuterol/ Ipratropium (Duoneb) 3 ml RTQID NEB 04/30/17 20:00 05/01/17 19:59 05/01/17 08:14 Methylprednisolone Sodium Succinate (SOLU-Medrol 40MG VIAL) 40 mg Q12HR IV 04/30/17 21:00 05/01/17 08:53 Alprazolam (Xanax) 1 mg QIDPRN PRN PO ANXIETY 04/30/17 18:15 05/01/17 00:30 Guaifenesin (Mucinex) 600 mg BID PO 04/30/17 21:00 05/01/17 08:52 Acetaminophen/ Hydrocodone Bitart (Lortab 10/325) 1 tab PRN Q8HRS PRN PO PAIN 04/30/17 18:15 05/01/17 08:52 Albuterol/ Ipratropium (Duoneb) 3 ml RTQID NEB 04/30/17 20:00 05/01/17 08:00 Montelukast Sodium (Singulair) 10 mg QHS PO 04/30/17 21:00 04/30/17 21:49 Paroxetine HCl (Paxil) 20 mg DAILY PO 04/30/17 18:30 05/01/17 08:55 Roflumilast (Daliresp) 500 mcg DAILY PO 04/30/17 18:30 05/01/17 08:52 Doxycycline Hyclate (Vibra-Tab) 100 mg BID PO 04/30/17 21:00 05/01/17 08:52 Pantoprazole Sodium (Protonix) 40 mg DAILYAC PO 05/01/17 07:30 05/01/17 08:53 Losartan Potassium (Cozaar) 100 mg DAILY PO 04/30/17 20:00 05/01/17 08:52 Nystatin 5 ml [id number] [id number] 04/30/17 21:00 05/01/17 08:52 Promethazine HCl/ Codeine (Phenergan With Codeine) 5 ml PRN Q6HRS PRN PO COUGH 04/30/17 18:30 04/30/17 21:48 Budesonide (Pulmicort) 0.5 mg RTBID NEB 04/30/17 20:00 05/01/17 08:58 Morphine Sulfate 2 mg PRN Q2HR PRN IV PAIN 04/30/17 18:30 05/01/17 06:25 Albuterol Sulfate (Ventolin Neb Soln) 2.5 mg RTBID NEB 04/30/17 20:00 05/01/17 03:19 Hydrochlorothiazide (Microzide) 12.5 mg DAILY PO 04/30/17 20:00 05/01/17 08:52 Throat Lozenges (Chloraseptic) 1 spray PRN Q2HR PRN PO SORE THROAT 05/01/17 00:15 05/01/17 00:30 ALLERGIES ALLERGIES: Coded Allergies: amlodipine (Verified Allergy, Intermediate, Swelling, 04/21/17) pregabalin (Verified Allergy, Intermediate, both legs from knee down to feet swelled up, 04/21/17) ROS Review of System 14 point ROS conducted with pertinent positives noted above in HPI. PHYSICAL EXAM General: Alert, Oriented X3, Cooperative, mild distress HEENT: Atraumatic Lungs: Other (expiratory wheezes throughout ) Heart: Regular rate, Normal S1, Normal S2, No murmurs Abdomen: Soft, No tenderness Extremities: No edema, Normal pulses Skin: No breakdown, No significant lesion Neuro: Normal speech, Sensation intact Psych/Mental Status: Mental status NL, Mood NL MUSCULOSKELETAL: No joint tenderness VITALS VITALS Vital Signs Date Time Temp Pulse Resp B/P (MAP) Pulse Ox O2 Delivery O2 Flow Rate FiO2 05/01/17 09:02 97 Nasal Cannula 2.0 05/01/17 08:52 91 143/82 05/01/17 07:00 98.0 18 98.0 LABS Lab: Laboratory Tests Test 04/30/17 13:57 04/30/17 14:36 04/30/17 15:21 04/30/17 23:20 Urine Collection Type Unknown Urine Color Yellow Urine Clarity Clear Urine pH 8.0 Urine Specific [place] <=1.005 Urine Protein Negative mg/dL (NEG-TRACE) Urine Glucose (UA) Negative mg/dL (NEG) Urine Ketones (Stick) Negative mg/dL (NEG) Urine Blood Negative (NEG) Urine Nitrite Negative (NEG) Urine Bilirubin Negative (NEG) Urine Urobilinogen Dipstick 0.2 mg/dL (0.2 mg/dL) Urine Leukocyte Esterase Negative (NEG) Urine RBC 0 /HPF (0-2) Urine WBC 0 /HPF (0-4) Urine Squamous Epithelial Cells Few /LPF Urine Bacteria 0 /HPF (0-FEW) Urine Mucus Slight /LPF Sodium Level 139 mmol/L (136-145) Potassium Level 5.3 mmol/L (3.5-5.1) Chloride Level 98 mmol/L (98-107) Carbon Dioxide Level 35 mmol/L (21-32) Anion Gap 6 (6-14) Blood Urea Nitrogen 28 mg/dL (7-20) Creatinine 0.8 mg/dL (0.6-1.0) Estimated GFR (Cockcroft-Gault) 73.7 BUN/Creatinine Ratio 35 (6-20) Glucose Level 108 mg/dL (70-99) Calcium Level 9.9 mg/dL (8.5-10.1) Total Bilirubin 0.3 mg/dL (0.2-1.0) Aspartate Amino Transf (AST/SGOT) 21 U/L (15-37) Alanine Aminotransferase (ALT/SGPT) 153 U/L (14-59) Alkaline Phosphatase 61 U/L (46-116) Troponin I Quantitative < 0.017 ng/mL (0.000-0.055) < 0.017 ng/mL (0.000-0.055) EM-Tzy-M-Type Natriuretic Peptide 460 pg/mL (0-124) Total Protein 6.2 g/dL (6.4-8.2) Albumin 3.3 g/dL (3.4-5.0) Albumin/Globulin Ratio 1.1 (1.0-1.7) White Blood Count 10.5 x10^3/uL (4.0-11.0) Red Blood Count 3.78 x10^6/uL (3.50-5.40) Hemoglobin 11.8 g/dL (12.0-15.5) Hematocrit 35.0 % (36.0-47.0) Mean Corpuscular Volume 93 fL (79-100) Mean Corpuscular Hemoglobin 31 pg (25-35) Mean Corpuscular Hemoglobin Concent 34 g/dL (31-37) Red Cell Distribution Width 14.4 % (11.5-14.5) Platelet Count 337 x10^3/uL (140-400) Neutrophils (%) (Auto) 91 % (31-73) Lymphocytes (%) (Auto) 6 % (24-48) Monocytes (%) (Auto) 3 % (0-9) Eosinophils (%) (Auto) 0 % (0-3) Basophils (%) (Auto) 0 % (0-3) Neutrophils # (Auto) 9.6 x10^3uL (1.8-7.7) Lymphocytes # (Auto) 0.6 x10^3/uL (1.0-4.8) Monocytes # (Auto) 0.3 x10^3/uL (0.0-1.1) Eosinophils # (Auto) 0.0 x10^3/uL (0.0-0.7) Basophils # (Auto) 0.0 x10^3/uL (0.0-0.2) Test 05/01/17 03:35 05/01/17 05:35 White Blood Count 10.9 x10^3/uL (4.0-11.0) Red Blood Count 3.70 x10^6/uL (3.50-5.40) Hemoglobin 11.6 g/dL (12.0-15.5) Hematocrit 33.7 % (36.0-47.0) Mean Corpuscular Volume 91 fL (79-100) Mean Corpuscular Hemoglobin 31 pg (25-35) Mean Corpuscular Hemoglobin Concent 34 g/dL (31-37) Red Cell Distribution Width 14.5 % (11.5-14.5) Platelet Count 338 x10^3/uL (140-400) Neutrophils (%) (Auto) 89 % (31-73) Lymphocytes (%) (Auto) 5 % (24-48) Monocytes (%) (Auto) 6 % (0-9) Eosinophils (%) (Auto) 0 % (0-3) Basophils (%) (Auto) 0 % (0-3) Neutrophils # (Auto) 9.7 x10^3uL (1.8-7.7) Lymphocytes # (Auto) 0.5 x10^3/uL (1.0-4.8) Monocytes # (Auto) 0.7 x10^3/uL (0.0-1.1) Eosinophils # (Auto) 0.0 x10^3/uL (0.0-0.7) Basophils # (Auto) 0.0 x10^3/uL (0.0-0.2) Troponin I Quantitative < 0.017 ng/mL (0.000-0.055) Sodium Level 138 mmol/L (136-145) Potassium Level 4.6 mmol/L (3.5-5.1) Chloride Level 99 mmol/L (98-107) Carbon Dioxide Level 33 mmol/L (21-32) Anion Gap 6 (6-14) Blood Urea Nitrogen 29 mg/dL (7-20) Creatinine 0.7 mg/dL (0.6-1.0) Estimated GFR (Cockcroft-Gault) 85.9 Glucose Level 108 mg/dL (70-99) Calcium Level 8.9 mg/dL (8.5-10.1) ECHOCARDIOGRAM ECHOCARDIOGRAM <Conclusion> Left ventricle systolic function is normal. The Ejection Fraction is 65-70%. There is normal LV segmental wall motion. Doppler and Color Flow revealed trace to mild tricuspid regurgitation. The PA pressure was estimated at 32 mmHg. DATE: 04/24/17 1230 ASSESSMENT/PLAN ASSESSMENT/PLAN 1. Chest Pain, atypical. Troponin series normal, AMI ruled out. Pain very pleuritic in nature. Recent echo with preserved LV function, no WMA present. Continue supportive care. Could consider outpatient MPI if chest pain persist following resolution of acute issues. 2. Sinus tachycardia; likely reactive/secondary to ARF/AE COPD. Now resolved. No significant arrhythmias noted on telemetry 3. Acute on chronic respiratory failure with AE COPD. Steroids and nebs initiated. As per Pulm. 4. Hypertension; well-controlled with meds. Continue current therapy. 5. Thrush; continue nystatin as per PCP Problems: ROSEANN GARCIA MD 05/02/17 0820: CARDIAC CONSULT ALLERGIES ALLERGIES: Coded Allergies: amlodipine (Verified Allergy, Intermediate, Swelling, 04/21/17) pregabalin (Verified Allergy, Intermediate, both legs from knee down to feet swelled up, 04/21/17) ASSESSMENT/PLAN ASSESSMENT/PLAN Patient seen and examined 05/01/17. Agree with BATT MACHINE OPERATOR's assessment and plan. Acute resp failure secondary to acute COPD exacerbn CP atypical and pleuritic Recent echo showed normal LV function without any WMA Sinus tachycardia physiologic No further cardiac workup is indicated at this time Thank you for your consultation. Problems: ISABEL MARADIAGA APRN May 01, 2017 09:51 ROSEANN GARCIA MD May 02, 2017 08:20
--- NOTE | 2017-05-01 09:52 | EKG ---
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
[2017-05-01 10:22] LABS: PLT ESTIMATE ADEQUATE (ADEQUATE)
--- NOTE | 2017-05-01 14:14 | PDOC ---
Provider Note Provider Note dictated FABIENNE FARIAS MD May 01, 2017 14:14
--- NOTE | 2017-05-01 14:45 | CONS ---
DATE OF CONSULTATION: ATTENDING PHYSICIAN: Dr. Maryan Cesar. REASON FOR CONSULTATION: Dyspnea. HISTORY OF PRESENT ILLNESS: The patient is a 56-year-old female with history of chronic obstructive airway disease. She is on home oxygen at 2 liters on a p.r.n. basis. She has been followed by my partner, Dr. Victor for lung nodule as well. Her last CT was from March and at that time, there was 8 mm nodule in the right lower lobe, which was unchanged. The patient came into the hospital with complain of sore throat and then chest pain. She says she has tightness in both the lower rib cages. She had no significant cough. No leg edema, no headaches. No nausea, vomiting or diarrhea. Her chest x-ray was reviewed. There was no definite acute infiltrates. I have been asked to see for further evaluation. PAST MEDICAL HISTORY: History of COPD, hypertension and anxiety. PAST SURGICAL HISTORY: Cataract, hysterectomy, tonsillectomy, spinal fusion, lipoma removal and right knee and left elbow. REVIEW OF SYSTEMS: Twelve-point system obtained, pertinent positives discussed in my history of present illness, otherwise noncontributory. All systems that were negative were reviewed as well. ALLERGIES: AMLODIPINE AND PREGABALIN. SOCIAL HISTORY: Smoked for 40 years before quitting 6 years ago. MEDICATIONS: All reviewed as listed in the MRAD including steroids and nebulizer treatments. PHYSICAL EXAMINATION: GENERAL: She is awake, following commands. VITAL SIGNS: Blood pressure stable, pulse ox 97% on 2 liters. NECK: Supple. LUNGS: With bilateral expiratory wheezes. CARDIOVASCULAR: Regular rate. ABDOMEN: Soft. EXTREMITIES: With no pitting edema. LABORATORY DATA: Reviewed. Her white cell count 10.9, hemoglobin 11.6 and platelets 338. Chemistries show a BUN of 29 and a creatinine of 0.7. IMPRESSION: 1. Dyspnea with bilateral expiratory wheezes secondary to chronic obstructive pulmonary disease exacerbation. 2. Chest wall pain. I suspect this is atypical in most likely related to her coughing spell. However I will obtain a V/Q scan. 3. Hypoxia secondary to chronic obstructive pulmonary disease exacerbation. Normally she does not use oxygen on a regular basis at home. 4. History of stable lung nodule, being followed in our office by Dr. Victor. There was 8 mm in size in the right lower lobe and 0.6 mm in size in the right middle lobe. RECOMMENDATIONS: 1. Continue with present DuoNeb. 2. Continue with present oxygen with a slow wean. 3. Continue with IV steroids. 4. Obtain VQ scan. 5. Follow up in our office post-discharge for lung scan in 6 months. 6. We will follow along with you. FABIENNE FARIAS MD DR: REGLA/[place] JOB#: [id number] / [id number]
[2017-05-01] MEDS: ONDANSETRON ODT 4 MG TAB.RAPDIS. PO PRN (17:40)
--- NOTE | 2017-05-01 17:57 | PDOC1 ---
History and Physical Date of Admission Date of Admission DATE: 04/30/17 Identification/Chief Complaint Chief Complaint SOB Problems: Source Source: Chart review, Patient History of Present Illness History of Present Illness Patient is a 56 year old woman, history of COPD, hypertension, anxiety, who presents to the emergency department with a complaint of chest tightness, shortness of breath, sore throat, ear pain for the past several days. Patient states that she has been taking nystatin and doxycycline at home as directed by her primary care provider. States she has been using a respiratory treatments at home without relief. States that she has tightness underneath her chest, worsened with deep inspiration, which feels consistent with her previous episodes of COPD. She states that she currently is on a steroid taper, down to 20 mg prednisone 2 pills once daily. States she has been compliant with all of her medications, denies any nausea or vomiting, states that the pain is located in the right ear, she's been using drops that she got [id number] for pain , denies any hearing loss, any fevers or chills, any recent travel or procedures , any swelling extremities. Noted to be mildly wheezing and tachypnic , she recently was discharged home, she has been readmitted several times within 5 days of discharge and claims compliance in meds Past Medical History Cardiovascular: HTN Pulmonary: COPD, Other (pulmonary nodules ) CENTRAL NERVOUS SYSTEM: Periperal neuropathy GI: Diverticulosis, GERD Heme/Onc: Cancer (cervical ) Psych: Anxiety, Depression Musculoskeletal: Osteoarthritis, Other (DJD) Infectious disease: Other ENT: Other (recent thrush) Renal/: Urinary Incontinence Past Surgical History Past Surgical History: Cataract Removal, Tonsillectomy (and adenoidectomy ), Hysterectomy, Other (spinal fusion, knee sx) Family History Family History: Hypertension Social History Smoke: Quit (6 years ago) ALCOHOL: none Drugs: None Current Problem List Problem List Problems Medical Problems: (1) COPD (chronic obstructive pulmonary disease) Status: Acute Problems: Current Medications Current Medications Current Medications Albuterol/ Ipratropium (Duoneb) 3 ml 1X ONCE NEB Last administered on 14:41; Start 04/30/17 at 14:30; Stop 04/30/17 at 14:31; Status DC Methylprednisolone Sodium Succinate (SOLU-Medrol 125MG VIAL) 125 mg 1X ONCE IV Last administered on 04/30/17 15:10; Start 04/30/17 at 14:30; Stop 04/30/17 at 14:31; Status DC Fentanyl Citrate (Fentanyl 2ml Vial) 25 mcg PRN Q15MIN PRN IV PAIN GREATER THAN 3/10 Last administered on 04/30/17 15:10; Start 04/30/17 at 15:15; Stop 05/01 at 15:14; Status DC Lidocaine HCl (Viscous Lidocaine) 15 ml 1X ONCE SWSW Last administered on 16:50; Start 04/30/17 at 16:45; Stop 04/30/17 at 16:46; Status DC Nystatin 5 ml [id number] Last administered on 04/30/17 16:50; Start 04/30/17 at 17:00; Stop 04/30/17 at 18:30; Status DC Sodium Chloride 1,000 ml @ 100 mls/hr 1X ONCE IV Last administered on 17:14; Start 04/30/17 at 17:00; Stop 05/01/17 at 02:59; Status DC Ondansetron HCl (Zofran) 4 mg PRN Q8HRS PRN IV NAUSEA/VOMITING; Start 04/30/17 at 17:45; Stop 05/01/17 at 17:44; Status DC Acetaminophen (Tylenol) 650 mg PRN Q4HRS PRN PO FEVER; Start 04/30/17 at 17:45; Stop 05/01/17 at 17:44; Status DC Albuterol/ Ipratropium (Duoneb) 3 ml RTQID NEB Last administered on 05/01/17 12 :02; Start 04/30/17 at 20:00; Stop 05/01/17 at 15:07; Status DC Methylprednisolone Sodium Succinate (SOLU-Medrol 40MG VIAL) 40 mg Q12HR IV Last administered on 05/01/17 08:53; Start 04/30/17 at 21:00 Nitroglycerin (Nitrostat) 0.4 mg STK-MED ONCE SL ; Start 04/30/17 at 18:11; Stop 04/30/17 at 18:12; Status DC Ketorolac Tromethamine (Toradol) 15 mg PRN Q6HRS PRN IV PAIN; Start 04/30/17 at 18:15; Stop 05/05/17 at 18:14 Acetaminophen/ Codeine Phosphate (Tylenol #3) 1 tab PRN Q6HRS PRN PO PAIN; Start 04/30/17 at 18:15 Alprazolam (Xanax) 1 mg QIDPRN PRN PO ANXIETY Last administered on 05/01/17 17: 40; Start 04/30/17 at 18:15 Guaifenesin (Mucinex) 600 mg BID PO Last administered on 05/01/17 08:52; Start 04/30/17 at 21:00 Acetaminophen/ Hydrocodone Bitart (Lortab 10/325) 1 tab PRN Q8HRS PRN PO PAIN Last administered on 05/01/17 08:52; Start 04/30/17 at 18:15 Albuterol/ Ipratropium (Duoneb) 3 ml RTQID NEB Last administered on 05/01/17 15 :42; Start 04/30/17 at 20:00 Montelukast Sodium (Singulair) 10 mg QHS PO Last administered on 04/30/17 21:49 ; Start 04/30/17 at 21:00 Paroxetine HCl (Paxil) 20 mg DAILY PO Last administered on 05/01/17 08:55; Start 04/30/17 at 18:30 Roflumilast (Daliresp) 500 mcg DAILY PO Last administered on 05/01/17 08:52; Start 04/30/17 at 18:30 Non-Formulary Medication 1 puff PRN Q6HRS PRN INH SHORTNESS OF BREATH; Start at 18:15; Status UNV Albuterol Sulfate (Ventolin Neb Soln) 2.5 mg PRN Q4HRS PRN NEB SOA; Start at 18:30 Doxycycline Hyclate (Vibra-Tab) 100 mg BID PO Last administered on 05/01/17 08: 52; Start 04/30/17 at 21:00 Pantoprazole Sodium (Protonix) 40 mg DAILYAC PO Last administered on 05/01/17 08:53; Start 05/01/17 at 07:30 Losartan Potassium (Cozaar) 100 mg DAILY PO Last administered on 05/01/17 08:52 ; Start 04/30/17 at 20:00 Nystatin 5 ml [id number] Last administered on 05/01/17 17:38; Start 04/30/17 at 21:00 Ondansetron HCl (Zofran Odt) 4 mg PRN Q8HRS PRN PO NAUSEA Last administered on 05/01/17 17:40; Start 04/30/17 at 18:30 Promethazine HCl/ Codeine (Phenergan With Codeine) 5 ml PRN Q6HRS PRN PO COUGH Last administered on 04/30/17 21:48; Start 04/30/17 at 18:30 Budesonide (Pulmicort) 0.5 mg RTBID NEB Last administered on 05/01/17 08:58; Start 04/30/17 at 20:00 Morphine Sulfate 2 mg PRN Q2HR PRN IV PAIN; Start 04/30/17 at 18:30; Stop at 18:30; Status DC Morphine Sulfate 2 mg 1X ONCE IV ; Start 04/30/17 at 18:30; Stop 04/30/17 at 18: 30; Status DC Morphine Sulfate 2 mg 1X ONCE IV ; Start 04/30/17 at 18:30; Stop 04/30/17 at 18: 31; Status DC Morphine Sulfate 2 mg PRN Q2HR PRN IV PAIN Last administered on 05/01/17 15:49 ; Start 04/30/17 at 18:30 Albuterol Sulfate (Ventolin Neb Soln) 2.5 mg RTBID NEB Last administered on 05/01 03:19; Start 04/30/17 at 20:00 Hydrochlorothiazide (Microzide) 12.5 mg DAILY PO Last administered on 05/01/17 08:52; Start 04/30/17 at 20:00 Throat Lozenges (Chloraseptic) 1 spray PRN Q2HR PRN PO SORE THROAT Last administered on 05/01/17 00:30; Start 05/01/17 at 00:15 Active Scripts Active Nystatin 100,000 Unit/1 Ml Oral.susp 5 Ml SWSW [id number] 10 Days Doxycycline Hyclate 100 Mg Tablet.dr 1 Tab PO BID Prednisone 20 Mg Tablet 20 Mg PO 3X3DAY THEN 2X3DAY T 9 Days Prometh-Codein 6.25-10 mg/5 ml (Promethazine HCl/Codeine) 5 Ml Syrup 5 Ml PO QID 10 Days Proair Hfa Inhaler (Albuterol Sulfate) 8.5 Gm Hfa.aer.ad 1 Puff INH PRN Q6HRS PRN Acetaminophen-Cod #3 Tablet (Acetaminophen/Codeine Phosphate) 1 Each Tablet 1 Tab PO PRN Q6HRS PRN 2 Days Hydrocodone-Apap 10-325 (Hydrocodone Bit/Acetaminophen) 1 Each Tablet 1 Tab PO PRN Q8HRS PRN 14 Days Xanax (Alprazolam) 1 Mg Tablet 1 Tab PO QIDPRN PRN Zofran (Ondansetron Hcl) 8 Mg Tablet 1 Tab PO Q8HRS PRN Paroxetine Hcl 20 Mg Tablet 20 Mg PO DAILY 30 Days Montelukast Sodium Tablet (Montelukast Sodium) 10 Mg Tablet 10 Mg PO QHS 30 Days Mucinex (Guaifenesin) 600 Mg Tablet.er 600 Mg PO BID 30 Days Duoneb 0.5-3(2.5) Mg/3 Ml (Albuterol/Ipratropium) 3 Ml Ampul.neb 3 Ml NEB RTQID 30 Days Reported Losartan-Hctz 100-12.5 Mg Tab (Losartan/Hydrochlorothiazide) 1 Each Tablet 1 Each PO DAILY Zyrtec (Cetirizine Hcl) 10 Mg Capsule 10 Mg PO Probiotic (Lactobacillus Acidophilus) 1 Each Capsule 1 Each PO Anoro Ellipta 62.5-25 Mcg Inh (Umeclidinium Brm/Vilanterol Tr) 1 Each Disk.w.dev 1 Each IH DAILY Ventolin Hfa Inhaler (Albuterol Sulfate) 18 Gm Hfa.aer.ad 2 Puff INH PRN Q4HRS PRN Nexium Capsule (Esomeprazole Magnesium) 20 Mg Capsule.dr 2 Cap PO DAILY Daliresp (Roflumilast) 500 Mcg Tablet 1 Tab PO DAILY Allergies Allergies: Coded Allergies: amlodipine (Verified Allergy, Intermediate, Swelling, 04/21/17) pregabalin (Verified Allergy, Intermediate, both legs from knee down to feet swelled up, 04/21/17) ROS General: YES: Fatigue PSYCHOLOGICAL ROS: YES: Anxiety HEENT: YES: Sore Throat Respiratory: YES: Shortness of breath, Tachypnea, Wheezing Cardiovascular: yes Chest Pain Physical Exam General: Alert, Oriented X3 HEENT: Atraumatic, PERRLA Lungs: Other (decrease air movement and wheezes) Heart: RRR Abdomen: Normal bowel sounds, Other (mildly bloated) Extremities: No clubbing, No cyanosis Skin: No rashes Neuro: Normal gait, Normal speech, Strength at 5/5 X4 ext Psych/Mental Status: Mental status NL Vitals Vitals Vital Signs Date Time Temp Pulse Resp B/P (MAP) Pulse Ox O2 Delivery O2 Flow Rate FiO2 05/01/17 15:51 98.9 90 24 121/49 (73) 97 Nasal Cannula 2.0 98.9 Labs Labs Laboratory Tests Test 04/30/17 13:57 04/30/17 14:36 04/30/17 15:21 04/30/17 23:20 Urine Collection Type Unknown Urine Color Yellow Urine Clarity Clear Urine pH 8.0 Urine Specific [place] <=1.005 Urine Protein Negative mg/dL (NEG-TRACE) Urine Glucose (UA) Negative mg/dL (NEG) Urine Ketones (Stick) Negative mg/dL (NEG) Urine Blood Negative (NEG) Urine Nitrite Negative (NEG) Urine Bilirubin Negative (NEG) Urine Urobilinogen Dipstick 0.2 mg/dL (0.2 mg/dL) Urine Leukocyte Esterase Negative (NEG) Urine RBC 0 /HPF (0-2) Urine WBC 0 /HPF (0-4) Urine Squamous Epithelial Cells Few /LPF Urine Bacteria 0 /HPF (0-FEW) Urine Mucus Slight /LPF Sodium Level 139 mmol/L (136-145) Potassium Level 5.3 mmol/L (3.5-5.1) Chloride Level 98 mmol/L (98-107) Carbon Dioxide Level 35 mmol/L (21-32) Anion Gap 6 (6-14) Blood Urea Nitrogen 28 mg/dL (7-20) Creatinine 0.8 mg/dL (0.6-1.0) Estimated GFR (Cockcroft-Gault) 73.7 BUN/Creatinine Ratio 35 (6-20) Glucose Level 108 mg/dL (70-99) Calcium Level 9.9 mg/dL (8.5-10.1) Total Bilirubin 0.3 mg/dL (0.2-1.0) Aspartate Amino Transf (AST/SGOT) 21 U/L (15-37) Alanine Aminotransferase (ALT/SGPT) 153 U/L (14-59) Alkaline Phosphatase 61 U/L (46-116) Troponin I Quantitative < 0.017 ng/mL (0.000-0.055) < 0.017 ng/mL (0.000-0.055) CD-Fip-C-Type Natriuretic Peptide 460 pg/mL (0-124) Total Protein 6.2 g/dL (6.4-8.2) Albumin 3.3 g/dL (3.4-5.0) Albumin/Globulin Ratio 1.1 (1.0-1.7) White Blood Count 10.5 x10^3/uL (4.0-11.0) Red Blood Count 3.78 x10^6/uL (3.50-5.40) Hemoglobin 11.8 g/dL (12.0-15.5) Hematocrit 35.0 % (36.0-47.0) Mean Corpuscular Volume 93 fL (79-100) Mean Corpuscular Hemoglobin 31 pg (25-35) Mean Corpuscular Hemoglobin Concent 34 g/dL (31-37) Red Cell Distribution Width 14.4 % (11.5-14.5) Platelet Count 337 x10^3/uL (140-400) Neutrophils (%) (Auto) 91 % (31-73) Lymphocytes (%) (Auto) 6 % (24-48) Monocytes (%) (Auto) 3 % (0-9) Eosinophils (%) (Auto) 0 % (0-3) Basophils (%) (Auto) 0 % (0-3) Neutrophils # (Auto) 9.6 x10^3uL (1.8-7.7) Lymphocytes # (Auto) 0.6 x10^3/uL (1.0-4.8) Monocytes # (Auto) 0.3 x10^3/uL (0.0-1.1) Eosinophils # (Auto) 0.0 x10^3/uL (0.0-0.7) Basophils # (Auto) 0.0 x10^3/uL (0.0-0.2) Test 05/01/17 03:35 05/01/17 05:35 White Blood Count 10.9 x10^3/uL (4.0-11.0) Red Blood Count 3.70 x10^6/uL (3.50-5.40) Hemoglobin 11.6 g/dL (12.0-15.5) Hematocrit 33.7 % (36.0-47.0) Mean Corpuscular Volume 91 fL (79-100) Mean Corpuscular Hemoglobin 31 pg (25-35) Mean Corpuscular Hemoglobin Concent 34 g/dL (31-37) Red Cell Distribution Width 14.5 % (11.5-14.5) Platelet Count 338 x10^3/uL (140-400) Neutrophils (%) (Auto) 89 % (31-73) Lymphocytes (%) (Auto) 5 % (24-48) Monocytes (%) (Auto) 6 % (0-9) Eosinophils (%) (Auto) 0 % (0-3) Basophils (%) (Auto) 0 % (0-3) Neutrophils # (Auto) 9.7 x10^3uL (1.8-7.7) Lymphocytes # (Auto) 0.5 x10^3/uL (1.0-4.8) Monocytes # (Auto) 0.7 x10^3/uL (0.0-1.1) Eosinophils # (Auto) 0.0 x10^3/uL (0.0-0.7) Basophils # (Auto) 0.0 x10^3/uL (0.0-0.2) Segmented Neutrophils % 87 % (35-66) Band Neutrophils % 5 % (0-9) Lymphocytes % 4 % (24-48) Monocytes % 4 % (0-10) Platelet Estimate Adequate (ADEQUATE) Troponin I Quantitative < 0.017 ng/mL (0.000-0.055) Sodium Level 138 mmol/L (136-145) Potassium Level 4.6 mmol/L (3.5-5.1) Chloride Level 99 mmol/L (98-107) Carbon Dioxide Level 33 mmol/L (21-32) Anion Gap 6 (6-14) Blood Urea Nitrogen 29 mg/dL (7-20) Creatinine 0.7 mg/dL (0.6-1.0) Estimated GFR (Cockcroft-Gault) 85.9 Glucose Level 108 mg/dL (70-99) Calcium Level 8.9 mg/dL (8.5-10.1) Laboratory Tests Test 04/30/17 23:20 05/01/17 03:35 05/01/17 05:35 Troponin I Quantitative < 0.017 ng/mL (0.000-0.055) < 0.017 ng/mL (0.000-0.055) White Blood Count 10.9 x10^3/uL (4.0-11.0) Red Blood Count 3.70 x10^6/uL (3.50-5.40) Hemoglobin 11.6 g/dL (12.0-15.5) Hematocrit 33.7 % (36.0-47.0) Mean Corpuscular Volume 91 fL (79-100) Mean Corpuscular Hemoglobin 31 pg (25-35) Mean Corpuscular Hemoglobin Concent 34 g/dL (31-37) Red Cell Distribution Width 14.5 % (11.5-14.5) Platelet Count 338 x10^3/uL (140-400) Neutrophils (%) (Auto) 89 % (31-73) Lymphocytes (%) (Auto) 5 % (24-48) Monocytes (%) (Auto) 6 % (0-9) Eosinophils (%) (Auto) 0 % (0-3) Basophils (%) (Auto) 0 % (0-3) Neutrophils # (Auto) 9.7 x10^3uL (1.8-7.7) Lymphocytes # (Auto) 0.5 x10^3/uL (1.0-4.8) Monocytes # (Auto) 0.7 x10^3/uL (0.0-1.1) Eosinophils # (Auto) 0.0 x10^3/uL (0.0-0.7) Basophils # (Auto) 0.0 x10^3/uL (0.0-0.2) Segmented Neutrophils % 87 % (35-66) Band Neutrophils % 5 % (0-9) Lymphocytes % 4 % (24-48) Monocytes % 4 % (0-10) Platelet Estimate Adequate (ADEQUATE) Sodium Level 138 mmol/L (136-145) Potassium Level 4.6 mmol/L (3.5-5.1) Chloride Level 99 mmol/L (98-107) Carbon Dioxide Level 33 mmol/L (21-32) Anion Gap 6 (6-14) Blood Urea Nitrogen 29 mg/dL (7-20) Creatinine 0.7 mg/dL (0.6-1.0) Estimated GFR (Cockcroft-Gault) 85.9 Glucose Level 108 mg/dL (70-99) Calcium Level 8.9 mg/dL (8.5-10.1) VTE Prophylaxis Ordered VTE Prophylaxis Devices: No VTE Pharmacological Prophylaxi: Yes Assessment/Plan Assessment/Plan 1-COPD exacerbation 2-atypical chest pain 3.HTN 4.DJD osteoarthritis FRANCES METZGER MD May 01, 2017 17:57
[2017-05-01] MEDS: MONTELUKAST SODIUM 10 MG TABLET. PO SCH (20:13)
[2017-05-01] MEDS: PROMETH/CODEINE 6.25/10MG 5 ML SYRUP. PO PRN (20:58)
[2017-05-01] MEDS: KETOROLAC 15 MG/ML VIAL. IV PRN (22:24)
[2017-05-01] MEDS: POTASSIUM CHLORIDE IV SCH (22:34)
[2017-05-01] MEDS: NORMAL SALINE IV SCH (22:34)
[2017-05-02] MEDS: ALBUTEROL SULFATE 2.5 MG/3 ML NEBU. NEB PRN (00:34)
[2017-05-02 03:00] VITALS: BP 104/71
[2017-05-02] MEDS: KETOROLAC 15 MG/ML VIAL. IV PRN ×3 (04:29→21:25)
[2017-05-02 07:00] VITALS: BP 123/67
[2017-05-02] MEDS: IPRATRPIUM/ALBUTEROL 0.5/2.5MG 3 ML NEBU. NEB SCH ×4 (07:57→19:47)
[2017-05-02] MEDS: BUDESONIDE 0.5 MG/2 ML NEBU. NEB SCH ×2 (08:00→19:47)
[2017-05-02] MEDS ORDERED: PROMETHAZINE 12.5 MG in IV NORMAL SALINE 50ML 50 ML IV PRN (09:15)
--- NOTE | 2017-05-02 09:17 | PDOC ---
SUBJECTIVE Subjective not feeling good, nausea feels about to throw up, some pain OBJECTIVE Vital Signs Vital Signs Date Time Temp Pulse Resp B/P (MAP) Pulse Ox O2 Delivery O2 Flow Rate FiO2 05/02/17 08:00 100 Room Air 05/02/17 07:59 100 Room Air 05/02/17 07:00 97.8 73 18 123/67 (85) 94 Room Air 97.8 05/02/17 03:00 98.1 84 16 104/71 (82) 93 98.1 05/02/17 00:34 Nasal Cannula 2.0 05/01/17 23:00 98.0 91 18 120/62 (81) 99 98.0 05/01/17 21:26 Nasal Cannula 2.0 05/01/17 20:26 Nasal Cannula 2.0 05/01/17 20:00 Nasal Cannula 2.0 05/01/17 19:59 95 Nasal Cannula 2.0 05/01/17 19:56 94 Nasal Cannula 2.0 05/01/17 19:00 97.0 95 18 103/64 (77) 100 97.0 05/01/17 15:51 98.9 90 24 121/49 (73) 97 Nasal Cannula 2.0 98.9 05/01/17 15:49 Room Air 05/01/17 15:43 Nasal Cannula 2.0 05/01/17 14:39 98.6 95 20 120/65 (83) 95 Room Air 98.6 05/01/17 13:35 2 Nasal Cannula 05/01/17 13:05 Room Air 05/01/17 12:03 97 Nasal Cannula 2.0 05/01/17 10:53 3 Nasal Cannula 05/01/17 10:44 97.7 94 22 116/68 (84) 100 Nasal Cannula 2.0 97.7 I & O Intake and Output 05/02/17 07:00 Intake Total 600 ml Output Total 1003 ml Balance -403 ml Intake Oral 600 ml Output Urine Total 1000 ml Stool Total 3 ml # Voids 2 PHYSICAL EXAM Physical Exam upper airway wheezing, few scattered lung wheezing heart RRR abd mild bloating ext no edema ASSESSMENT/PLAN Assessment/Plan nausea today will add phenergan to Zofran , already on protonix , check lab today, hydrating, continue steroids and bronchdilators Problems: FRANCES METZGER MD May 02, 2017 09:17
[2017-05-02] MEDS: NORMAL SALINE IV SCH ×2 (09:24→22:48)
[2017-05-02] MEDS: POTASSIUM CHLORIDE IV SCH ×2 (09:24→22:48)
--- NOTE | 2017-05-02 09:39 | PDOC ---
PULMONARY PROGRESS NOTES Subjective CW PAIN RESOLVED PT DID REFUSED VQ, DID NOT FEEL LIKE SHE COULD DO IT Vitals Vital Signs Date Time Temp Pulse Resp B/P (MAP) Pulse Ox O2 Delivery O2 Flow Rate FiO2 05/02/17 08:00 100 Room Air 05/02/17 07:00 97.8 73 18 123/67 (85) 97.8 05/02/17 00:34 2.0 General: Alert, No acute distress HEENT: Other Lungs: Wheezing (bilateral) Cardiovascular: S1, S2 Abdomen: Soft, Non-tender Neuro Exam: Alert Extremities: No Edema Skin: Warm Labs Laboratory Tests Test 04/30/17 13:57 04/30/17 14:36 04/30/17 15:21 04/30/17 23:20 Urine Collection Type Unknown Urine Color Yellow Urine Clarity Clear Urine pH 8.0 Urine Specific [place] <=1.005 Urine Protein Negative mg/dL (NEG-TRACE) Urine Glucose (UA) Negative mg/dL (NEG) Urine Ketones (Stick) Negative mg/dL (NEG) Urine Blood Negative (NEG) Urine Nitrite Negative (NEG) Urine Bilirubin Negative (NEG) Urine Urobilinogen Dipstick 0.2 mg/dL (0.2 mg/dL) Urine Leukocyte Esterase Negative (NEG) Urine RBC 0 /HPF (0-2) Urine WBC 0 /HPF (0-4) Urine Squamous Epithelial Cells Few /LPF Urine Bacteria 0 /HPF (0-FEW) Urine Mucus Slight /LPF Sodium Level 139 mmol/L (136-145) Potassium Level 5.3 mmol/L (3.5-5.1) Chloride Level 98 mmol/L (98-107) Carbon Dioxide Level 35 mmol/L (21-32) Anion Gap 6 (6-14) Blood Urea Nitrogen 28 mg/dL (7-20) Creatinine 0.8 mg/dL (0.6-1.0) Estimated GFR (Cockcroft-Gault) 73.7 BUN/Creatinine Ratio 35 (6-20) Glucose Level 108 mg/dL (70-99) Calcium Level 9.9 mg/dL (8.5-10.1) Total Bilirubin 0.3 mg/dL (0.2-1.0) Aspartate Amino Transf (AST/SGOT) 21 U/L (15-37) Alanine Aminotransferase (ALT/SGPT) 153 U/L (14-59) Alkaline Phosphatase 61 U/L (46-116) Troponin I Quantitative < 0.017 ng/mL (0.000-0.055) < 0.017 ng/mL (0.000-0.055) YV-Cte-S-Type Natriuretic Peptide 460 pg/mL (0-124) Total Protein 6.2 g/dL (6.4-8.2) Albumin 3.3 g/dL (3.4-5.0) Albumin/Globulin Ratio 1.1 (1.0-1.7) White Blood Count 10.5 x10^3/uL (4.0-11.0) Red Blood Count 3.78 x10^6/uL (3.50-5.40) Hemoglobin 11.8 g/dL (12.0-15.5) Hematocrit 35.0 % (36.0-47.0) Mean Corpuscular Volume 93 fL (79-100) Mean Corpuscular Hemoglobin 31 pg (25-35) Mean Corpuscular Hemoglobin Concent 34 g/dL (31-37) Red Cell Distribution Width 14.4 % (11.5-14.5) Platelet Count 337 x10^3/uL (140-400) Neutrophils (%) (Auto) 91 % (31-73) Lymphocytes (%) (Auto) 6 % (24-48) Monocytes (%) (Auto) 3 % (0-9) Eosinophils (%) (Auto) 0 % (0-3) Basophils (%) (Auto) 0 % (0-3) Neutrophils # (Auto) 9.6 x10^3uL (1.8-7.7) Lymphocytes # (Auto) 0.6 x10^3/uL (1.0-4.8) Monocytes # (Auto) 0.3 x10^3/uL (0.0-1.1) Eosinophils # (Auto) 0.0 x10^3/uL (0.0-0.7) Basophils # (Auto) 0.0 x10^3/uL (0.0-0.2) Test 05/01/17 03:35 05/01/17 05:35 White Blood Count 10.9 x10^3/uL (4.0-11.0) Red Blood Count 3.70 x10^6/uL (3.50-5.40) Hemoglobin 11.6 g/dL (12.0-15.5) Hematocrit 33.7 % (36.0-47.0) Mean Corpuscular Volume 91 fL (79-100) Mean Corpuscular Hemoglobin 31 pg (25-35) Mean Corpuscular Hemoglobin Concent 34 g/dL (31-37) Red Cell Distribution Width 14.5 % (11.5-14.5) Platelet Count 338 x10^3/uL (140-400) Neutrophils (%) (Auto) 89 % (31-73) Lymphocytes (%) (Auto) 5 % (24-48) Monocytes (%) (Auto) 6 % (0-9) Eosinophils (%) (Auto) 0 % (0-3) Basophils (%) (Auto) 0 % (0-3) Neutrophils # (Auto) 9.7 x10^3uL (1.8-7.7) Lymphocytes # (Auto) 0.5 x10^3/uL (1.0-4.8) Monocytes # (Auto) 0.7 x10^3/uL (0.0-1.1) Eosinophils # (Auto) 0.0 x10^3/uL (0.0-0.7) Basophils # (Auto) 0.0 x10^3/uL (0.0-0.2) Segmented Neutrophils % 87 % (35-66) Band Neutrophils % 5 % (0-9) Lymphocytes % 4 % (24-48) Monocytes % 4 % (0-10) Platelet Estimate Adequate (ADEQUATE) Troponin I Quantitative < 0.017 ng/mL (0.000-0.055) Sodium Level 138 mmol/L (136-145) Potassium Level 4.6 mmol/L (3.5-5.1) Chloride Level 99 mmol/L (98-107) Carbon Dioxide Level 33 mmol/L (21-32) Anion Gap 6 (6-14) Blood Urea Nitrogen 29 mg/dL (7-20) Creatinine 0.7 mg/dL (0.6-1.0) Estimated GFR (Cockcroft-Gault) 85.9 Glucose Level 108 mg/dL (70-99) Calcium Level 8.9 mg/dL (8.5-10.1) Medications Active Scripts Medications Dose Route/Sig Max Daily Dose Days Date Category Nystatin 100,000 Unit/1 Ml Oral.susp 5 Ml SWSW [id number] 10 04/25/17 Rx Doxycycline Hyclate 100 Mg Tablet.dr 1 Tab PO BID 04/25/17 Rx Prednisone 20 Mg Tablet 20 Mg PO 3X3DAY THEN 2X3DAY T 9 04/25/17 Rx Prometh-Codein 6.25-10 mg/5 ml (Promethazine HCl/Codeine) 5 Ml Syrup 5 Ml PO QID 10 04/25/17 Rx Proair Hfa Inhaler (Albuterol Sulfate) 8.5 Gm Hfa.aer.ad 1 Puff INH PRN Q6HRS PRN 04/21/17 Rx Acetaminophen-Cod #3 Tablet (Acetaminophen/Codeine Phosphate) 1 Each Tablet 1 Tab PO PRN Q6HRS PRN 2 04/20/17 Rx Hydrocodone-Apap 10-325 (Hydrocodone Bit/Acetaminophen) 1 Each Tablet 1 Tab PO PRN Q8HRS PRN 14 04/18/17 Rx Xanax (Alprazolam) 1 Mg Tablet 1 Tab PO QIDPRN PRN 04/18/17 Rx Losartan-Hctz 100-12.5 Mg Tab (Losartan/Hydrochlorothiazide) 1 Each Tablet 1 Each PO DAILY 04/15/17 Reported Zyrtec (Cetirizine Hcl) 10 Mg Capsule 10 Mg PO 04/15/17 Reported Probiotic (Lactobacillus Acidophilus) 1 Each Capsule 1 Each PO 04/15/17 Reported Zofran (Ondansetron Hcl) 8 Mg Tablet 1 Tab PO Q8HRS PRN 07/14/16 Rx Paroxetine Hcl 20 Mg Tablet 20 Mg PO DAILY 30 06/27/16 Rx Montelukast Sodium Tablet (Montelukast Sodium) 10 Mg Tablet 10 Mg PO QHS 30 06/27/16 Rx Mucinex (Guaifenesin) 600 Mg Tablet.er 600 Mg PO BID 30 06/27/16 Rx Anoro Ellipta 62.5-25 Mcg Inh (Umeclidinium Brm/Vilanterol Tr) 1 Each Disk.w.dev 1 Each IH DAILY 06/06/16 Reported Duoneb 0.5-3(2.5) Mg/3 Ml (Albuterol/Ipratropium) 3 Ml Ampul.neb 3 Ml NEB RTQID 30 03/19/16 Rx Ventolin Hfa Inhaler (Albuterol Sulfate) 18 Gm Hfa.aer.ad 2 Puff INH PRN Q4HRS PRN 03/14/16 Reported Nexium Capsule (Esomeprazole Magnesium) 20 Mg Capsule. 2 Cap PO DAILY 03/14/16 Reported Daliresp (Roflumilast) 500 Mcg Tablet 1 Tab PO DAILY 03/14/16 Reported Impression . 1. Dyspnea with bilateral expiratory wheezes secondary to chronic obstructive pulmonary disease exacerbation. 2. Chest wall pain. I suspect this is atypical in most likely related to her coughing spell. CP resolved. will cancel V/Q scan. 3. Hypoxia secondary to chronic obstructive pulmonary disease exacerbation. Normally she does not use oxygen on a regular basis at home. 4. History of stable lung nodule, being followed in our office by Dr. Victor. There was 8 mm in size in the right lower lobe and 0.6 mm in size in the right middle lobe. Plan . 1. Continue with present DuoNeb. 2. Continue with present oxygen with a slow wean. 3. Continue with IV steroids. 4. cancel VQ scan. 5. Follow up in our office post-discharge for lung scan in 6 months. FABIENNE FARIAS MD May 02, 2017 09:38
[2017-05-02 09:43] LABS: BASO % 1 % (0-3); EOS % 0 % (0-3); HEMATOCRIT 34.2 % (36.0-47.0); HEMOGLOBIN 11.8 g/dL (12.0-15.5); LYMPH # 0.7 x10^3/uL (1.0-4.8); LYMPH % 8 % (24-48); MEAN CORPUSCULAR HEMOGLOBIN 31 pg (25-35); MEAN CORPUSCULAR HGB CONC 34 g/dL (31-37); MEAN CORPUSCULAR VOLUME 91 fL (79-100); MONO % 8 % (0-9); NEUT % 84 % (31-73); PLATELET COUNT 297 x10^3/uL (140-400); RED BLOOD COUNT 3.76 x10^6/uL (3.50-5.40); RED CELL DISTRIBUTION WIDTH 14.7 % (11.5-14.5); WHITE BLOOD COUNT 8.6 x10^3/uL (4.0-11.0)
[2017-05-02] MEDS: ONDANSETRON ODT 4 MG TAB.RAPDIS. PO PRN ×2 (09:58→17:30)
[2017-05-02] MEDS: NYSTATIN 100,000 UNITS/ML 5 ML ORAL.SUSP. SWSW SCH ×4 (09:58→21:24)
[2017-05-02] MEDS: PANTOPRAZOLE 40 MG TABLET.DR. PO SCH (09:59)
[2017-05-02] MEDS: DOXYCYCLINE HYCLATE 100 MG TABLET PO SCH ×2 (09:59→21:24)
[2017-05-02] MEDS: ROFLUMILAST 500 MCG TABLET. PO SCH (10:00)
[2017-05-02] MEDS: hydroCHLOROthiazide 12.5 MG CAPSULE PO SCH (10:00)
[2017-05-02] MEDS: PARoxetine 20 MG TABLET PO SCH (10:00)
[2017-05-02] MEDS: LOSARTAN POTASSIUM 50 MG TABLET. PO SCH (10:00)
[2017-05-02] MEDS: DOCUSATE SODIUM 100 MG CAPSULE. PO SCH (10:04)
[2017-05-02] MEDS: PROMETH/CODEINE 6.25/10MG 5 ML SYRUP. PO PRN ×2 (10:04→21:24)
[2017-05-02] MEDS: ALPRAZolam 1 MG TABLET PO PRN ×2 (10:04→21:24)
[2017-05-02 10:05] LABS: CREATININE 0.8 mg/dL (0.6-1.0); GFR 73.7; POTASSIUM 4.4 mmol/L (3.5-5.1)
[2017-05-02 10:44] VITALS: BP 109/61
[2017-05-02] MEDS: methylPREDNISolone SOD SUCC PF 125 MG/2 ML VIAL. IV SCH ×2 (13:32→21:25)
[2017-05-02] MEDS: POLYETHYLENE GLYCOL 3350 17 GM PACKET. PO SCH (14:10)
[2017-05-02 15:00] VITALS: BP 107/66
[2017-05-02] MEDS: HYDROcodone/APAP 10/325 1 TAB TABLET PO PRN ×2 (17:29→21:24)
[2017-05-02 19:00] VITALS: BP 121/68
[2017-05-02] MEDS: MONTELUKAST SODIUM 10 MG TABLET. PO SCH (21:24)
[2017-05-02 23:00] VITALS: BP 91/54
[2017-05-03] MEDS: HYDROcodone/APAP 10/325 1 TAB TABLET PO PRN ×2 (06:24→20:19)
[2017-05-03 07:00] VITALS: BP 143/95
[2017-05-03] MEDS: BUDESONIDE 0.5 MG/2 ML NEBU. NEB SCH ×2 (07:23→19:26)
[2017-05-03] MEDS: IPRATRPIUM/ALBUTEROL 0.5/2.5MG 3 ML NEBU. NEB SCH ×4 (07:23→19:26)
[2017-05-03] MEDS: PROMETH/CODEINE 6.25/10MG 5 ML SYRUP. PO PRN ×3 (07:36→20:18)
[2017-05-03] MEDS: NYSTATIN 100,000 UNITS/ML 5 ML ORAL.SUSP. SWSW SCH ×4 (07:36→20:19)
[2017-05-03] MEDS: hydroCHLOROthiazide 12.5 MG CAPSULE PO SCH (07:37)
[2017-05-03] MEDS: methylPREDNISolone SOD SUCC PF 125 MG/2 ML VIAL. IV SCH ×3 (07:37→20:18)
[2017-05-03] MEDS: DOCUSATE SODIUM 100 MG CAPSULE. PO SCH (07:37)
[2017-05-03] MEDS: DOXYCYCLINE HYCLATE 100 MG TABLET PO SCH ×2 (07:37→20:18)
[2017-05-03] MEDS: LOSARTAN POTASSIUM 50 MG TABLET. PO SCH (07:38)
[2017-05-03] MEDS: ALPRAZolam 1 MG TABLET PO PRN ×2 (07:38→20:18)
[2017-05-03] MEDS: PANTOPRAZOLE 40 MG TABLET.DR. PO SCH (07:38)
[2017-05-03] MEDS: POLYETHYLENE GLYCOL 3350 17 GM PACKET. PO SCH (07:39)
[2017-05-03] MEDS: ROFLUMILAST 500 MCG TABLET. PO SCH (07:39)
[2017-05-03] MEDS: PARoxetine 20 MG TABLET PO SCH (07:39)
--- NOTE | 2017-05-03 09:53 | PDOC ---
SUBJECTIVE Subjective had BM yesterday, less abd pain, nausea better, no vomiting, breathing better, pain is better OBJECTIVE Vital Signs Vital Signs Date Time Temp Pulse Resp B/P (MAP) Pulse Ox O2 Delivery O2 Flow Rate FiO2 05/03/17 08:00 Nasal Cannula 2.0 05/03/17 07:38 84 143/95 05/03/17 07:25 97 Room Air 05/03/17 07:24 97 Nasal Cannula 2.0 05/03/17 07:00 98.2 84 22 143/95 (111) 100 Nasal Cannula 2.0 98.2 05/03/17 06:24 20 Nasal Cannula 2.0 05/02/17 23:00 98.2 82 16 91/54 (66) 98 98.2 05/02/17 22:41 18 05/02/17 21:24 22 Nasal Cannula 2.0 05/02/17 20:00 Nasal Cannula 2.0 05/02/17 19:47 Room Air 05/02/17 19:00 98.2 99 20 121/68 (85) 96 98.2 05/02/17 18:00 Room Air 05/02/17 17:29 Room Air 05/02/17 15:00 98.3 88 18 107/66 (80) 95 Room Air 98.3 05/02/17 10:44 97.7 98 18 109/61 (77) 98 Nasal Cannula 2.0 97.7 05/02/17 10:00 73 123/67 I & O Intake and Output 05/03/17 07:00 Intake Total 420 ml Balance 420 ml Intake Oral 420 ml # Voids 5 # Bowel Movements 2 PHYSICAL EXAM Physical Exam lungs with better air movement, less wheezing abd less bloating ext no edema ASSESSMENT/PLAN Assessment/Plan improving, increase activity today and hope home in AM Problems: FRANCES METZGER MD May 03, 2017 09:53
--- NOTE | 2017-05-03 10:31 | PDOC ---
PULMONARY PROGRESS NOTES Subjective feels better today Vitals Vital Signs Date Time Temp Pulse Resp B/P (MAP) Pulse Ox O2 Delivery O2 Flow Rate FiO2 05/03/17 08:00 Nasal Cannula 2.0 05/03/17 07:38 84 143/95 05/03/17 07:25 97 05/03/17 07:00 98.2 22 98.2 General: Alert, No acute distress HEENT: Other Lungs: Wheezing (faint) Cardiovascular: S1, S2 Abdomen: Soft, Non-tender Neuro Exam: Alert Extremities: No Edema Skin: Warm Labs Laboratory Tests Test 05/02/17 09:37 White Blood Count 8.6 x10^3/uL (4.0-11.0) Red Blood Count 3.76 x10^6/uL (3.50-5.40) Hemoglobin 11.8 g/dL (12.0-15.5) Hematocrit 34.2 % (36.0-47.0) Mean Corpuscular Volume 91 fL (79-100) Mean Corpuscular Hemoglobin 31 pg (25-35) Mean Corpuscular Hemoglobin Concent 34 g/dL (31-37) Red Cell Distribution Width 14.7 % (11.5-14.5) Platelet Count 297 x10^3/uL (140-400) Neutrophils (%) (Auto) 84 % (31-73) Lymphocytes (%) (Auto) 8 % (24-48) Monocytes (%) (Auto) 8 % (0-9) Eosinophils (%) (Auto) 0 % (0-3) Basophils (%) (Auto) 1 % (0-3) Neutrophils # (Auto) 7.2 x10^3uL (1.8-7.7) Lymphocytes # (Auto) 0.7 x10^3/uL (1.0-4.8) Monocytes # (Auto) 0.6 x10^3/uL (0.0-1.1) Eosinophils # (Auto) 0.0 x10^3/uL (0.0-0.7) Basophils # (Auto) 0.0 x10^3/uL (0.0-0.2) Sodium Level 136 mmol/L (136-145) Potassium Level 4.4 mmol/L (3.5-5.1) Chloride Level 100 mmol/L (98-107) Carbon Dioxide Level 34 mmol/L (21-32) Anion Gap 2 (6-14) Blood Urea Nitrogen 38 mg/dL (7-20) Creatinine 0.8 mg/dL (0.6-1.0) Estimated GFR (Cockcroft-Gault) 73.7 Glucose Level 128 mg/dL (70-99) Calcium Level 8.0 mg/dL (8.5-10.1) Amylase Level 64 U/L (25-115) Medications Active Scripts Medications Dose Route/Sig Max Daily Dose Days Date Category Nystatin 100,000 Unit/1 Ml Oral.susp 5 Ml SWSW [id number] 10 04/25/17 Rx Doxycycline Hyclate 100 Mg Tablet.dr 1 Tab PO BID 04/25/17 Rx Prednisone 20 Mg Tablet 20 Mg PO 3X3DAY THEN 2X3DAY T 9 04/25/17 Rx Prometh-Codein 6.25-10 mg/5 ml (Promethazine HCl/Codeine) 5 Ml Syrup 5 Ml PO QID 10 04/25/17 Rx Proair Hfa Inhaler (Albuterol Sulfate) 8.5 Gm Hfa.aer.ad 1 Puff INH PRN Q6HRS PRN 04/21/17 Rx Acetaminophen-Cod #3 Tablet (Acetaminophen/Codeine Phosphate) 1 Each Tablet 1 Tab PO PRN Q6HRS PRN 2 04/20/17 Rx Hydrocodone-Apap 10-325 (Hydrocodone Bit/Acetaminophen) 1 Each Tablet 1 Tab PO PRN Q8HRS PRN 14 04/18/17 Rx Xanax (Alprazolam) 1 Mg Tablet 1 Tab PO QIDPRN PRN 04/18/17 Rx Losartan-Hctz 100-12.5 Mg Tab (Losartan/Hydrochlorothiazide) 1 Each Tablet 1 Each PO DAILY 04/15/17 Reported Zyrtec (Cetirizine Hcl) 10 Mg Capsule 10 Mg PO 04/15/17 Reported Probiotic (Lactobacillus Acidophilus) 1 Each Capsule 1 Each PO 04/15/17 Reported Zofran (Ondansetron Hcl) 8 Mg Tablet 1 Tab PO Q8HRS PRN 07/14/16 Rx Paroxetine Hcl 20 Mg Tablet 20 Mg PO DAILY 30 06/27/16 Rx Montelukast Sodium Tablet (Montelukast Sodium) 10 Mg Tablet 10 Mg PO QHS 30 06/27/16 Rx Mucinex (Guaifenesin) 600 Mg Tablet.er 600 Mg PO BID 30 06/27/16 Rx Anoro Ellipta 62.5-25 Mcg Inh (Umeclidinium Brm/Vilanterol Tr) 1 Each Disk.w.dev 1 Each IH DAILY 06/06/16 Reported Duoneb 0.5-3(2.5) Mg/3 Ml (Albuterol/Ipratropium) 3 Ml Ampul.neb 3 Ml NEB RTQID 30 03/19/16 Rx Ventolin Hfa Inhaler (Albuterol Sulfate) 18 Gm Hfa.aer.ad 2 Puff INH PRN Q4HRS PRN 03/14/16 Reported Nexium Capsule (Esomeprazole Magnesium) 20 Mg Capsule.dr 2 Cap PO DAILY 03/14/16 Reported Daliresp (Roflumilast) 500 Mcg Tablet 1 Tab PO DAILY 03/14/16 Reported Impression . 1. Dyspnea with bilateral expiratory wheezes secondary to chronic obstructive pulmonary disease exacerbation. 2. Chest wall pain. I suspect this is atypical in most likely related to her coughing spell. CP resolved. V/Q scan cancelled 3. Hypoxia secondary to chronic obstructive pulmonary disease exacerbation. Normally she does not use oxygen on a regular basis at home. 4. History of stable lung nodule, being followed in our office by Dr. Victor. There was 8 mm in size in the right lower lobe and 0.6 mm in size in the right middle lobe. Plan . 1. Continue with present DuoNeb. 2. Continue with present oxygen with a slow wean. 3. Continue with IV steroids. 4. possible dc in 24-48 hrs 5. Follow up in our office post-discharge for lung scan in 6 months. FABIENNE FARIAS MD May 03, 2017 10:31
[2017-05-03 10:57] VITALS: BP 112/74
[2017-05-03] MEDS: POTASSIUM CHLORIDE IV SCH (12:12)
[2017-05-03] MEDS: NORMAL SALINE IV SCH (12:12)
[2017-05-03 14:40] VITALS: BP 114/66
[2017-05-03 19:00] VITALS: BP 133/84
[2017-05-03] MEDS: MONTELUKAST SODIUM 10 MG TABLET. PO SCH (20:18)
[2017-05-03] MEDS: KETOROLAC 15 MG/ML VIAL. IV PRN (20:30)
[2017-05-03 23:00] VITALS: BP 128/85
[2017-05-03] MEDS: ALBUTEROL SULFATE 2.5 MG/3 ML NEBU. NEB PRN (23:30)
[2017-05-03] MEDS ORDERED: MORPHINE SULFATE 2 MG/ML DISP.SYRIN. IV ONE (23:30)
[2017-05-03] MEDS ORDERED: MORPHINE SULFATE 4 MG/ML DISP.SYRIN. IV ONE (23:35)
[2017-05-04] MEDS: POTASSIUM CHLORIDE IV SCH (00:27)
[2017-05-04] MEDS: NORMAL SALINE IV SCH (00:27)
[2017-05-04] MEDS: KETOROLAC 15 MG/ML VIAL. IV PRN (04:06)
[2017-05-04] MEDS: HYDROcodone/APAP 10/325 1 TAB TABLET PO PRN ×2 (04:06→14:31)
[2017-05-04] MEDS: PROMETH/CODEINE 6.25/10MG 5 ML SYRUP. PO PRN (04:06)
[2017-05-04 07:00] VITALS: BP 113/65
[2017-05-04] MEDS: IPRATRPIUM/ALBUTEROL 0.5/2.5MG 3 ML NEBU. NEB SCH ×2 (07:45→11:39)
[2017-05-04] MEDS: BUDESONIDE 0.5 MG/2 ML NEBU. NEB SCH (07:45)
[2017-05-04] MEDS: NYSTATIN 100,000 UNITS/ML 5 ML ORAL.SUSP. SWSW SCH ×2 (08:02→14:31)
[2017-05-04] MEDS: methylPREDNISolone SOD SUCC PF 125 MG/2 ML VIAL. IV SCH ×2 (08:02→14:32)
[2017-05-04] MEDS: DOCUSATE SODIUM 100 MG CAPSULE. PO SCH (08:03)
[2017-05-04] MEDS: hydroCHLOROthiazide 12.5 MG CAPSULE PO SCH (08:03)
[2017-05-04] MEDS: DOXYCYCLINE HYCLATE 100 MG TABLET PO SCH (08:03)
[2017-05-04] MEDS: ROFLUMILAST 500 MCG TABLET. PO SCH (08:03)
[2017-05-04] MEDS: LOSARTAN POTASSIUM 50 MG TABLET. PO SCH (08:04)
[2017-05-04] MEDS: PANTOPRAZOLE 40 MG TABLET.DR. PO SCH (08:04)
[2017-05-04] MEDS: PARoxetine 20 MG TABLET PO SCH (08:04)
[2017-05-04] MEDS: POLYETHYLENE GLYCOL 3350 17 GM PACKET. PO SCH (08:05)
--- NOTE | 2017-05-04 09:57 | PDOC ---
OBJECTIVE Vital Signs Vital Signs Date Time Temp Pulse Resp B/P (MAP) Pulse Ox O2 Delivery O2 Flow Rate FiO2 05/04/17 08:04 75 113/65 05/04/17 07:45 98 Nasal Cannula 3.0 05/04/17 07:00 98.2 75 16 113/65 (81) 99 Nasal Cannula 2.0 98.2 05/04/17 05:42 18 Nasal Cannula 3.0 05/04/17 04:06 19 Nasal Cannula 3.0 05/04/17 00:08 18 Nasal Cannula 3.0 05/03/17 23:38 18 Nasal Cannula 3.0 05/03/17 23:33 20 Nasal Cannula 3.0 05/03/17 23:29 Nasal Cannula 2.0 05/03/17 23:00 98.7 94 20 128/85 (99) 99 Nasal Cannula 2.0 98.7 05/03/17 22:32 18 Nasal Cannula 3.0 05/03/17 20:19 25 Nasal Cannula 3.0 05/03/17 20:00 Nasal Cannula 3.0 05/03/17 19:15 97 Nasal Cannula 2.0 05/03/17 19:00 98.3 110 24 133/84 (100) 96 Nasal Cannula 2.0 98.3 05/03/17 15:03 Nasal Cannula 2.0 05/03/17 14:40 98.3 109 22 114/66 (82) 99 Nasal Cannula 2.0 98.3 05/03/17 10:57 Nasal Cannula 2.0 05/03/17 10:57 98.3 91 22 112/74 (87) 97 Nasal Cannula 2.0 98.3 I & O Intake and Output 05/04/17 07:00 Intake Total 160 ml Balance 160 ml Intake Oral 160 ml # Voids 6 FRANCES METZGER MD May 04, 2017 09:57
--- NOTE | 2017-05-04 10:33 | PDOC ---
PULMONARY PROGRESS NOTES Subjective feels better today Vitals Vital Signs Date Time Temp Pulse Resp B/P (MAP) Pulse Ox O2 Delivery O2 Flow Rate FiO2 05/04/17 08:04 75 113/65 05/04/17 08:00 Nasal Cannula 2.0 05/04/17 07:45 98 05/04/17 07:00 98.2 16 98.2 General: Alert, No acute distress HEENT: Other Lungs: Wheezing (RESOLVED) Cardiovascular: S1, S2 Abdomen: Soft, Non-tender Neuro Exam: Alert Extremities: No Edema Skin: Warm Medications Active Scripts Medications Dose Route/Sig Max Daily Dose Days Date Category Nystatin 100,000 Unit/1 Ml Oral.susp 5 Ml SWSW [id number] 10 04/25/17 Rx Doxycycline Hyclate 100 Mg Tablet.dr 1 Tab PO BID 04/25/17 Rx Prednisone 20 Mg Tablet 20 Mg PO 3X3DAY THEN 2X3DAY T 9 04/25/17 Rx Prometh-Codein 6.25-10 mg/5 ml (Promethazine HCl/Codeine) 5 Ml Syrup 5 Ml PO QID 10 04/25/17 Rx Proair Hfa Inhaler (Albuterol Sulfate) 8.5 Gm Hfa.aer.ad 1 Puff INH PRN Q6HRS PRN 04/21/17 Rx Acetaminophen-Cod #3 Tablet (Acetaminophen/Codeine Phosphate) 1 Each Tablet 1 Tab PO PRN Q6HRS PRN 2 04/20/17 Rx Hydrocodone-Apap 10-325 (Hydrocodone Bit/Acetaminophen) 1 Each Tablet 1 Tab PO PRN Q8HRS PRN 14 04/18/17 Rx Xanax (Alprazolam) 1 Mg Tablet 1 Tab PO QIDPRN PRN 04/18/17 Rx Losartan-Hctz 100-12.5 Mg Tab (Losartan/Hydrochlorothiazide) 1 Each Tablet 1 Each PO DAILY 04/15/17 Reported Zyrtec (Cetirizine Hcl) 10 Mg Capsule 10 Mg PO 04/15/17 Reported Probiotic (Lactobacillus Acidophilus) 1 Each Capsule 1 Each PO 04/15/17 Reported Zofran (Ondansetron Hcl) 8 Mg Tablet 1 Tab PO Q8HRS PRN 07/14/16 Rx Paroxetine Hcl 20 Mg Tablet 20 Mg PO DAILY 30 06/27/16 Rx Montelukast Sodium Tablet (Montelukast Sodium) 10 Mg Tablet 10 Mg PO QHS 30 06/27/16 Rx Mucinex (Guaifenesin) 600 Mg Tablet.er 600 Mg PO BID 30 06/27/16 Rx Anoro Ellipta 62.5-25 Mcg Inh (Umeclidinium Brm/Vilanterol Tr) 1 Each Disk.w.dev 1 Each IH DAILY 06/06/16 Reported Duoneb 0.5-3(2.5) Mg/3 Ml (Albuterol/Ipratropium) 3 Ml Ampul.neb 3 Ml NEB RTQID 30 03/19/16 Rx Ventolin Hfa Inhaler (Albuterol Sulfate) 18 Gm Hfa.aer.ad 2 Puff INH PRN Q4HRS PRN 03/14/16 Reported Nexium Capsule (Esomeprazole Magnesium) 20 Mg Capsule.dr 2 Cap PO DAILY 03/14/16 Reported Daliresp (Roflumilast) 500 Mcg Tablet 1 Tab PO DAILY 03/14/16 Reported Impression . 1. Dyspnea with bilateral expiratory wheezes secondary to chronic obstructive pulmonary disease exacerbation. 2. Chest wall pain. I suspect this is atypical in most likely related to her coughing spell. CP resolved. V/Q scan cancelled 3. Hypoxia secondary to chronic obstructive pulmonary disease exacerbation. Normally she does not use oxygen on a regular basis at home. 4. History of stable lung nodule, being followed in our office by Dr. Victor. There was 8 mm in size in the right lower lobe and 0.6 mm in size in the right middle lobe. Plan . 1. Continue with present DuoNeb. 2. Continue with present oxygen with a slow wean. 3. Continue with steroids.taper 4. ok with dc home 5. Follow up in our office post-discharge for lung scan in 6 months. FABIENNE FARIAS MD May 04, 2017 10:33
[2017-05-04 10:59] VITALS: BP 113/66
[2017-05-04] MEDS: ALPRAZolam 1 MG TABLET PO PRN (14:31)
[2017-05-04 14:50] VITALS: BP 133/75
== END 2017-05-04 15:30 | disposition home health service (06) | DRG 189 ==
LOC: ER 13:58 → 5 SOUTH 16:38
PROVIDERS: ADMIT Internal Medicine; ATTEND Internal Medicine
DX: J96.21 Acute and chronic respiratory failure with hypoxia (principal); J44.1 Chronic obstructive pulmonary disease with (acute) exacerbation; I10 Essential (primary) hypertension; K21.9 Gastro-esophageal reflux disease without esophagitis; M19.90 Unspecified osteoarthritis, unspecified site; F32.9 Major depressive disorder, single episode, unspecified; F41.9 Anxiety disorder, unspecified; R07.89 Other chest pain; G62.9 Polyneuropathy, unspecified; K57.90 Diverticulosis of intestine, part unspecified, without perforation or abscess without bleeding; Z82.49 Family history of ischemic heart disease and other diseases of the circulatory system; Z90.710 Acquired absence of both cervix and uterus; Z87.891 Personal history of nicotine dependence; Z98.1 Arthrodesis status; Z99.81 Dependence on supplemental oxygen; R00.0 Tachycardia, unspecified
CPT/HCPCS: 36415; 36600; 71020; 80048; 80053; 81001; 82150; 83880; 84484; 85007; 85027; 93005; 94250; 94640; 94760; 96374; 96375; J1885; J2270; J2920; J2930; J3010; J7030; J7613; J7620; J7626; Q0162; 99285-25

== ENCOUNTER 2017-09-15 10:21 | Emergency (ER) | payer MEDICARE ==
[~2017-09-15] VITALS: Ht 154.9 cm; Wt 71.7 kg
[~2017-09-15 10:21] MED LIST changes: +ALPR1TAB6 PO; -LOSA1TAB18 PO; +LOSA1TAB25 PO
[2017-09-15] MEDS ORDERED: ALBUTEROL SULFATE 2.5 MG/3 ML NEBU. CONT NEB ONE (10:30)
[2017-09-15] MEDS ORDERED: IPRATRPIUM/ALBUTEROL 0.5/2.5MG 3 ML NEBU. NEB ONE (10:30)
[2017-09-15 10:55] LABS: BASO # 0.1 x10^3/uL (0.0-0.2); BASO % 1 % (0-3); EOS % 1 % (0-3); HEMATOCRIT 43.9 % (36.0-47.0); LYMPH # 1.6 x10^3/uL (1.0-4.8); LYMPH % 22 % (24-48); MEAN CORPUSCULAR HEMOGLOBIN 30 pg (25-35); MEAN CORPUSCULAR HGB CONC 34 g/dL (31-37); MEAN CORPUSCULAR VOLUME 88 fL (79-100); MONO % 6 % (0-9); NEUT % 70 % (31-73); PLATELET COUNT 454 x10^3/uL (140-400); RED CELL DISTRIBUTION WIDTH 12.7 % (11.5-14.5); WHITE BLOOD COUNT 7.3 x10^3/uL (4.0-11.0)
--- NOTE | 2017-09-15 11:02 | EKG ---
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
[2017-09-15 11:08] LABS: GFR 56.7; POTASSIUM 4.2 mmol/L (3.5-5.1)
[2017-09-15 11:14] LABS: ALBUMIN 3.8 g/dL (3.4-5.0); DIRECT BILIRUBIN 0.1 mg/dL (0.0-0.2); TOTAL BILIRUBIN 0.3 mg/dL (0.2-1.0); TOTAL PROTEIN 7.7 g/dL (6.4-8.2)
--- NOTE | 2017-09-15 11:30 | RAD ---
Indication: Increasing shortness of air. Time of exam 11:02 AM Comparison is made with prior chest from 08/14/2017. The heart size is normal. There appear to be bullous emphysematous changes in the upper lung white. No infiltrates are seen. No effusion or pneumothorax is identified. Impression: No acute feature identified.
[2017-09-15] MEDS ORDERED: ONDANSETRON PF 4 MG/2 ML VIAL. IV PRN (11:45)
[2017-09-15] MEDS ORDERED: MORPHINE SULFATE 2 MG/ML DISP.SYRIN. IV PRN (11:45)
[2017-09-15] MEDS ORDERED: IPRATRPIUM/ALBUTEROL 0.5/2.5MG 3 ML NEBU. NEB SCH (12:00)
[2017-09-15 12:30] VITALS: BP 131/80
[2017-09-15] MEDS ORDERED: PRED50TA PO (12:55)
[2017-09-15] MEDS ORDERED: predniSONE 20 MG TABLET PO ONE (13:00)
[2017-09-15] MEDS ORDERED: predniSONE 10 MG TABLET PO ONE (13:00)
--- NOTE | 2017-09-16 16:46 | PHYS DOC ---
Past Medical History Past Medical History: Anxiety, COPD, Hypertension Additional Past Medical Histor: CATARACTS Past Surgical History: Hysterectomy, Tonsillectomy Additional Past Surgical Histo: SPINAL FUSION, LYPOMA REMOVED, R KNEE, L ELBOW NERVES, cataract sx Alcohol Use: Rarely Drug Use: None Adult General Chief Complaint Chief Complaint: SHORTNESS OF BREATH HPI HPI 57-year-old female presenting to the emergency department today with worsening shortness of breath over the last 4 days. She has a long-standing history of COPD and is on 2 L nasal cannula at home. Her shortness of breath is exertional. She denies any pain. Location lungs. Duration intermittent. Worse with walking. Review of systems is negative for chest pain abdominal nausea vomiting fevers or chills. All other review of systems is negative unless otherwise noted in history of present illness. ED course: 57-year-old female presenting the emergency department today with shortness of breath likely secondary to COPD. She was given DuoNeb and I was admitting her to the hospital when she stated she wanted to leave AGAINST MEDICAL ADVICE. She did desire outpatient steroids which I prescribed for her. AMA I informed the patient of their right to a medical screening exam and any treatment and/or stabilization that may be necessary regardless of their ability to pay. The patient appears to have intact insight, judgment, and reason. In my opinion, this patient has the capacity to make decisions. The patient presented with COPD exacerbation. My initial plan prior to the pt expressing the desire to leave was to admit for IV steroids and nebulizers. I explained the risk of and disability to the patient in plain language which they were able to demonstrate in their own words verbal understanding. The pt has verbalized understanding of my concerns. I offered alternatives to the therapy including oupt steroids and close f/u. I recommended the pt follow up with her pcp tomorrow. I explained that at any time if the patient changed their mind, we are always open and would be happy to have them back. The patient refused further care and then left against medical advice. Review of Systems Review of Systems SEE ABOVE. Current Medications Current Medications Current Medications Medications (Trade) Dose Ordered Sig/Marian Start Time Stop Time Status Last Admin Dose Admin Albuterol Sulfate (Ventolin Neb Soln) 10 mg 1X ONCE 09/15/17 10:30 09/15/17 10:31 DC 09/15/17 10:30 10 MG Albuterol/ Ipratropium (Duoneb) 3 ml RTQID 09/15/17 12:00 09/15/17 13:13 DC Morphine Sulfate 2 mg PRN Q2HR PRN 09/15/17 11:45 09/15/17 13:13 DC Ondansetron HCl (Zofran) 4 mg PRN Q8HRS PRN 09/15/17 11:45 09/15/17 13:13 DC Prednisone (Prednisone) 50 mg 1X ONCE 09/15/17 13:00 09/15/17 13:01 DC Allergies Allergies Allergies Coded Allergies Type Severity Reaction Last Updated Verified amlodipine Allergy Intermediate Swelling 04/21/17 Yes pregabalin Allergy Intermediate both legs from knee down to feet swelled up Yes Physical Exam Physical Exam SEE ABOVE Constitutional: Well developed, well nourished, increased work of breathing. HENT: Normocephalic, atraumatic, bilateral external ears normal, oropharynx moist, no oral exudates, nose normal. [] Eyes: PERRLA, EOMI, conjunctiva normal, no discharge. [] Neck: Normal range of motion, no tenderness, supple, no stridor. [] Cardiovascular:Heart rate regular rhythm, no murmur [] Lungs & Thorax: Wheezing bilaterally. Abdomen: Bowel sounds normal, soft, no tenderness, no masses, no pulsatile masses. [] Skin: Warm, dry, no erythema, no rash. [] Back: No tenderness, no CVA tenderness. [] Extremities: No tenderness, no cyanosis, no clubbing, ROM intact, no edema. [] Neurologic: Alert and oriented X 3, normal motor function, normal sensory function, no focal deficits noted. [] Psychologic: Affect normal, judgement normal, mood normal. [] Current Patient Data Vital Signs Vital Signs Date Time Temp Pulse Resp B/P (MAP) Pulse Ox O2 Delivery O2 Flow Rate FiO2 09/15/17 12:30 92 24 131/80 (97) 99 Nasal Cannula 2.0 09/15/17 10:24 97.5 97.5 Lab Values Laboratory Tests Test 09/15/17 10:45 White Blood Count 7.3 x10^3/uL (4.0-11.0) Red Blood Count 5.00 x10^6/uL (3.50-5.40) Hemoglobin 15.0 g/dL (12.0-15.5) Hematocrit 43.9 % (36.0-47.0) Mean Corpuscular Volume 88 fL (79-100) Mean Corpuscular Hemoglobin 30 pg (25-35) Mean Corpuscular Hemoglobin Concent 34 g/dL (31-37) Red Cell Distribution Width 12.7 % (11.5-14.5) Platelet Count 454 x10^3/uL (140-400) H Neutrophils (%) (Auto) 70 % (31-73) Lymphocytes (%) (Auto) 22 % (24-48) L Monocytes (%) (Auto) 6 % (0-9) Eosinophils (%) (Auto) 1 % (0-3) Basophils (%) (Auto) 1 % (0-3) Neutrophils # (Auto) 5.1 x10^3uL (1.8-7.7) Lymphocytes # (Auto) 1.6 x10^3/uL (1.0-4.8) Monocytes # (Auto) 0.5 x10^3/uL (0.0-1.1) Eosinophils # (Auto) 0.1 x10^3/uL (0.0-0.7) Basophils # (Auto) 0.1 x10^3/uL (0.0-0.2) Sodium Level 142 mmol/L (136-145) Potassium Level 4.2 mmol/L (3.5-5.1) Chloride Level 104 mmol/L (98-107) Carbon Dioxide Level 28 mmol/L (21-32) Anion Gap 10 (6-14) Blood Urea Nitrogen 20 mg/dL (7-20) Creatinine 1.0 mg/dL (0.6-1.0) Estimated GFR (Cockcroft-Gault) 56.7 Glucose Level 151 mg/dL (70-99) H Calcium Level 9.0 mg/dL (8.5-10.1) Total Bilirubin 0.3 mg/dL (0.2-1.0) Direct Bilirubin 0.1 mg/dL (0.0-0.2) Aspartate Amino Transferase (AST) 17 U/L (15-37) Alanine Aminotransferase (ALT) 28 U/L (14-59) Alkaline Phosphatase 86 U/L (46-116) Troponin I Quantitative < 0.017 ng/mL (0.000-0.055) LG-Wms-T-Type Natriuretic Peptide 81 pg/mL (0-124) Total Protein 7.7 g/dL (6.4-8.2) Albumin 3.8 g/dL (3.4-5.0) Lipase 206 U/L (73-393) Laboratory Tests 09/15/17 10:45 Laboratory Tests 09/15/17 10:45 EKG EKG [] Radiology/Procedures Radiology/Procedures [] Course & Med Decision Making Course & Med Decision Making Pertinent Labs and Imaging studies reviewed. (See chart for details) [] Dragon Disclaimer Dragon Disclaimer This electronic medical record was generated, in whole or in part, using a voice recognition dictation system. Departure Departure Impression: Primary Impression: COPD (chronic obstructive pulmonary disease) Disposition: 07 AGAINST MEDICAL ADVICE Condition: GUARDED Referrals: FRANCES METZGER MD (PCP) Patient Instructions: Chronic Obstructive Pulmonary Disease, [id number] Scripts Prednisone (PREDNISONE) 50 Mg Tablet 1 TAB PO DAILY, #5 TAB Prov: CALI RODRIGUEZ MD 09/15/17 CALI RODRIGUEZ MD Sep 16, 2017 16:46
== END 2017-09-15 13:00 | disposition home or self-care (01) ==
LOC: ER 10:21
DX: J44.1 Chronic obstructive pulmonary disease with (acute) exacerbation (principal); I10 Essential (primary) hypertension; Z88.8 Allergy status to other drugs, medicaments and biological substances
CPT/HCPCS: 36415; 71010; 80048; 80076; 83690; 83880; 84484; 85025; 93005; 94644; 99285; J7613; J7620; 94640

== ENCOUNTER 2017-09-22 14:00 | Emergency (ER) | payer MEDICARE ==
[2017-09-22] MEDS: IPRATRPIUM/ALBUTEROL 0.5/2.5MG 3 ML NEBU. NEB (15:19)
== END 2017-09-22 16:25 | disposition home or self-care (01) ==
LOC: ER 14:00
DX: J44.9 Chronic obstructive pulmonary disease, unspecified (principal); H92.02 Otalgia, left ear; F41.9 Anxiety disorder, unspecified; I10 Essential (primary) hypertension; Z87.891 Personal history of nicotine dependence; Z99.81 Dependence on supplemental oxygen; Z88.8 Allergy status to other drugs, medicaments and biological substances
CPT/HCPCS: 93005; 94640; 99284-25; J7620

== ENCOUNTER → 2017-10-19 | Outpatient (CLI) | payer MEDICARE ==
[2017-10-19] MEDS: REGADENOSON 0.4 MG/5 ML DISP.SYRIN. IV (10:57)
== END | disposition home or self-care (01) ==
LOC: NM 08:32
DX: R07.9 Chest pain, unspecified (principal)
CPT/HCPCS: 78452; 93017; 96374; 96375; 96376; A9500; J2785